=== PATIENT | female | born 2000 | race Caucasian/White ===

== ENCOUNTER 2025-01-20 10:54 | Outpatient (AMB) | payer OTHER, SELFPAY ==
--- NOTE | 2025-01-20 10:59 | A.OFFPC_ITS ---
Vital Signs 01/20/25 11:08 Height 5 ft 8 in Weight 265 lb BMI 40.3 BP 97/66 Blood Pressure Location Rt brachial Position Sitting Respiration 12 Pulse 77 Pulse Source Pulse Oximeter Temp 96.8 F Temp Source Oral Pulse Oximetry (%) 98 Oxygen Delivery Method Room Air Intake Visit Reasons: EST CARE Intake Note: new patient to establish care Photo Equipment Technician Required: No Allergies No Known Allergies Allergy (Verified 01/20/25 11:15) Medication List - Last Reconciled 01/20/25 by UHMZA ValdesP- aripiprazole (Abilify) 15 mg PO DAILY benztropine 0.5 mg PO DAILY gabapentin 300 mg PO BEDTIME prazosin 1 mg PO BEDTIME sertraline (Zoloft) 50 mg PO DAILY trazodone 50 mg PO BEDTIME PRN Tobacco use date assessed: 01/20/25 Dental Screening Dental Screen Date: 01/20/25 Did you have a dental visit in the last 12 months?: Yes Did you have a dental problem in the last 6 months where you did not have access to dental care?: No Was dental information given to patient?: Patient has dentist HPI HPI Comments History of Present Illness Details 24 y/o F with obesity, bipolar, MDD, ANNAMARIA , Hep c cured, GERD, chronic abd pain, Vape nicotine, Heroin abuse in remission Surgery wisdom teeth removal family hx: paternal uncle pancreatic ca (), no DM or other cancers, MGM + CAD Social: 1 dtr alive and well, age 4. Lives w/ dtr. 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 - The patient experiences nicotine use d isorder, related to vaping, and reports high frequency use with difficulty quitting. Vaping nicotine wants to quit - Binge eating contributes to weight man agement challenges, complicated by current psychiatric medication regimen. - Chronic gastrointestinal disturbances are noted, though not yet evaluated by a specialist. -reports hx of high triglycerides, conc erning for potential cardiovascular risk exacerbated by nicotine use. 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 - Reports using nicotine vaping heavily - No ongoing illicit substance use; main tains sobriety post- - Mother to one daughter, aged nearly fo ur - Desires counseling services for mental health but encounters insurance-related difficulties Health Maintenance - Tetanus immunization up to date (last received in 2020) - Pending influenza vaccination during c urrent visit - Recent STD screening with normal resul ts from WAREHOUSE DIRECTOR - Partaking in psychiatric care for [facility], bipolar disorder medication recently adjusted Review of [facility] - wears contacts, UTD on eye exam - Gastrointestinal: Reports chronic abdo randy pain, recurrent diarrhea, and constipation. Hep C cured w/ viral meds - Neurologic: Denies visual changes but mentions dependence on contact lenses Physical Exam General: Well developed, well nourished, in no acute distress. Appears stated age. Head: Normocephalic, atraumatic. Eyes: Pupils are equal, round and reactive to light and accommodation. Conjunctivae are clear. Vision grossly normal. Patient wears contact lenses. Ears: TMs clear AU, EACS WNL Nose: Patent, without discharge. Neck: Supple, no adenopathy or thyromegaly. No pain or discomfort noted upon examination. Breast: Edu on SBE Lungs: Clear to auscultation bilaterally. No rales, rhonchi or wheeze noted. Good air flow in all garrett. Heart: Regular rate and rhythm. No murmurs, click, rubs or gallops are noted. Abd: soft, hepatomegaly, nontender : Deferred. Reviewed recommendations for routine [employer] Pulses: Peripheral pulses are equal and palpable bilaterally. Extremities: No clubbing, cyanosis nor edema is noted. No swelling in lower legs. Neurologic: Gait and station normal. Cranial Nerves 2-12 intact. Motor strength grossly symmetrical and intact. No sensory loss. Balance normal. Skin: No rashes, ulcers, or lesions noted. Turgor is good. Skin color is good. Hair and nails are without abnormalities. Psych: Normal eye contact, affect and mood appropriate, and normal interactions. Patient is alert and appropriate to context. Positive screens for anxiety and depression, currently managed by psychiatry. Discussion Notes During the visit, I reviewed the patient's primary concerns, including vaping, binge eating, and gastrointestinal symptoms. I recommended seeing a gastr oenterologist to evaluate her chronic gastrointestinal disturbances. In discussing nicotine cessation, I emphasized the need to incorporate psychiatric input due to her history of substance use. I also provided a referral for counseling through [facility] for additional support. We discussed ongoing monitoring of her psychiatric medications and how those might affect her associated conditions, stressing the importance of maintaining regular check-ins with her psychiatrist. The patient agreed to undertake screening labs today to assess general health parameters like liver and kidney function, and a referral for gastrointestinal evaluation was ordered. For vaccination updates, the patient consented to receiving a flu shot today. We will follow up on her lab results via the patient portal. Assessment and Plan 1. Nicotine Use Disorder: The patient is struggling with pervasive vaping habits. Coordination with psychiatry will continue to manage cessation efforts, acknowledging her past substance abuse issues. 2. Binge Eating Disorder: This condition appears to interfere with weight management, possibly linked to psychiatric medications. A dual approach of psychotherapy and careful pharmacological management is being pursued. 3. Gastrointestinal Symptoms: A comprehe nsive evaluation by a solid glass rod dowel machine operator is required given the patient's chronic abdominal pain, diarrhea, and constipation. 4. Hypertriglyceridemia: The observed el evation in triglycerides suggests risk factors for cardiovascular disease, further exacerbated by nicotine use. My plan involves dietary management and addressing vaping. 5. Mental Health Disorders: Existing psy chiatric conditions are under active management with recent medication adjustments; additional counseling support has been arranged. Patient Instructions - Follow up with solid glass rod dowel machine operator to a ssess chronic stomach pain, diarrhea, and constipation - Continue psychiatric care with Dr. Herbie Joseph - Utilize the referral to [facility] for therapy services - Maintain current medication regimen an d inform of any changes - Receive the flu vaccine today - Engage with the patient portal for lab results and communication with the office Consent Consent for procedures, screenings, and management plans including gastrointestinal referral and psychotherapy services has been discussed and documented. The benefits of the interventions and continuity of the patient's psychiatric and primary care coverage have been reviewed. The patient demonstrated understanding and agreed to the outlined plans, including immediate flu vaccination. Patient was informed and verbally consented to the use of an ambient scribe for clinic note documentation during this visit. An additional 20 minutes was spent addressing the problem(s) noted at todays visit. This includes time spent before the visit reviewing the chart, time spent during the visit, and time spent after the visit on documentation reviewing labo ratory results, diagnostic imaging, medications, performing a medically necessary evaluation, counseling on diagnoses, care coordination, ordering appropriate tests, ordering appropriate medications, review of tests performed by other providers, reporting test results with the patient, communication with other healthcare providers. RTO 1 year CPE, sooner PRN PFSH Medical History (Updated 01/20/25 @ 11:41 by Teresa Phillips, [facility]) History of heroin abuse Acne Diarrhea Stomachache GERD (gastroesophageal reflux disease) Drug abuse Migraines Surgical History (Updated 01/20/25 @ 11:16 by Treva Amado) [place] teeth extracted Family History (Updated 01/20/25 @ 11:13 by Treva Amado) Mother HTN (hypertension) Cardiovascular disease Alcoholism Father HTN (hypertension) Cardiovascular disease Alcoholism Maternal Grandmother High cholesterol Cardiovascular disease Alcoholism Social History (Updated 01/20/25 @ 11:12 by Treva Amado) Household Members: Children Both parents involved: No Caregiver staying overnight: No Housing: Apartment Are you a primary patient care representative to a significant other at home: Yes Do you presently have visiting nurse or other home services: No 75 years or older and lives alone: No Alcohol intake: never Patient Tobacco Use Status: Never used Tobacco e-Cigarette/Vaping Use: Currently Using Second Hand Smoke Exposure: No service: No Current occupational status: employed 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 1. Little interest or pleasure in doing things: not at all 2. Feeling down, depressed, or hopeless: not at all 3. Trouble falling or staying asleep, or sleeping too much: nearly every day 4. Feeling tired or having little energy: nearly every day 5. Poor appetite or overeating: nearly every day 6. Feeling bad about yourself - or that you are a failure or have let yourself or your family down: not at all 7. Trouble concentrating on things, such as reading the newspaper or watching television: not at all 8. Moving or speaking so slowly that other people could have noticed. Or the opposite - being so fidgety or restless that you have been moving around a lot more than usual: not at all 9. Thoughts that you would be better off or of hurting yourself in some way: not at all Total score: 9 Depression Screening Interpretation: Positive Depression Screening Follow-up: Existing condition and In treatment Depression Screening Done: Yes 51515 - PHQ-9 Billing: Yes Source: Developed by Drs. Conrad Steel, Shell Dong, Gaetano José and colleagues, with an educational jeison from [employer]. Thrive Questionnaire Date Thrive assessed: 01/20/25 I am a: Patient What is your living situation today?: I have a steady place to live Within the past 12 months, did the food you bought not last and you didn't have the money to get more?: Never true Within the past 12 months, did you worry whether your food would run out before you got money to buy more?: Never true Do you have trouble paying for medicines?: No Do you have trouble getting transportation to medical appointments?: Yes Do you have trouble paying your heating and electricity bill?: No Do you have trouble taking care of your child, family member or friend?: No Do you have trouble with day-to-day activities such as bathing, preparing meals, shopping, managing finances, etc.?: No Are you currently unemployed and looking for a job?: No Are you interested in more education?: Yes Please select the resources that you would like help with: None Currently or been in a relationship where the following occur: No concerns reported THRIVE Score: 1 AUDIT C Alcohol Use Questionnaire (AUDIT-C) 1. How often do you have a drink containing alcohol?: Never 3. How often do you have six or more drinks on one occasion?: Never Total Score: 0 Score Reviewed/Action Taken: Yes ANNAMARIA-7 AMB Questionnaire ANNAMARIA-7 Date ANNAMARIA - 7 assessed: 01/20/25 Feeling nervous, anxious, or on edge: 1 = Several days Not being able to stop or control worryin = Several days Worrying too much about different things: 1 = Several days Trouble relaxin = Several days Being so restless that it is hard to sit still: 1 = Several days Becoming easily annoyed or irritable: 1 = Several days Feeling afraid as if something awful might happen: 1 = Several days Total ANNAMARIA-7 score (0-4 normal; 5-9 mild; 10-14 moderate; 15-21 severe): 7 Source: Developed by Drs. Conrad Steel, Shell Dong, Gaetano José and colleagues, with an educational jeison from [employer]. ANNAMARIA-7 Assessment Billing ANNAMARIA-7 Assessment Tool: ANNAMARIA-7 Assessment 00337 Physical exam (Primary Care) Vital Signs: Last Vital Signs Temp 96.8 F 01/20/25 11:08 Pulse 77 01/20/25 11:08 Resp 12 01/20/25 11:08 BP 97/66 01/20/25 11:08 Pulse Ox 98 01/20/25 11:08 Oxygen Delivery Method Room Air 01/20/25 11:08 BMI result Body Mass Index 40.3 BMI Assessment/Plan discussion: High BMI High, discussed plan: lifestyle Tobacco/Smoking Status: Tobacco use Status Tobacco use date assessed 01/20/25 01/20/25 11:10 Patient Tobacco Use Status Never used Tobacco 01/20/25 11:12 e-Cigarette/Vaping Use Currently Using 01/20/25 11:12 Are you ready to quit: Yes Tobacco cessation counseling provided: Yes Items discussed: Nicotine replacement, QuitWorks and Other Relapse Prevention: discussed the importance of a supportive environment, discussed extending NRT, discussed negative mood or depression after quitting, weight gain after smoking is common and discussed dietary, exercise and/or lifestyle changes Number of minutes spent counselin CPT code: 81848 - 4-10 Minutes PHQ-9: PHQ-9 Score PHQ-9: Total score 9 01/20/25 11:19 Depression Screening Interpretation: Positive Depression Screening Follow-up: Existing condition and In treatment Thrive Assessment: Date of Thrive Assessment Date Thrive assessed 01/20/25 01/20/25 11:10 Currently or been in a relationship where the following occur: No concerns reported Office Procedures Flu Questionnaire Does the patient have a severe egg allergy?: No Does the patient have severe life threatening allergies?: No Does the patient have a fever or illness today?: No Has the patient ever had Guillain-[place] Syndrome?: No Has the patient ever had any past reaction to a flu shot?: No Immunizations Fluarix Triv (PF) 45 mcg (15 mcg x 3)/0.5 mL IM syringe Performing Provider: GEORGIANA Valdes Performing Location: [facility] Administered by: Mickie Cruz RN on 01/20/25 11:52 Dose Route Admin Location Dispensed Lot Number Expiration Date NDC Aviation Safety Technician 0.5 mL IM Right Deltoid 0.5 mL [id number] 05/26/25 [id number] [employer] VIS Given Date VIS Provided VIS Publication Date 01/20/25 Single Vaccine 21 Eligibility Eligibility Date Funding Source Not [facility] Eligible 01/20/25 Private Coding Level of Care Code Est Pt Level 3 (66849) New Pt Prev Care 18-39yr(49374 Diagnoses Encounter for general adult medical examination with abnormal findings Z00.01 Obesity, morbid, BMI 40.0-49.9 E66.01 BMI 40.0-44.9, adult Z68.41 Vapes nicotine containing substance Z72.0 Gastroesophageal reflux disease without esophagitis K21.9 Esophagitis presence: without esophagitis Alternating constipation and diarrhea R19.8 Chronic abdominal pain R10.9; G89.29 Moderate episode of recurrent major depressive disorder F33.1 Major depression episode severity: moderate ANNAMARIA (generalized anxiety disorder) F41.1 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 F11.11 Laboratory exam ordered as part of routine general medical examination Z00.00 Influenza vaccination administered at current visit Z23 Up to date with tetanus vaccination Z92.29 Hepatitis C virus infection cured after antiviral drug therapy Z86.19 Encounter to establish care Z76.89 Additional Codes ANNAMARIA-7 Assessment Billing - ANNAMARIA-7 Assessment Tool: ANNAMARIA-7 Assessment 52239 ([id number]) PHQ-9 - 64292 - PHQ-9 Billing: Yes ([id number]) Vital Signs *Quality* - CPT code: 34017 - 4-10 Minutes ([id number]) Assessment & Plan Assessment & Plan (1) Encounter for general adult medical examination with abnormal findings: Code(s): Z00.01 - Encounter for general adult medical examination with abnormal findings (2) Obesity, morbid, BMI 40.0-49.9: Code(s): E66.01 - Morbid (severe) obesity due to excess calories Category: Medical (3) BMI 40.0-44.9, adult: Code(s): Z68.41 - Body mass index [BMI] 40.0-44.9, adult Category: Medical (4) Vapes nicotine containing substance: Code(s): Z72.0 - Tobacco use Category: Social Hx Plan: Smoking Cessation How to Quit There are a lot of ways to quit smoking and many resources to help you. Family members, friends, and co-workers may be supportive or encouraging, but to be successful the desire and commitment to quit must be your own. Most people who have been able to successfully quit smoking made at least one unsuccessful attempt in the past. Try not to view past attempts to quit as failures, but rather as learning experiences. Stopping smoking or using smokeless tobacco is difficult, but anyone can do it. Know the symptoms to expect when you stop. Common symptoms include: ? An intense craving for nicotine ? Anxiety, tension, restlessness, frustration, or impatience ? Difficulty concentrating ? Drowsiness or trouble sleeping, as well as bad dreams and nightmares ? Drowsiness and trouble sleeping ? Headaches ? Increased appetite and weight gain ? Irritability or depression How severe your symptoms are depends on how long you smoked and how many cigarettes you smoked each day. Feel ready to quit? ? First and foremost, set a quit date and quit completely on that day. Before your quit date, you may begin reducing your cigarette use. But remember, there is no safe level of cigarette smoking. ? List the reasons why you want to quit. Include both short- and long-term benefits. ? Identify the times you are most likely to smoke. For example, do you tend to smoke when feeling stressed or down? When out at night with friends? While drinking coffee or alcohol? When bored? While driving? Right after a meal or sex? During a work break? While watching TV or playing cards? When you are with other smokers? ? Let all of your friends, family, and co-workers know of your plan to stop smoking and your quit date. Just being aware that they know what you're going through can be helpful, especially when you are grumpy. ? Get rid of all your cigarettes just before the quit date, and clean out anything that smells like smoke, such as clothes and furniture. Make a plan about what you will do instead of smoking at those times when you are most likely to smoke. ? Be as specific as possible. For example, drink tea instead of coffee -- tea may not trigger the desire for a cigarette. Or, take a walk when you feel stressed. ? Remove ashtrays and cigarettes from the car. Place pretzels or hard candies there instead. Pretend-smoke with a straw. ? Find activities that focus your hands and mind but are not taxing or fattening. Computer games, solitaire, knitting, sewing, and crossword puzzles may help. ? If you normally smoke after eating, find other ways to end a meal. Play a tape or CD, eat a piece of fruit, get up and make a phone call, or take a walk (a good distraction that also wan calories). Make other changes in your lifestyle. ? Change your daily schedule and habits. Eat at different times or eat several small meals instead of three large ones. Sit in a different chair or even a different room. ? Satisfy your oral habits by eating celery or other low-calorie snack, chewing sugarless gum, or sucking on a cinnamon stick. ? Go to public places and restaurants where smoking is prohibited or restricted. ? Eat regular meals and don't eat too much candy or sweet things. ? Get more exercise. Take walks or ride a bike. Exercise helps relieve the urge to smoke. Set short-term quitting goals and reward yourself when you meet them. ? Every day, put the money you normally spend on cigarettes in a jar. Then buy something pleasurable after a period of time. ? Try not to think about all the days ahead you will need to avoid smoking. Take it one day at a time. ? Even one puff or one cigarette will make your desire for more cigarettes even stronger. However, it is normal to make mistakes. So even if you have one cigarette, you don't need to take the next one. Other tips to help you quit smoking and stick to it: ? Enroll in a smoking cessation program (hospitals, health departments, community centers, and work sites often offer programs). Learn about self-hypnosis or other techniques. ? Ask your health care provider about prescription medications that are safe and appropriate for you. ? Find out about nicotine patches, gum, and sprays. The [place] [employer]'s web site -- www.cancer.org -- is an excellent resource for smokers who are trying to quit, and the [employer] [place] [employer] can help some smokers kick the habit. Above all, don't get discouraged if you aren't able to quit smoking the first time. Nicotine addiction is a hard habit to break. Try something different next time. Develop new strategies, and try again. Many people take several attempts to finally kick the habit. (5) GERD (gastroesophageal reflux disease): Code(s): K21.9 - Gastro-esophageal reflux disease without esophagitis Category: Medical Qualifiers: Esophagitis presence: without esophagitis Qualified Code(s): K21.9 - Gastro-esophageal reflux disease without esophagitis (6) Alternating constipation and diarrhea: Code(s): R19.8 - Other specified symptoms and signs involving the digestive system and abdomen Category: Medical (7) Chronic abdominal pain: Code(s): R10.9 - Unspecified abdominal pain; G89.29 - Other chronic pain Category: Medical (8) MDD (major depressive disorder), recurrent episode: Code(s): F33.9 - Major depressive disorder, recurrent, unspecified Category: Medical Qualifiers: Major depression episode severity: moderate Qualified Code(s): F33.1 - Major depressive disorder, recurrent, moderate (9) ANNAMARIA (generalized anxiety disorder): Code(s): F41.1 - Generalized anxiety disorder Category: Medical (10) 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: Comment: was on vivitrol in the past Code(s): F11.11 - Opioid abuse, in remission Category: Medical (11) Laboratory exam ordered as part of routine general medical examination: Code(s): Z00.00 - Encounter for general adult medical examination without abnormal findings Category: Medical (12) Influenza vaccination administered at current visit: Code(s): Z23 - Encounter for immunization Category: Medical (13) Up to date with tetanus vaccination: Comment: 2020 Code(s): Z92.29 - Personal history of other drug therapy Category: Medical (14) Hepatitis C virus infection cured after antiviral drug therapy: Code(s): Z86.19 - Personal history of other infectious and parasitic diseases Category: Medical (15) Encounter to establish care: Code(s): Z76.89 - Persons encountering health services in other specified circumstances Plan . Orders: Orders Comprehensive Met. Panel Today E66.01 - Morbid (severe) obesity due to excess calories, Z00.00 - Encounter for general adult medical examination without abnormal findings Lipid Panel Today E66.01 - Morbid (severe) obesity due to excess calories, Z00.00 - Encounter for general adult medical examination without abnormal findi ngs Microalbumin, Random (w Creat) Today E66.01 - Morbid (severe) obesity due to excess calories, Z00.00 - Encounter for general adult medical examination without abnormal findings Vitamin B12 and Folate Today E66.01 - Morbid (severe) obesity due to excess calories, Z00.00 - Encounter for general adult medical examination without abnormal findings Influenza [id number] Immunization Today Z23 - Encounter for immunization Hemoglobin A1c Today E66.01 - Morbid (severe) obesity due to excess calories, Z00.00 - Encounter for general adult medical examination without abnormal findings TSH reflex Free T4 Today E66.01 - Morbid (severe) obesity due to excess calories, Z00.00 - Encounter for general adult medical examination without abnormal findings Vitamin D 25-OH Total Today E66.01 - Morbid (severe) obesity due to excess calories, Z00.00 - Encounter for general adult medical examination without abnormal findings Referrals Gastroenterology Referral G89.29 - Other chronic pain, K21.9 - Gastro- esophageal reflux disease without esophagitis, R10.9 - Unspecified abdominal pain, R19.8 - Other specified symptoms and signs involving the digestive system and abdomen Counseling Referral F11.11 - Opioid abuse, in remission, F33.9 - Major depressive disorder, recurrent, unspecified, F41.1 - Generalized anxiety disorder Medications: New Fluarix Triv [id number] (PF) (flu vacc [id number] 6mos up(PF)) 0.5 mL IM ONCE 0.5 mL 0RF NS Z23 - Encounter for immunization Patient Instructions: Health screenings for women You should visit your health care provider from time to time, even if you are healthy. The purpose of these visits is to: Screen for medical issues Assess your risk for future medical problems Encourage a healthy lifestyle Update vaccinations and other preventive care services Help you get to know your provider in case of an illness Information Even if you feel fine, you should still see your provider for regular checkups. These visits can help you avoid problems in the future. For example, the only way to find out if you have high blood pressure is to have it checked regularly. High blood sugar and high cholesterol levels also may not have any symptoms in the early stages. A simple blood test can check for these conditions. There are specific times when you should see your provider or receive specific health screenings. The [place] Preventive Services Task Force publishes a list of recommended screenings. Below are screening guidelines for women ages 18 to 39. BLOOD PRESSURE SCREENING Your blood pressure should be checked at least once every 3 to 5 years if: Your blood pressure is in the normal range (top number less than 120 mm Hg and bottom number less than 80 mm Hg) You don't have risk factors for high blood pressure Ask your provider if you need your blood pressure checked more often if: The top number is 120 to 129 mm Hg or the bottom number is 70 to 79 mm Hg You have diabetes, heart disease, kidney problems, are overweight, or have certain other health conditions You have a first-degree relative with high blood pressure You are Black You had high blood pressure during a If the top number is 130 mm Hg or greater or the bottom number is 80 mm Hg or greater, this is considered stage 1 hypertension. Schedule an appointment with your provider to learn how you can reduce your blood pressure. Watch for blood pressure screenings in your area. Ask your provider if you can stop in to have your blood pressure checked. BREAST CANCER SCREENING Experts do not agree about the benefits of breast self-exams in finding breast cancer or saving lives. Talk to your provider about what is best for you. A screening mammogram is not recommended for most women under age 40. Your provider may discuss and recommend mammograms, MRI scans, or ultrasounds if you have an increased risk for breast cancer, such as: A mother or sister who had breast cancer at a young age (most often starting screening earlier than the age the close relative was diagnosed) You carry a high-risk genetic marker CERVICAL CANCER SCREENING Cervical cancer screening should start at age 21 years unless your provider advises otherwise. After the first test: Women ages 21 through 29 should have a Pap test every 3 years. Exoprts do not agree on whether HPV testing is recommended for this age group. Women ages 30 through 65 should be screened with either a Pap test every 3 years or the HPV test every 5 years or both tests every 5 years (called cotesting ). Women who have been treated for precancer (cervical dysplasia) should continue to have Pap tests for 20 years after treatment or until age 65, whichever is longer. If you have had your uterus and cervix removed (total hysterectomy), and you have not been diagnosed with cervical cancer or precancer (high grade cervical neoplasia), you do not need cervical cancer screening. CHOLESTEROL SCREENING Cholesterol screening should begin at: Age 45 for women with no known risk factors for coronary heart disease Age 20 for women with known risk factors for coronary heart disease Repeat cholesterol screening should take place: Every 5 years for women with normal cholesterol levels More often if changes occur in lifestyle (including weight gain and diet) More often if you have diabetes, heart disease, kidney problems, or certain other conditions DIABETES SCREENING You should be screened for diabetes starting at age 35 and then repeated every 3 years if you have no risk factors for diabetes. Screening may need to start earlier and be repeated more often if you have other risk factors for diabetes, such as: You have a first degree relative with diabetes. You are overweight or have obesity. You have high blood pressure, prediabetes, or a history of heart disease. Screening for diabetes should be done if you are planning to become and you are overweight and have other risk factors such as high blood pressure. DENTAL EXAM Go to the dentist once or twice every year for an exam and cleaning. Your dentist will evaluate if you need more frequent visits. EYE EXAM Have an eye exam every 5 to 10 years before age 40. If you have vision problems, have an eye exam every 2 years or more often if recommended by your provider. You should have an eye exam that includes an examination of your retina (back of your eye) at least every year if you have diabetes. IMMUNIZATIONS Commonly needed vaccines include: Flu shot: get one every year. COVID-19 vaccine: ask your provider what is best for you. Tetanus-diphtheria and acellular pertussis (Tdap) vaccine: have one at or after age 19 as one of your tetanus-diphtheria vaccines if you did not receive it as an adolescent. Tetanus-diphtheria: have a booster (or Tdap) every 10 years. Varicella vaccine: receive 2 doses if you never had chickenpox or the varicella vaccine. Hepatitis B vaccine: receive 2, 3, or 4 doses, depending on your exact circumstances. Measles, mumps, and rubella (MMR) vaccine: receive 1 to 2 doses if you are not already immune to MMR. Your provider can tell you if you are immune. Ask your provider about the human papillomavirus (HPV) vaccine if: You have not received the HPV vaccine in the past You have not completed the full vaccine series (you should catch up on this shot) Ask your provider if you should receive other immunizations if you have certain health problems that increase your risk for some diseases such as pneumonia. INFECTIOUS DISEASE SCREENING Women who are sexually active should be screened for chlamydia and gonorrhea up until age 25. Women 25 years and older should be screened for chlamydia and gonorrhea if at high risk. Screening for hepatitis C: All adults ages 18 to 79 should get a one-time test for hepatitis C. people should be screened at every . Screening for human immunodeficiency virus (HIV): All people ages 15 to 65 should get a one-time test for HIV. Depending on your lifestyle and medical history, you may also need to be screened for infections such as syphilis and HIV, as well as other infections. PHYSICAL EXAM All adults should visit their provider from time to time, even if they are healthy. The purpose of these visits is to: Screen for disease Assess your risk of future medical problems Encourage a healthy lifestyle Update your vaccinations and other preventive care services Maintain a relationship with a provider in case of an illness Your height, weight, and BMI should be checked at every exam. During your exam, your provider may ask you about: Depression and anxiety Diet and exercise Alcohol and tobacco use Safety issues, such as using seat belts, smoke detectors, and intimate partner violence Your medicines and risk for interactions SKIN SELF-EXAM Your provider may check your skin for signs of skin cancer, especially if you're at high risk, such as if you: Have had skin cancer before Have close relatives with skin cancer Have a weakened immune system OTHER SCREENING Talk with your provider about colon cancer screening if you have a strong family history of colon cancer or polyps, or if you have had inflammatory bowel disease or polyps yourself. Routine bone density screening of women under 40 is not recommended. Walk-In Care (Urgent Care): We Make it Easy Walk-in for urgent medical issues such as: ? Seasonal Allergies ? Insect Bites ? Cough ? Diarrhea ? Acute Asthma Attacks ? Back, Knee or Joint Pain ? Ear Infection ? Fever without a Rash ? Headaches ? Nausea ? [place] [facility], Rash or Skin Irritation ? Sore Throat ? Sports Physicals ? Vomiting Most insurances are accepted. Patients do not need to be part of the [facility] to seek care at the walk-in clinic. Locations [address] [place] [address] ? [phone] [facility] Walk-In Care in [place] provides services to ages 18 and over. Open Monday-Monday: 8 a.m. to 5 p.m. and Monday: 9 a.m. to 3 p.m.* *Hours may vary due to staffing availability. To confirm Walk-In Care hours in [place], please call [phone]. [address] [place] [address] ? [phone] [facility] Walk-In Care in [place] provides services to ages 12 and over. Open Monday-Monday: 8 a.m. to 5 p.m. Hours may vary due to staffing availability. To confirm Walk-In Care hours in [place], please call [phone]. LABORATORY SERVICES: [facility] Lab ? Primary Location [address] [place] [address] Monday through Monday 6:00 AM ? 5:00 PM Monday 7:00 AM ? 11:00 AM* [phone] The [facility] Lab is centrally located near the front entrance of the [facility] for easy outpatient access. Convenient parking is provided for outpatients. *Hours may vary due to staffing availability. To confirm Laboratory hours for any location, please call [phone]. Offsite Location For your convenience, we offer offsite laboratory draw stations at the following locations: [address] [place] [address] ? [address], [address] Monday through Monday 7:30 AM ? 1:00 PM* [phone] *Hours may vary due to staffing availability. To confirm Laboratory hours for any location, please call [phone]. [place] ? [address] Monday through Monday 6:00 AM ? 3:30 PM* Monday 6:30 AM ? 3 PM* [phone] *Hours may vary due to staffing availability. To confirm Laboratory hours for any location, please call [phone] [place] [address] Monday through Monday 7:30 AM ? 4:00 PM* [phone] *Hours may vary due to staffing availability. To confirm Laboratory hours for any location, please call [phone] [place] [address] Monday through 9:00 AM ? 4:00 PM* *Hours may vary due to staffing availability. To confirm Laboratory hours for any location, please call [phone]. Appointments are not necessary. Walk-ins are welcome. Like all the departments throughout the [facility], our Lab undergoes frequent reviews to ensure the quality and accuracy of test results, and our staff takes special pride in its status as a nationally accredited facility. Patient Portal: ONE PATIENT. ONE RECORD. BETTER CARE. [facility] has a fully integrated, cutting- edge mobile electronic health information system that has revolutionized the way we care for our patients and manage our organization. This system improves communication and coordination enabling us to provide safe, higher-quality care, and an overall positive experience for staff and patients. Our first priority, as always, is to deliver the highest quality care possible. The system is running in the background supporting that priority. This portal is for all [facility] services and practices. If you are experiencing any technical difficulties with enrolling or logging into the Patient Portal please complete the [facility] Patient Portal Technical Support Form. [facility] now offers a new secure on-line interactive tool for patients to review their health information ? ?Patient Portal. This interactive web portal will enable patients and their families to take an active role in their care by providing easy, secure access to their health information via the internet. The Patient Portal provides patients with instant access to their health information, including laboratory results, medications, allergies, demographic information, visit history, and more. In addition to managing their own care, parents and health care proxies with authorized consent will appreciate the ability to access the records of those individuals for whom they provide care. Please note: if you wish to gain access (Proxy) to another patient?s portal, you will be required to come to the Medical Records Department in person at [facility]. Both the patient giving proxy access and the proxy will need to provide photo identification and complete the appropriate authorization. The Patient Portal also allows track their appointments online. The [facility] Patient Portal also saves patients time by allowing them to submit updates to their demographic and contact information prior to their visits. Portal email notifications will also alert patients to any new activity on their portal, such as test results and new appointments. In order to initially enroll in the [facility] Patient Portal, you will need to enter some required information including the following: * your [facility] Medical Record number * your personal home email address * name * date of Please note: In order to enroll in the [facility] Patient Portal, we need to have your email address on file in your electronic medical record. ?The email address needs to be specific for one person (yourself) in order for your Portal enrollment to be successful. ?You can update your email address in person with our Registration staff when you are registering for a hospital visit. ?Otherwise, you will need to come to the Health Information Management (Medical Records) Department at [facility]. ?We are open from Monday ? Monday from 7:30 a.m. ? 4:30 p.m. ?You will be required to present a photo id. Once you have successfully enrolled in the Patient Portal, you will receive a one-time user id and password for the Portal, sent to your email address. ?This will allow you to log into the Patient Portal within 99 hrs and reset your own logon id and password, and define personal security questions. ?Once your permanent login and password have been set, you can log into the [facility] Patient Portal at any time via the blue button above or from the Portal Logon button on any page of the [facility] website. [facility] encourage all of our patients to enroll in Patient Portal as it presents a valuable opportunity for patients and their families to actively participate in their care and stay healthy Welcome to [facility]. ?We look forward to working with you.
[2025-01-20 11:08] VITALS: BP 97/66; PULSE 77; RESP 12; TEMP 36; O2SAT 98; BMI 40.3
--- OUTSIDE RECORDS SUMMARY | 2025-01-20 12:27 | XMS_ITS | Encounter Summary ---
Author Organization [facility] Address [address] [place] [phone] Phone Care Team Providers Care Vocational Instructor Name Role Phone Pcp, Does Not Have A Primary Care Provider Unava ilable Reason for Visit * Reason Comments Cough C/o started 2 days c ongested cough getting worse lightheaded when coughing wheezing chills , Encounter Details Date Type Department Care Team ([facility] Contact Info) Description 12/25/2024 5:45 PM EST Office Visit [facility] [place] [address] [place] [address] Kendall Rousseau PA [address] [place] [phone] Acute cough (Primary Dx) Social History Tobacco Use Types Packs/Day Years Used Date Smoking Tobacco: Never Smokeless Tobacco: Never Alcohol Use Standard Drinks/Week Comments Never 0 (1 standard drink = 0.6 oz pur e alcohol) Comments No Sex and Gender Information Value Date Recorded Sex Assigned at Not on file Legal Sex Female 5:36 PM EDT Gender Identity Not on file Sexual Orientation Not on file documented as of this encounter Last Filed Vital Signs Vital Sign Reading Time Taken Comments Blood Pressure 118/79 12/25/2024 6:34 PM EST Pulse 69 12/25/2024 6:34 PM EST Temperature 36.3 ??C (97.4 ??F) 12/25/2024 6:34 PM ES T Respiratory Rate 20 12/25/2024 6:34 PM EST Oxygen Saturation 95% 12/25/2024 6:34 PM EST Inhaled Oxygen Concentration - - Weight 113.4 kg (250 lb) 12/25/2024 6:34 PM EST Height 172.7 cm (5' 8 ) 12/25/2024 6:34 PM EST Body Mass Index 38.01 12/25/2024 6:34 PM EST documented in this encounter Patient Instructions * Patient Instructions* Kendall Rousseau PA - 12/25/2024 5:45 PM EST Images from the original note were not included. Thank you for choosing [facility] today! Diagnosis: Acute cough Benzonatate, Flonase and albuterol were sent to your pharmacy use as directed Returned to the clinic or follow up with your primary doctor in 1 week if no improvement. -Your vital signs were reviewed. -We have discussed your assessment and plan and all questions have been answered. -Discharge information provided. Please review all provided printouts. -Urgent Care is not a substitute for ongoing care with a primary care provider. Please follow up with your primary care provider for continuing symptoms. If you do not have a primary doctor please contact that connection center at -If you experience worsening or severe symptoms go to the nearest emergency department immediately for evaluation. After Visit Summary (AVS) provided to patient: Included information on causes, treatment and clinical course of cough All patient/parent questions answered We'll see the patient back in urgent care on an as-needed basis, reevaluate, and proceed appropriately. Please call with questions, concerns, or if you are not improving.Patient Education Cough, Runny Nose, and the Common Cold Discharge Instructions About this topic The common cold is an infection in the nose and throat. A tiny germ, called a virus, causes this infection. It often affects your nose, throat, ears, and sinuses. A cold can easily spread from personto person. Coughing, sneezing, or touching something with the germ on it spreads the cold. Most colds go away on their own without treatment. Antibiotics will not help a cold. Your doctor may order drugs to help with the signs of a cold. Even though you may feel very sick, the common cold is not a health emergency. What care is needed at home? Ask your doctor what you need to do when you go home. Make sure you ask questions if you do not understand what the doctor says. To help you feel better: Use a cool mist humidifier to avoid breathing dry air. Use hard candy or cough drops to soothe sore throat and cough. Gargle with salt water. Mix 1/2 teaspoon (2.5 grams) salt with a cup (240 mL) of warm water a few times a day. [place] saltwater mist in each nostril. Any normal saline spray works. Sip warm liquids to keep your throat moist. Take warm, steamy showers to help soothe the cough. Do not smoke or be in smoke-filled places. Avoid things that may cause breathing problems like vaping, fumes, pollution, dust, and other common allergens. You may want to use vsla-cxk-vursxgo medicines for allergies or acid reflux if your cough is due toone of these problems. You can also use an dksz-xnd-iamycqs cough medicine. Drink plenty of fluids whenever you are thirsty. What follow-up care is needed? Your doctor may ask you to make visits to the office to check on your progress. Be sure to keep these visits. What drugs may be needed? Your doctor may order drugs to: Help a stuffy nose Lower a fever Help with pain Treat an allergy Help with cough Always talk to your doctor before you take any drugs. This includes wkxu-imt-yesjlgj (OTC) drugs and herbal supplements. This is very important if you have high blood pressure. Will physical activity be limited? Get lots of rest. Sleep when you are feeling tired. Avoid doing tiring activities. What changes to diet are needed? Chicken soup may be helpful. Warm fluids help thin mucus and help the body get rid of it easier. What problems could happen? Colds may cause signs of asthma for people who have asthma. Sinus or ear infection Lung infections Bronchitis What can be done to prevent this health problem? Wash your hands often with soap and water for at least 20 seconds, especially after coughing or sneezing. Alcohol-based hand sanitizers also work to kill the virus. If you are sick, cover your mouth and nose with tissue when you cough or sneeze. You can also coughinto your elbow. Throw away tissues in the trash and wash your hands after touching used tissues. Clean items and surfaces you most often touch like door handles, remotes, phones, or toys. Wipe them with a disinfectant. This can help reduce the spread of infection. Do not get too close (kissing, hugging) to people who are sick. Do not share towels or hankies with anyone who is sick. Stay away from crowded places. Keep your hands away from your eyes and nose because the virus can enter easily to those body areas. Get a flu shot each year. When do I need to call the doctor? You have chest pain when you cough or trouble breathing. You start to cough up blood or yellow or green mucus. You have a fever of 100.4??F (38??C) or higher or chills. You cough so hard you throw up. You are still coughing in 10 days. Helpful tips It is normal that mucus from your runny nose may become thicker and change color. Do not take an antibiotic. Instead, drink more water-based fluids, especially hot tea and soups. Most colds go away within a week. If you are still sick after 14 days, see your doctor. Teach Back: Helping You Understand The Teach Back Method helps you understand the information we are giving you. After you talk with the staff, tell them in your own words what you learned. This helps to make sure the staff has described each thing clearly. It also helps to explain things that may have been confusing. Before going home, make sure you can do these: I can tell you about my condition. I can tell you what may help ease my breathing. I can tell you what I can do to help avoid passing the infection to others. I can tell you what I will do if I have a fever, chills, or trouble breathing. Where can I learn more? [employer] https://familydoctor.org/condition/ryhtv-fir-djy-flu/ [employer] http://www.lung.org/lymm-czokuf-ogp-diseases/rzin-zkvwkua-iblcvo/influenza/facts -gndet-pnc-lawdia-cold.html Centers for Disease Control and Prevention https://www.cdc.gov/features/rhinoviruses/ [employer] http://kidshealth.org/en/parents/cold.html?ref=search&WT.ac=djf-r-fjyk-en-search -clk Last Reviewed Date 2021-05-05 Consumer Information Use and Disclaimer This generalized information is a limited summary of diagnosis, treatment, and/or medication information. It is not meant to be comprehensive and should be used as a tool to help the user understand and/or assess potential diagnostic and treatment options. It does NOT include all information about conditions, treatments, medications, side effects, or risks that may apply to a specific patient. Itis not intended to be medical advice or a substitute for the medical advice, diagnosis, or treatment of a health care provider based on the health care provider's examination and assessment of a patient???s specific and unique circumstances. Patients must speak with a health care provider for complete information about their health, medical questions, and treatment options, including any risks orbenefits regarding use of medications. This information does not endorse any treatments or medications as safe, effective, or approved for treating a specific patient. [employer] and its affiliates disclaim any warranty or liability relating to this information or the use thereof. The use of this information is governed by the Terms of Use, available at https://www.Poken.Quidsi/en/know/rzxzbcch-munxdmtdnyypz-vbltj Copyright Copyright ?? 2022 [employer] and its affiliates and/or licensors. All rights reserved. documented in this encounter Progress Notes * Kendall Rousseau PA - 12/25/2024 5:45 PM EST Subjective Chief Complaint/HPI: Danica Haro is a 24 y.o. female patient presents with cough congestion, chest tightness, rhinorrhea, wheezing and chills for approximately 2 days. Patient has been taking dsfi-tle-evpeqnn medication with improvement. She denies fever, chest pain or shortness for breath. Of note patient was seen here on 12/02 by me and diagnosed with COVID-19. She reports those symptoms completely resolved. She denies any sick contacts. The following portions of the patient's history were reviewed and updated as appropriate: allergies, current medications, past family history, past medical history, past social history, past surgicalhistory and problem list. See Epic history tabs. Review of Systems Pertinent items are noted in HPI. Past Medical History: Patient Active Problem List Diagnosis COVID-19 Fever, unspecified fever cause Acute cough Past Surgical History: Past Surgical History: Procedure Laterality Date NO PAST SURGERIES Medications: Current Outpatient Medications Medication Sig ARIPiprazole (ABILIFY) 10 mg tablet Take 1 tablet (10 mg total) by mouth at bedtime. benztropine (COGENTIN) 0.5 mg tablet Take 1 tablet (0.5 mg total) by mouth every 12 (twelve) hours. ferrous sulfate (FEOSOL) 325 mg (65 mg iron) tablet Take 1 tablet (325 mg total) by mouth Every other day. gabapentin (NEURONTIN) 300 mg capsule Take 1 capsule (300 mg total) by mouth at bedtime. prazosin (MINIPRESS) 1 mg capsule sertraline (ZOLOFT) 50 mg tablet Take 1 tablet (50 mg total) by mouth daily. tretinoin (RETIN-A) 0.025 % cream APPLY PEA-SIZED AMOUNT TO FACE AT BEDTIME , START EVERY OTHER NIGHT AND INCREASE TOLERATED albuterol sulfate 90 mcg/actuation HFA aerosol inhaler Inhale 2 puffs into the lungs every 6 (six) hours as needed for wheezing. benzonatate (TESSALON) 200 mg capsule Take 1 capsule (200 mg total) by mouth 3 (three) times daily as needed for cough for up to 5 days. No current facility-administered medications for this visit. Allergies: Allergies Allergen Reactions Environmental Allergies Congestion Social History: Social History Socioeconomic History Marital status: Unknown Spouse name: Not on file Number of children: Not on file Years of education: Not on file Highest education level: Not on file Occupational History Not on file Tobacco Use Smoking status: Never Smokeless tobacco: Never Vaping Use Vaping status: Every Day Substance and Sexual Activity Alcohol use: Never Drug use: Never Sexual activity: Not on file Other Topics Concern Not on file Social History Narrative Not on file Social Drivers of Health Financial Resource Strain: Not on File (02/09/2022) Received from [facility] Financial Resource Strain Financial Resource Strain: 0 Food Insecurity: Not on File (08/22/2024) Received from [facility] Food Insecurity Food: 0 Transportation Needs: Not on File (02/09/2022) Received from [facility] Transportation Needs Transportation: 0 Physical Activity: Not on File (02/09/2022) [facility] Physical Activity Physical Activity: 0 Stress: Not on File (02/09/2022) Received from [facility] Stress Stress: 0 Social Connections: Not on File (08/09/2024) Received from [facility] Social Connections Connectedness: 0 Intimate Partner Violence: Not on file Housing Stability: Not on File (02/09/2022) Received from [facility] Housing Stability Housin Objective BP 118/79 Pulse 69 Temp 97.4 ??F (36.3 ??C) Resp 20 Ht 5' 8 (1.727 m) Wt 113.4 kg LMP 12/24/2024 SpO2 95% BMI 38.01 kg/m?? General appearance: no acute distress, appears to be well nourished, normal hygiene, patient responds normally to environment, patient appears non toxic. Head: normocephalic, without obvious abnormality, atraumatic Skin: Skin color, texture is normal. No rashes or lesions Eyes: PERRL, EOMS intact, onjunctivae/corneas clear Nose: Nares normal. Septum midline. Mucosa normal. Throat: Normal, no erythema or exudates appreciated, uvula midline. Moist oral mucosa. Necksupple, symmetrical, trachea midline, symmetric, FROM Chest/Pulm: Normal appearing chest, normal respiratory effort, CTAB Heart: RRR, no murmur, click, rub or gallop Abdomen: BS normal all 4 quadrants. Abdomen soft and NTTP, no CVA TTP MSK: extremities normal, warm and well-perfused; no cyanosis, clubbing, or edema Neuro: Alert, oriented, normal speech, normal gait, Psych: Normal behavior, normal mood, normal affect Radiology: No results found. Results for orders placed or performed in visit on 12/25/24 POCT SARS COV-2 (COVID-19) PCR/Influenza A+B (In-Clinic) Result Value Ref Range POC SARS-CoV-2 (COVID-19) PCR Not Detected Not Detected POC Influenza A Not Detected Not Detected POC Influenza B Not Detected Not Detected POC Kit Lot Number [id number] POC Expiration Date 04/26/2026 Assessment & Plan 1. Acute cough (Primary) - POCT SARS COV-2 (COVID-19) PCR/Influenza A+B (In-Clinic) - benzonatate (TESSALON) 200 mg capsule; Take 1 capsule (200 mg total) by mouth 3 (three) times daily as needed for cough for up to 5 days. Dispense: 15 capsule; Refill: 0 - albuterol sulfate 90 mcg/actuation HFA aerosol inhaler; Inhale 2 puffs into the lungs every 6 (six) hours as needed for wheezing. Dispense: 18 g; Refill: 0 - fluticasone propionate (FLONASE) 50 mcg/actuation nasal spray; Use 2 sprays in each nostril daily. Dispense: 16 g; Refill: 0 MDM: Patient presented with flu-like symptoms. Rapid COVID and flu was negative. Prescribed benzonatate, Flonase and albuterol for patient's symptoms. Patient has no history of asthma but has needed albuterol inhaler in the past with respiratory infections. -Based on my history, physical exam and diagnostic evaluation, the patient exhibits signs and symptoms consistent with viral illness and noninfectious conditions suspected. Doubt Pneumonia, Meningitis, or sepsis. -Discussed reasons as to why prescription antibiotics are not indicated at this time. -Oatd-fen-hnugcqs medications were discussed with the patient and the patient was provided dosing instructions. -The patient will be discharged with instructions should they develop difficulty breathing, new or persistent fevers, not tolerating food or fluids, respiratory distress, or new symptoms to go to [facility] emergency department immediately for prompt evaluation to which the patient was able to verbalize understanding. I encouraged close follow-up with their primary care physician for a repeat exa m. Discharge Instructions: Thank you for choosing [facility] today! Diagnosis: Acute cough Benzonatate, Flonase and albuterol were sent to your pharmacy use as directed Returned to the clinic or follow up with your primary doctor in 1 week if no improvement. -Your vital signs were reviewed. -We have discussed your assessment and plan and all questions have been answered. -Discharge information provided. Please review all provided printouts. -Urgent Care is not a substitute for ongoing care with a primary care provider. Please follow up with your primary care provider for continuing symptoms. If you do not have a primary doctor please contact that [facility] at -If you experience worsening or severe symptoms go to the nearest emergency department immediately for evaluation. After Visit Summary (AVS) provided to patient: Included information on causes, treatment and clinical course of cough All patient/parent questions answered We'll see the patient back in urgent care on an as-needed basis, reevaluate, and proceed appropriately. Please call with questions, concerns, or if you are not improving. documented in this encounter Plan of Treatment Not on file documented as of this encounter Procedures Procedure Name Priority Date/Time Associated Diagnosis Comments POCT SARS COV-2 (COVID-19) PCR/INFLUENZA A+B ([facility]) Routine 12/25/2024 6:57 PM EST Acute cough documented in this encounter Results * POCT SARS COV-2 (COVID-19) PCR/Influenza A+B (In-Clinic) (12/25/2024 6:57 PM EST) POC SARS-CoV-2 (COVID-19) PCR Not Detected Not Detected POC Influenza A Not Detected Not Detected POC Influenza B Not Detected Not Detected POC Kit Lot Number [id number] POC Expiration Date 04/26/2026 Nasal Swab 12/25/2024 6:57 PM EST Kendall KASPER POINT OF CARE ORDERS W/FUTURE F inal Result documented in this encounter Visit Diagnoses Diagnosis Acute cough- Primary documented in this encounter Care Teams Vocational Instructor Relationship Specialty Start Date End Date Pcp, Does Not Have A PCP - General 12/02/24 documented as of this encounter
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
--- OUTSIDE RECORDS SUMMARY | 2025-01-20 12:28 | XMS_ITS | Data Portability ---
Author Organization [place] - [facility], [facility] Address [address] [facility] [id number] [place] [address] Care Team Providers Care Infection Control Preventionist Name Role Phone [email or web address] Primary Care Provider Assessment No assessment recorded. Plan of Treatment Reminders Order Date Submit Date Provider Last Modified By Organization Details Last Modified Time Details Appointments None recorded. Lab SARS CoV 2 RNA (COVID-19), QL, film coater-PCR, respiratory specimen 2020 021 [facility], [address] [place] [address], [id number] 07:21:05 toxicology screen, urine 2020 021 [email or web address] In-Office Order, Internal Use Only DO Not Attach Compendium DO Not Attach Compendium, Do Not Delete/merge, [id number] 09:38:35 SARS CoV 2 RNA (COVID-19), QL, film coater-PCR, respiratory specimen 2020 021 [facility], [address] [place] [address], [id number] 08:21:39 toxicology screen, urine 2020 021 [email or web address] In-Office Order, Internal Use Only DO Not Attach Compendium DO Not Attach Compendium, Do Not Delete/merge, [id number] 12:40:38 Referral None recorded. Procedures None recorded. Surgeries None recorded. Imaging None recorded. Medication Orders Loestrin Fe 12/16 (28-Day) 1 mg-20 mcg (21)/75 mg (7) tablet 2020 021 [id number], [address], [place], [address], 15:11:06 Patient TargetsNo targets recorded. Patient Instructions Encounter Date Encounter Id Patient Instructions Last Modified By Organization Details Last Modified Time 04/14/2021 [id number] [facility] screening completed and reviewed with patient. Negative findings. [email or web address] Not available 04/14/2021 15:36:20 Reason for Referral None Reported. Results Created Date Observation Date Name Description Value Unit Range Abnormal Flag Note LastModifiedBy Organization Detail LastModifiedTime 02/20/20 21 02/23/2021 toxic ology scree n, urine Marijuana (THC) negati ve Not Available In-Office Order Internal Use Only DO Not Attach Compendium DO Not Attach Compendium, Do Not Delete/merge, [id number] 02/19/2021 13:14:18 02/20/20 21 02/23/2021 toxic ology scree n, urine Cocaine (BARNEY 300) negati ve Not Available In-Office Order Internal Use Only DO Not Attach Compendium DO Not Attach Compendium, Do Not Delete/merge, [id number] 02/19/2021 13:14:18 02/20/20 21 02/23/2021 toxic ology scree n, urine Opiates (MOP) negati ve Not Available In-Office Order Internal Use Only DO Not Attach Compendium DO Not Attach Compendium, Do Not Delete/merge, [id number] 02/19/2021 13:14:18 02/20/20 21 02/23/2021 toxic ology scree n, urine Amphetamine (AMP) negati ve Not Available In-Office Order Internal Use Only DO Not Attach Compendium DO Not Attach Compendium, Do Not Delete/merge, [id number] 02/19/2021 13:14:18 02/20/20 21 02/23/2021 toxic ology scree n, urine Methamphetam ine (MET) negati ve Not Available In-Office Order Internal Use Only DO Not Attach Compendium DO Not Attach Compendium, Do Not Delete/merge, [id number] 02/19/2021 13:14:18 02/20/20 21 02/23/2021 toxic ology scree n, urine Barbiturates (BAR) negati ve Not Available In-Office Order Internal Use Only DO Not Attach Compendium DO Not Attach Compendium, Do Not Delete/merge, [id number] 02/19/2021 13:14:18 02/20/20 21 02/23/2021 toxic ology scree n, urine Benzodiazepi dang (BZO) negati ve Not Available In-Office Order Internal Use Only DO Not Attach Compendium DO Not Attach Compendium, Do Not Delete/merge, [id number] 02/19/2021 13:14:18 02/20/20 21 02/23/2021 toxic ology scree n, urine Methylenedio xymethamphet amine (MDMA ? Ecstasy) negati ve Not Available In-Office Order Internal Use Only DO Not Attach Compendium DO Not Attach Compendium, Do Not Delete/merge, [id number] 02/19/2021 13:14:18 02/20/20 21 02/23/2021 toxic ology scree n, urine Methadone (MTD) negati ve Not Available In-Office Order Internal Use Only DO Not Attach Compendium DO Not Attach Compendium, Do Not Delete/merge, 02/19/2021 13:14:18 02/20/20 21 02/23/2021 toxic ology scree n, urine Oxycodone (OXY) negati ve Not Available In-Office Order Internal Use Only DO Not Attach Compendium DO Not Attach Compendium, Do Not Delete/merge, [id number] 02/19/2021 13:14:18 02/20/20 21 02/23/2021 toxic ology scree n, urine Phencyclidin e (PCP) negati ve Not Available In-Office Order Internal Use Only DO Not Attach Compendium DO Not Attach Compendium, Do Not Delete/merge, [id number] 02/19/2021 13:14:18 02/20/20 21 02/23/2021 toxic ology scree n, urine Tricyclic Antidepressa nts (TCA) positi ve Not Available In-Office Order Internal Use Only DO Not Attach Compendium DO Not Attach Compendium, Do Not Delete/merge, [id number] 02/19/2021 13:14:18 01/27/20 21 01/28/2021 cp 69442 7 benzodiazepi dang NEGATI VE NG/mL <100 normal Not Available [facility] [address], [place], [address], 01/28/2021 04:08:53 01/27/20 21 01/28/2021 cp 78808 7 cocaine metabolite NEGATI VE NG/mL <150 normal Not Available [facility] [address], [place], [address], 01/28/2021 04:08:53 01/27/20 21 01/28/2021 cp 20716 7 opiates NEGATI VE NG/mL <100 normal Not Available [facility] [address], [place], [address], 01/28/2021 04:08:53 01/27/20 21 01/28/2021 cp 73058 7 oxycodone NEGATI VE NG/mL <100 normal Not Available [facility] [address], [place], [address], 01/28/2021 04:08:53 01/27/20 21 01/28/2021 cp [id number] 7 comment See Note 1 Not Available [facility] [address], [place], [address], 01/28/2021 04:08:53 01/27/20 21 01/28/2021 cp 67268 7 amphetamines NEGATI VE NG/mL <500 normal Not Available [facility] [address], [place], [address], 01/28/2021 04:08:53 01/27/20 21 01/28/2021 cp 97318 7 comment See Note 2 Not Available [facility] [address] [place], [place], [address], 01/28/2021 04:08:53 01/27/20 21 01/28/2021 cp 18471 7 barbiturates NEGATI VE NG/mL <300 normal Not Available [facility] [place] [facility] [address] [place], [place], [address], 01/28/2021 04:08:53 01/27/20 21 01/28/2021 cp 04761 7 comment See Note 2 Not Available [facility] [place] [facility] [address] [place], [place], [address], 01/28/2021 04:08:53 01/27/20 21 01/28/2021 cp 93102 7 marijuana metabolite 20 NEGATI VE NG/mL <20 normal Not Available [facility] [place] [facility] [address] [place], [place], [address], 01/28/2021 04:08:53 01/27/20 21 01/28/2021 cp [id number] 7 comment See Note 2 Note 1 This drug testi ng is for medic al treat ment only. The resul ts are presu mptiv e; based only on klever jordan ds, and they have not been confi rmed by a defin itive methnoah d. Phuong sis was perfo rmed as non-f orens ic testi ng and these resul ts shoul d be used only by healt hcare provi ders to rende r diagn osis or treat ment, or to monit or progr ess of medic al condi tions . For gaye tance with inter preti ng these drug resul ts, pleas e conta ct a [facility] : [phone] ( [phone] ), M-F, 8am-6 pm EST. Note 2 This drug testi ng is for medic al treat ment only. Phuong sis was perfo rmed as non-f orens ic testi ng and these resul ts shoul d be used only by healt hcare provi ders to rende r diagn osis or treat ment, or to monit or progr ess of medic al condi tions . For gaye nath with inter preti ng these drug resul ts, pleas e conta ct a [facility] : [phone] ( [phone] ), M-F, 8am-6 pm EST. Not Available [facility] [place] [facility] [address], [place], [address], 01/28/2021 04:08:53 01/27/20 21 01/26/2021 toxic ology scree n, urine Marijuana (THC) negati ve Not Available In-Office Order Internal Use Only DO Not Attach Compendium DO Not Attach Compendium, Do Not Delete/merge, 01/22/2021 16:00:40 01/27/20 21 01/26/2021 toxic ology scree n, urine Cocaine (BARNEY 300) negati ve Not Available In-Office Order Internal Use Only DO Not Attach Compendium DO Not Attach Compendium, Do Not Delete/merge, 01/22/2021 16:00:40 01/27/20 21 01/26/2021 toxic ology scree n, urine Opiates (MOP) negati ve Not Available In-Office Order Internal Use Only DO Not Attach Compendium DO Not Attach Compendium, Do Not Delete/merge, 01/22/2021 16:00:40 01/27/20 21 01/26/2021 toxic ology scree n, urine Amphetamine (AMP) negati ve Not Available In-Office Order Internal Use Only DO Not Attach Compendium DO Not Attach Compendium, Do Not Delete/merge, 01/22/2021 16:00:40 01/27/20 21 01/26/2021 toxic ology scree n, urine Methamphetam ine (MET) negati ve Not Available In-Office Order Internal Use Only DO Not Attach Compendium DO Not Attach Compendium, Do Not Delete/merge, [id number] 01/22/2021 16:00:40 01/27/20 21 01/26/2021 toxic ology scree n, urine Barbiturates (BAR) negati ve Not Available In-Office Order Internal Use Only DO Not Attach Compendium DO Not Attach Compendium, Do Not Delete/merge, 01/22/2021 16:00:40 01/27/20 21 01/26/2021 toxic ology scree n, urine Benzodiazepi dang (BZO) negati ve Not Available In-Office Order Internal Use Only DO Not Attach Compendium DO Not Attach Compendium, Do Not Delete/merge, 01/22/2021 16:00:40 01/27/20 21 01/26/2021 toxic ology scree n, urine Methylenedio xymethamphet amine (MDMA ? Ecstasy) negati ve Not Available In-Office Order Internal Use Only DO Not Attach Compendium DO Not Attach Compendium, Do Not Delete/merge, 01/22/2021 16:00:40 01/27/20 21 01/26/2021 toxic ology scree n, urine Methadone (MTD) negati ve Not Available In-Office Order Internal Use Only DO Not Attach Compendium DO Not Attach Compendium, Do Not Delete/merge, 01/22/2021 16:00:40 01/27/20 21 01/26/2021 toxic ology scree n, urine Oxycodone (OXY) negati ve Not Available In-Office Order Internal Use Only DO Not Attach Compendium DO Not Attach Compendium, Do Not Delete/merge, 01/22/2021 16:00:40 01/27/20 21 01/26/2021 toxic ology scree n, urine Phencyclidin e (PCP) negati ve Not Available In-Office Order Internal Use Only DO Not Attach Compendium DO Not Attach Compendium, Do Not Delete/merge, 01/22/2021 16:00:40 01/27/20 21 01/26/2021 toxic ology scree n, urine Tricyclic Antidepressa nts (TCA) positi ve Not Available In-Office Order Internal Use Only DO Not Attach Compendium DO Not Attach Compendium, Do Not Delete/merge, [id number] 01/22/2021 16:00:40 02/10/20 21 02/09/2021 toxic ology scree n, urine Marijuana (THC) negati ve Not Available In-Office Order Internal Use Only DO Not Attach Compendium DO Not Attach Compendium, Do Not Delete/merge, [id number] 02/08/2021 11:56:16 02/10/20 21 02/09/2021 toxic ology scree n, urine Cocaine (BARNEY 300) negati ve Not Available In-Office Order Internal Use Only DO Not Attach Compendium DO Not Attach Compendium, Do Not Delete/merge, 02/08/2021 11:56:16 02/10/20 21 02/09/2021 toxic ology scree n, urine Opiates (MOP) negati ve Not Available In-Office Order Internal Use Only DO Not Attach Compendium DO Not Attach Compendium, Do Not Delete/merge, 02/08/2021 11:56:16 02/10/20 21 02/09/2021 toxic ology scree n, urine Amphetamine (AMP) negati ve Not Available In-Office Order Internal Use Only DO Not Attach Compendium DO Not Attach Compendium, Do Not Delete/merge, [id number] 02/08/2021 11:56:16 02/10/20 21 02/09/2021 toxic ology scree n, urine Methamphetam ine (MET) negati ve Not Available In-Office Order Internal Use Only DO Not Attach Compendium DO Not Attach Compendium, Do Not Delete/merge, [id number] 02/08/2021 11:56:16 02/10/20 21 02/09/2021 toxic ology scree n, urine Barbiturates (BAR) negati ve Not Available In-Office Order Internal Use Only DO Not Attach Compendium DO Not Attach Compendium, Do Not Delete/merge, [id number] 02/08/2021 11:56:16 02/10/20 21 02/09/2021 toxic ology scree n, urine Benzodiazepi dang (BZO) negati ve Not Available In-Office Order Internal Use Only DO Not Attach Compendium DO Not Attach Compendium, Do Not Delete/merge, [id number] 02/08/2021 11:56:16 02/10/20 21 02/09/2021 toxic ology scree n, urine Methylenedio xymethamphet amine (MDMA ? Ecstasy) negati ve Not Available In-Office Order Internal Use Only DO Not Attach Compendium DO Not Attach Compendium, Do Not Delete/merge, [id number] 02/08/2021 11:56:16 02/10/20 21 02/09/2021 toxic ology scree n, urine Methadone (MTD) negati ve Not Available In-Office Order Internal Use Only DO Not Attach Compendium DO Not Attach Compendium, Do Not Delete/merge, 02/08/2021 11:56:16 02/10/20 21 02/09/2021 toxic ology scree n, urine Oxycodone (OXY) negati ve Not Available In-Office Order Internal Use Only DO Not Attach Compendium DO Not Attach Compendium, Do Not Delete/merge, 02/08/2021 11:56:16 02/10/20 21 02/09/2021 toxic ology scree n, urine Phencyclidin e (PCP) negati ve Not Available In-Office Order Internal Use Only DO Not Attach Compendium DO Not Attach Compendium, Do Not Delete/merge, 02/08/2021 11:56:16 02/10/20 21 02/09/2021 toxic ology scree n, urine Tricyclic Antidepressa nts (TCA) positi ve Not Available In-Office Order Internal Use Only DO Not Attach Compendium DO Not Attach Compendium, Do Not Delete/merge, [id number] 02/08/2021 11:56:16 02/17/20 21 02/16/2021 SARS CoV 2 RNA (COVI D-19) , QL, film coater-P CR, respi rator y speci men sars cov 2 RNA Not detect ed not detect ed A Not Detec veronica (nega tive) test resul t for this test means that SARS- CoV-2 RNA was not prese nt in the speci men above the limit of detec tion. A negat loulou resul t does not rule out the possi bilit y of COVID -19 and shoul d not be used as the sole basis for treat ment or patie nt manag ement decis ions. If COVID -19 is still suspe cted, based on expos ure histo ry toget her with other clini rigo findi ngs, re-te sting shoul d be consi dered in consu ltati on with publi c healt h autho ritie s. Labor atory test resul ts shoul d alway s be consi dered in the [place] of clini rigo obser vatio ns and epide miolo gical data in makin g a final diagn osis and patie nt manag ement decis ions. This test has been autho rized by the FDA under an Emerg ency Use Autho rizat ion (EUA) for use by autho rized labor atori es. Metho dolog y: Real- Time RT PCR Addit ional infor edil moody about COVID -19 can be found on the [facility] rs for Disea se Contr ol and Preve ntion websi te: www.C DC.go v/cor onavi graciela/2 019-n cov/i ndex. html Not Available [facility] [address] [place], [address] 02/17/2021 07:47:18 02/17/20 21 02/16/2021 toxic ology scree n, urine Marijuana (THC) negati ve Not Available In-Office Order Internal Use Only DO Not Attach Compendium DO Not Attach Compendium, Do Not Delete/merge, [id number] 02/16/2021 11:42:38 02/17/20 21 02/16/2021 toxic ology scree n, urine Cocaine (BARNEY 300) negati ve Not Available In-Office Order Internal Use Only DO Not Attach Compendium DO Not Attach Compendium, Do Not Delete/merge, [id number] 02/16/2021 11:42:38 02/17/20 21 02/16/2021 toxic ology scree n, urine Opiates (MOP) negati ve Not Available In-Office Order Internal Use Only DO Not Attach Compendium DO Not Attach Compendium, Do Not Delete/merge, [id number] 02/16/2021 11:42:38 02/17/20 21 02/16/2021 toxic ology scree n, urine Amphetamine (AMP) negati ve Not Available In-Office Order Internal Use Only DO Not Attach Compendium DO Not Attach Compendium, Do Not Delete/merge, 02/16/2021 11:42:38 02/17/20 21 02/16/2021 toxic ology scree n, urine Methamphetam ine (MET) negati ve Not Available In-Office Order Internal Use Only DO Not Attach Compendium DO Not Attach Compendium, Do Not Delete/merge, 02/16/2021 11:42:38 02/17/20 21 02/16/2021 toxic ology scree n, urine Barbiturates (BAR) negati ve Not Available In-Office Order Internal Use Only DO Not Attach Compendium DO Not Attach Compendium, Do Not Delete/merge, 02/16/2021 11:42:38 02/17/20 21 02/16/2021 toxic ology scree n, urine Benzodiazepi dang (BZO) negati ve Not Available In-Office Order Internal Use Only DO Not Attach Compendium DO Not Attach Compendium, Do Not Delete/merge, 02/16/2021 11:42:38 02/17/20 21 02/16/2021 toxic ology scree n, urine Methylenedio xymethamphet amine (MDMA ? Ecstasy) negati ve Not Available In-Office Order Internal Use Only DO Not Attach Compendium DO Not Attach Compendium, Do Not Delete/merge, 02/16/2021 11:42:38 02/17/20 21 02/16/2021 toxic ology scree n, urine Methadone (MTD) negati ve Not Available In-Office Order Internal Use Only DO Not Attach Compendium DO Not Attach Compendium, Do Not Delete/merge, 02/16/2021 11:42:38 02/17/20 21 02/16/2021 toxic ology scree n, urine Oxycodone (OXY) negati ve Not Available In-Office Order Internal Use Only DO Not Attach Compendium DO Not Attach Compendium, Do Not Delete/merge, [id number] 02/16/2021 11:42:38 02/17/20 21 02/16/2021 toxic ology scree n, urine Phencyclidin e (PCP) negati ve Not Available In-Office Order Internal Use Only DO Not Attach Compendium DO Not Attach Compendium, Do Not Delete/merge, [id number] 02/16/2021 11:42:38 02/17/20 21 02/16/2021 toxic ology scree n, urine Tricyclic Antidepressa nts (TCA) positi ve Not Available In-Office Order Internal Use Only DO Not Attach Compendium DO Not Attach Compendium, Do Not Delete/merge, [id number] 02/16/2021 11:42:38 02/24/2002/23/2021 SARS CoV 2 RNA (COVI D-19) , QL, film coater-P CR, respi rator y speci men sars cov 2 RNA Not detect ed not detect ed A Not Detec veronica (nega tive) test resul t for this test means that SARS- CoV-2 RNA was not prese nt in the speci men above the limit of detec tion. A negat loulou resul t does not rule out the possi bilit y of COVID -19 and shoul d not be used as the sole basis for treat ment or patie nt manag ement decis ions. If COVID -19 is still suspe cted, based on expos ure histo ry toget her with other clini rigo findi ngs, re-te sting shoul d be consi dered in consu ltati on with publi c healt h autho ritie s. Labor atory test resul ts shoul d alway s be consi dered in the [place] of clini rigo obser vatio ns and epide miolo gical data in marcelle g a final diagn osis and patie nt manag ement decis ions. This test has been autho rized by the FDA under an Emerg ency Use Autho rizat ion (EUA) for use by autho rized labor atori es. Metho dolog y: Real- Time RT PCR Addit ional infor matio n about COVID -19 can be found on the [facility] rs for Disea se Contr ol and Preve ntion websi te: www.[employer].go v/cor onavi graciela/2 019-n cov/i ndex. html Not Available [facility] [address] [place] [address], [id number] 02/24/2021 08:21:39 03/02/2003/02/2021 SARS CoV 2 RNA (COVI D-19) , QL, film coater-P CR, respi rator y speci men sars cov 2 RNA Not detect ed not detect ed A Not Detec veronica (nega tive) test resul t for this test means that SARS- CoV-2 RNA was not prese nt in the speci men above the limit of detec tion. A negat loulou resul t does not rule out the possi bilit y of COVID -19 and shoul d not be used as the sole basis for treat ment or patie nt manag ement decis ions. If COVID -19 is still suspe cted, based on expos ure histo ry toget her with other clini rigo findi ngs, re-te sting shoul d be consi dered in consu ltati on with publi c healt h autho ritie s. Labor atory test resul ts shoul d alway s be consi dered in the [place] of clini rigo obser vatio ns and epide miolo gical data in makin g a final diagn osis and patie nt manag ement decis ions. This test has been autho rized by the FDA under an Emerg ency Use Autho rizat ion (EUA) for use by autho rized labor atori es. Metho dolog y: Real- Time RT PCR Addit ional infor matio n about COVID -19 can be found on the [facility] rs for Disea se Contr ol and Preve ntion websi te: www.[employer].go v/cor onavi graciela/2 019-n cov/i ndex. html Not Available [facility] [address] [place] [address], [id number] 03/03/2021 07:21:05 04/06/03/02/2021 toxic ology scree n, urine Marijuana (THC) negati ve Not Available In-Office Order Internal Use Only DO Not Attach Compendium DO Not Attach Compendium, Do Not Delete/merge, [id number] 03/02/2021 09:21:05 03/02/2003/02/2021 toxic ology scree n, urine Cocaine (BARNEY 300) negati ve Not Available In-Office Order Internal Use Only DO Not Attach Compendium DO Not Attach Compendium, Do Not Delete/merge, [id number] 03/02/2021 09:21:05 03/02/2003/02/2021 toxic ology scree n, urine Opiates (MOP) negati ve Not Available In-Office Order Internal Use Only DO Not Attach Compendium DO Not Attach Compendium, Do Not Delete/merge, [id number] 03/02/2021 09:21:05 03/02/2003/02/2021 toxic ology scree n, urine Amphetamine (AMP) negati ve Not Available In-Office Order Internal Use Only DO Not Attach Compendium DO Not Attach Compendium, Do Not Delete/merge, [id number] 03/02/2021 09:21:05 03/02/2003/02/2021 toxic ology scree n, urine Methamphetam ine (MET) negati ve Not Available In-Office Order Internal Use Only DO Not Attach Compendium DO Not Attach Compendium, Do Not Delete/merge, [id number] 03/02/2021 09:21:05 03/02/2003/02/2021 toxic ology scree n, urine Barbiturates (BAR) negati ve Not Available In-Office Order Internal Use Only DO Not Attach Compendium DO Not Attach Compendium, Do Not Delete/merge, 03/02/2021 09:21:05 03/02/2003/02/2021 toxic ology scree n, urine Benzodiazepi dang (BZO) negati ve Not Available In-Office Order Internal Use Only DO Not Attach Compendium DO Not Attach Compendium, Do Not Delete/merge, 03/02/2021 09:21:05 03/02/2003/02/2021 toxic ology scree n, urine Methylenedio xymethamphet amine (MDMA ? Ecstasy) negati ve Not Available In-Office Order Internal Use Only DO Not Attach Compendium DO Not Attach Compendium, Do Not Delete/merge, [id number] 03/02/2021 09:21:05 03/02/20 21 03/02/2021 toxic ology scree n, urine Methadone (MTD) negati ve Not Available In-Office Order Internal Use Only DO Not Attach Compendium DO Not Attach Compendium, Do Not Delete/merge, [id number] 03/02/2021 09:21:05 03/02/20 21 03/02/2021 toxic ology scree n, urine Oxycodone (OXY) negati ve Not Available In-Office Order Internal Use Only DO Not Attach Compendium DO Not Attach Compendium, Do Not Delete/merge, [id number] 03/02/2021 09:21:05 03/02/20 21 03/02/2021 toxic ology scree n, urine Phencyclidin e (PCP) negati ve Not Available In-Office Order Internal Use Only DO Not Attach Compendium DO Not Attach Compendium, Do Not Delete/merge, [id number] 03/02/2021 09:21:05 03/02/20 21 03/02/2021 toxic ology scree n, urine Tricyclic Antidepressa nts (TCA) positi ve Not Available In-Office Order Internal Use Only DO Not Attach Compendium DO Not Attach Compendium, Do Not Delete/merge, [id number] 03/02/2021 09:21:05 02/17/20 21 02/16/2021 US, obste tric, [facility] [address], [place], [address], 02/16/2021 15:37:18 Result Notes None recorded. Problems Name Problem SNOMED Code Status Onset Date Resolution Date Notes Provider Name and Address Organization Details Recorded Time Depressi ve disorder 19764419 Active 2017 also anxiety- -sees psychiat rist/on Lexapro. Level 2 anatomy USN ordered. TBF 02/23/21: TCA positive (on antidepr essants) . kt Nerissa bullard, [facility] 1 12:42:50 Anxiety 10966440 Active 2017 Jina bullard, [facility] 8 14:35:46 Drug addict 494435152 Active 2017 Jina bullard, [facility] 8 14:35:58 Pregnanc y 70988995 Completed 201903/08/2021 Nerissa bullard, [facility] 1 12:43:02 Long-ter m current use of antipsyc hotic medicati on [id number] Completed Currentl y using Qeutiapi ne and Prazosin . Level 2 USN schedule d. TBF LEVEL II USN wnl. Nerissa bullard, [facility] 12:42:50 Heroin dependen ce 134770943 Completed Hx of heroin use - not currentl y using. QTOX at [facility]. TBF 02/23/21: Opiod negative . [facility] Nerissa bullard, [facility] 12:42:50 Depressi ve disorder 09377032 Completed 2017 also anxiety- -sees psychiat rist/on Lexapro. Level 2 anatomy USN ordered. TBF 02/23/21: TCA positive (on antidepr essants) . ktb Nerissa bullard, [facility] 12:42:50 Group B Streptoc occus carrier [id number] 03 Completed GBS in urine. needs tx in labor. TBF Nerissa bullard, [facility] 12:42:50 Hepatiti s C carrier [id number] Completed Hep C + with IPG labs. Check viral load. GI referral . TBF Negative Hep A & CMP, 01/17. C[facility] 12:[facility]:50 Benzodia zepine dependen ce [id number] Completed Initial QTOX with benzo +. Review at next OB visit. Confirm meds. WIll need serial QTOX. TBF 02/23/21: Benzo negative . ktb Nerissa Rodesi null, [place] - [facility] 12:42:50 Cannabis abuse [id number] Completed Qtox at 12 wks + for MJ, else negative --to review w/ pt at next visit. CSD 10/01/20: MJ+: REVIEWED AT LENGTH and she admits to smoking recreati onally - I encour ed her to QUIT. Will retest q/visit. ktb 10/01/20: MJ+. ktb 02/23/21: MJ negative . ktb Nerissa Jessica null, [place] - [facility] 12:42:50 Problem Notes None recorded. Procedures Surgical History Date Name Laterality Status Provider Name and Address Organization Details Recorded Time 04/14/2021 [id number]-ELDT (0503F) completed SAM TEE DO [address] [facility], [address] Floor, [place], [address], [facility] 04/14/2021 15:36:26 02/09/2021 Z1X-JVQ completed Maria Teresa Valdez [facility] 02/09/2021 09:24:17 12/07/2020 H0Y-ZTI completed Maria Teresa Valdez [facility] 12/07/2020 08:55:37 11/02/2020 Z3O-KCZ completed Maria Teresa Valdez [facility] 11/02/2020 09:57:04 10/01/2020 M2U-ADJ completed Nerissa Lopez [facility] 09/30/2020 13:59:03 08/06/2020 P4P-OB (0500F) completed SAM TEE DO [address] [facility], [address] Floor, [place], [address], [facility] 08/06/2020 12:16:29 11/16/2018 G2U-WBLJS completed ALMA DELIA Geneva MCPHERSON APRN [address] [facility], [address] [place] [address], [place], [address], [place] - [facility] 11/16/2018 10:52:07 11/16/2018 Z8A-RZT completed ALMA DELIA Geneva MCPHERSON APRN [address] [facility], [address] [place] [address], [place], [address], [place] - [facility] 11/16/2018 10:52:05 Imaging Results Imaging Date Name Status LastModified by Organiz ation Details LastModified Time 02/16/2021 US, obstetric, follow-up completed [facility] [address] [place], [address], 02/16/2021 15:37:18 Procedure Notes None recorded. Medical Equipment None Reported. Allergies No known drug allergies Medications Name Sig Start Date Stop Date Status Note LastModified by Organization Details LastModified Time amoxicillin 500 mg capsule Take 1 capsule every 12 hours by oral route for 7 days. 10/01 completed Not Available Not Available Not Available oxcarbazepi ne 150 mg tablet 08/06 completed Not Available Not Available Not Available clonidine HCl 0.1 mg tablet 08/06 completed Not Available Not Available Not Available clindamycin HCl 300 mg capsule 11/16 completed Not Available Not Available Not Available trazodone 50 mg tablet 08/06 completed Not Available Not Available Not Available azithromyci n 250 mg tablet 12/20 completed Not Available Not Available Not Available prazosin 1 mg capsule TAKE 1 CAPSULE BY MOUTH AT BEDTIME active Not Available Not Available No t Available naltrexone 50 mg tablet 08/06 completed Not Available Not Available Not Available ondansetron HCl 4 mg tablet 08/06 completed Not Available Not Available Not Available ceftriaxone 250 mg solution for injection Take 250 mg by injection route. 08/06 completed Not Available Not Available Not Available quetiapine 200 mg tablet 08/06 completed Not Available Not Available Not Available hydroxyzine pamoate 50 mg capsule 08/06 completed Not Available Not Available Not Available metronidazo le 500 mg tablet Take 1 tablet twice a day by oral route for 14 days. 08/06 completed Not Available Not Available Not Available quetiapine 100 mg tablet TAKE 1 TABLET BY MOUTH EVERYDAY AT BEDTIME 04/14 completed Not Available Not Available Not Available triamcinolo ne acetonide 0.1 % topical cream 12/20 completed Not Available Not Available Not Available lamotrigine 25 mg tablet 08/06 completed Not Available Not Available Not Available baclofen 20 mg tablet 08/06 completed Not Available Not Available Not Available hydrocortis one 1 % topical cream APPLY TO AFFECTED AREA 3 TIMES A DAY 04/14 completed Not Available Not Available Not Available cephalexin 500 mg capsule 08/06 completed Not Available Not Available Not Available mirtazapine 30 mg tablet 08/06 completed Not Available Not Available Not Available fluoxetine 20 mg tablet 12/20 completed Not Available Not Available Not Available triamcinolo ne acetonide 0.1 % topical ointment 08/06 completed Not Available Not Available Not Available buspirone 10 mg tablet active Not Available Not Available Not Available mupirocin 2 % topical ointment 08/06 completed Not Available Not Available Not Available ipratropium bromide 42 mcg (0.06 %) nasal spray 08/06 completed Not Available Not Available Not Available nifedipine ER 60 mg tablet,exte nded release Take 1 tablet every day by oral route at bedtime. active Not Available Not Available No t Available hydroxyzine HCl 10 mg tablet 12/20 completed Not Available Not Available Not Available doxycycline hyclate 100 mg tablet Take 1 tablet twice a day by oral route for 14 days. 08/06 completed Not Available Not Available Not Available prazosin 2 mg capsule 08/06 completed Not Available Not Available Not Available diazepam 5 mg tablet 12/20 completed Not Available Not Available Not Available amoxicillin 875 mg-potassiu m clavulanate 125 mg tablet 11/16 completed Not Available Not Available Not Available NuvaRing 0.12 mg-0.015 mg/24 hr vaginal Insert 1 vaginal ring every month by vaginal route. 08/06 completed Not Available Not Available Not Available azithromyci n 500 mg tablet 11/16 completed Not Available Not Available Not Available escitalopra m 10 mg tablet 08/06 completed Not Available Not Available Not Available escitalopra m 20 mg tablet TAKE 1 TABLET BY MOUTH EVERY DAY active Not Available Not Available No t Available FE 12/16 (28) 1 mg-20 mcg (21)/75 mg (7) tablet Take 1 tablet every day by oral route. active Not Available Not Available No t Available TriNessa (28) 0.18 mg(7)/0.215 mg(7)/0.25 mg(7)-35 mcg tablet 12/20 completed Not Available Not Available Not Available escitalopra m 5 mg tablet TAKE 1 TABLET BY MOUTH EVERY DAY active Not Available Not Available No t Available nitrofurant oin monohydrate /macrocryst als 100 mg capsule 11/16 completed Not Available Not Available Not Available iron 03/11 completed Not Available Not Available Not Available active Not Available Not Avai lable Not Available Lexapro 25 mg 12/07 completed Not Available Not Available Not Available quetiapine 50 mg tablet TAKE 1 TABLET BY MOUTH EVERYDAY AT BEDTIME 04/14 completed Not Available Not Available Not Available Allergy Relief (cetirizine ) 10 mg tablet TAKE 1 TABLET BY MOUTH EVERY DAY 04/14 completed Not Available Not Available Not Available Vitron-C 65 mg iron-125 mg tablet,na yed release TAKE 1 TABLET BY MOUTH EVERY OTHER DAY 2020 active Not Available Not Available Not Avai lable Zubsolv 5.7 mg-1.4 mg sublingual tablet 08/06 completed Not Available Not Available Not Available Zubsolv 2.9 mg-0.71 mg sublingual tablet 08/06 completed Not Available Not Available Not Available Narcan 4 mg/actuatio n nasal spray 08/06 completed Not Available Not Available Not Available Aczone 7.5 % topical gel with pump 08/06 completed Not Available Not Available Not Available Lillow (28) 0.15 mg-0.03 mg tablet TAKE 1 TABLET BY MOUTH EVERY DAY active Not Available Not Available No t Available Vitals Date Recorded Body height Body weight Systolic blood pressure Diastolic blood pressure Provider Name and Address Organization Details Last Updated DateTime 02/23/2021 171.45 cm 213543.01 62 g 118 mm[Hg] 74 mm[Hg] Paola Lundberg [facility] 02/23/2021 11:29:35 Date Recorded Body weight Body mass index (BMI) Percentile per age and sex Body mass index (BMI) Body height Systolic blood pressure Diastolic blood pressure Systolic blood pressure Diastolic blood pressure Provider Name and Address Organization Details Last Updated DateTime 1 286655. 52264 g 98 % 41.4 kg/m2 171.45 cm 140 mm[Hg] 90 mm[Hg] 134 mm[Hg] 90 mm[Hg] Maria Teresa Valdez [facility] 09:54:59 Date Recorded Body height Body mass index (BMI) Percentile per age and sex Body mass index (BMI) Body weight Systolic blood pressure Diastolic blood pressure Provider Name and Address Organization Details Last Updated DateTime 1 171.45 cm 97 % 36.9 kg/m2 056402. 58 g 128 mm[Hg] 90 mm[Hg] Nika Irvin [facility] 1 15:17:11 Date Recorded Body height Body mass index (BMI) Body mass index (BMI) Percentile per age and sex Body weight Systolic blood pressure Diastolic blood pressure Provider Name and Address Organization Details Last Updated DateTime 1 171.45 cm 36.1 kg/m2 97 % 213235. 61 g 128 mm[Hg] 66 mm[Hg] Nika Irvin [facility] 1 10:14:56 Date Recorded Body height Body mass index (BMI) Body mass index (BMI) Percentile per age and sex Body weight Systolic blood pressure Diastolic blood pressure Provider Name and Address Organization Details Last Updated DateTime 1 171.45 cm 36.9 kg/m2 97 % 867053. 58 g 122 mm[Hg] 68 mm[Hg] Nerissa Lopez [facility] 14:47:09 Social History Question Answer Notes LastModified by Organizat ion Details LastModified Time Tobacco Smoking Status Smoker, Current Status Unknown vapes daily but trying to cut back 08/06/2020 Bianca bullard [facility] 10/01/2020 14:50:43 What Is Your Level Of Alcohol Consumption? None Information not available 10/01/2020 Do You Reside In Or Have You Traveled To An Area Where Ebola Virus Transmission Is Active? No Information not available 10/01/2020 Do You Or Have You Ever Used E-cigarettes Or Vape? Current User Of Electronic Cigarettes Information not available 10/01/2020 Have There Been Any Changes To Your Family Or Social Situation? No Information not available 10/01/2020 Do You Have Any Children? No Information not available 12/25/2018 Does Your Partner Physically Hurt You Or Threaten To Hurt You? No Information not available 08/06/2020 Has Your Partner Forced You To Have Sex Or Perform Sex Acts When You Did Not Want To? No Information not available 08/06/2020 Does Your Partner Insult, Scream At Or Talk Down To You? No Information not available 08/06/2020 Does Your Partner Control You Or Any Part Of Your Life? No Information not available 08/06/2020 Are You Afraid Of Your Partner? No Information not available 08/06/2020 Tobacco Type Electronic Cigarettes/Vap e Information not available 08/06/2020 Drug Use? No Clean From Heroin, Lives In Sober House Information not available 12/20/2017 Drug Abuse To Heroin Information not available 12/25/2018 Do You Feel Safe At Home? Yes Information not available 12/20/2017 What Was The Date Of Your Most Recent Tobacco Screening? 10/01/2020 Vapes Daily But Trying To Cut Back 08/06/2020 [email or web address] Information not available 10/01/2020 Do You Use Protection During Sex? Always Information not available 10/01/2020 Have You Recently Traveled Abroad? No Information not available 08/06/2020 Do You Have Symptoms Associated With Zika Virus (fever, Rash, Joint Pain, Or Conjunctivitis)? No Information not available 10/01/2020 Have You Recently (within The Last 12 Weeks, Or During A Current ) Traveled To Or Lived In A Zika-affected Area? No [email or web address] Information not available 07/31/2020 Sex: Unknown Functional Status Question Answer Note LastModified by Organizat ion Details LastModified Time What is your exercise level? Occasional cbinette Information not available 11/02/2020 Mental Status Question Answer Note LastModified by Organization D etails LastModified Time Do you have difficulty concentrating, remembering or making decisions? No Information no t available 10/01/2020 Family History Relationship Description Onset Age of this Age Resolved Age Notes LastModified by Organization Details LastModified Time Maternal Grandmother Malignant neoplasm of uterus [email or web address] Not available 2017 14:07:37 Maternal Grandmother Cerebrovascu lar accident [email or web address] Not available 14:07:54 Paternal Grandmother Cerebrovascu lar accident [email or web address] Not available 14:07:54 Paternal Grandfather Heart disease [email or web address] Not available 2017 14:08:05 Medical History Condition Response Other N *No Diseases or Conditions N Breast Cancer N Blood clots N Colon cancer N Benign breast disease N Depression Y Lung Disease N Defects or Inherited Disease N Anesthesia Complications N Headaches/Migraines N Have you ever been on isolation N Anxiety Disorder Y HSV N Arthritis N Infertility N Interstitial Cystitis N Abnormal pap N Acid Reflux (GERD) N Cancer N Stroke N Endometriosis N Fibromyalgia N Spina Bifida N HIV N Heart Problems N Sexual Dysfunction N Autoimmune disorder N Kidney or Bladder Problems N Thyroid Problems N GI Problems N Eating Disorder N Anemia N Multiple Sclerosis N Psychiatric Illness N Ovarian Cancer N Diabetes N Blood Transfusions N Bladder disease N History of MRSA N Abnormal Uterine Bleeding N Hyperlipidemia N BrCa positive N Diverticulitis N Abuse/Domestic Violence N Asthma N Hepatitis N Hypertension N Osteoporosis N Thrombophilias N Gynecological History Statement/Question Response Benign Breast Disease N Flow Moderate Date of Last Mammogram Date of LMP 04/13/2021 Breast Biopsy N IPV Screen Done 03/02/2021 [facility] Biopsy N Post Menopausal Bleeding STIs/STDs N PID N Cervical Cancer N History of Endometrial Biopsy? N If Post Menopausal, Age at Menopause Ovarian Cancer N Date of Last Colonoscopy Breast Cancer N Date of last DEXA Bladder Problems N Abnormal Uterine Bleeding N Abnormal Pap Infertility N Breast Ultrasound N Leep N Sexual Orientation heterosexual Duration of Flow (days) 3 Endometriosis N Age at Menarche 11 Age at First Child Fibroids N Uterine Cancer N Frequency of Cycle (Q days) 28 Sexually Active? Y Sexual Problems? N Date of Last Pap Smear Hormone Replacement Therapy Obstetrics History GPAL:G 1 P 1 0 0 1 Type Value Full Term 1 Living 1 Total 1 Immunizations Vaccine Type Date Status Note Provider Lucius joaquin and Address Organization Details Recorded Time Influenza, split virus, quadrivalent, preservative 0 completed Maria Teresa Valdez null, [place] - [facility] 11/02/2020 09:56:09 Tdap 1 completed Maria Teresa bullard, [place] - [facility] 01/04/2021 09:56:42 Past Encounters Encounter ID Performer Location Encounter Start Date Encounter Closed Date Diagnosis/Indication Diagnosis SNOMED-CT Code Diagnosis ICD10 Code Diagnosis Note [id number] ALMA DELIA MCPHERSON APRN [facility] [address] [place] [address] 12/20/2017 14:00:45 12/21/2017 11:52:35 Venereal disease screening 481459261 Z11.3 Pt diagnosed w/chlamydi a three weeks ago/needs KAIT Gynecologi c examination 18565593 Z01.419 Well woman exam Rev SBE Pap when 21 On OC's for contracept ion--has med interactio n--cannot use any hormonal contracept ion w/oxcarbaz epine--adv ised can only do IUD for effective contracept ion. Pt has appt w/psychiat rist to see if meds can be changed--d isc Topamax--a s long as on less than or equal to 200mg/d--w ould be effective w/Nuvaring ; pt advised she needs to use alternativ e contracept ion while on oxcarbazep ine Will check KAIT for chlamydia- -order given (pt unable to void at visit) Disc diet/exerc ise F/up 1 year/prn Contraception care 10372 9438 Z30.40 Pt on Tri-Sammie- -wants to change contracept ion Disc all options: Patch/Ring /Depo/LARC Wants to try Nuvaring Advised pt that oxcarbazep ine interacts with all forms of hormonal contracept ion--ok to go on Nuvaring for cycle control but needs to use backup to prevent for now Pt to advise Consent signed [id number] LARISSA CHICAS DO [facility] [address] [place] [address] 05/10/2018 14:28:26 05/11/2018 16:07:57 Contraception care [id number] Z30.40 Patient due for removal of Nuvaring this week, tried to find this 3 days ago but unable to find Nuvaring in order to remove it. Has not had menses since last month when she removed her last Nuvaring, no bleeding since that time. Negative test today. With exam, normal speculum and bimanual exam, no Nuvaring present. Patient advised that this may have fallen out, although as she has not had a bleed since her last period it is more likely that she may have forgotten to put in a new ring this past month. Patient has hx of oligomenor rosalinda when not using Nuvaring. Last intercours e two weeks ago, advised if no period in the next week to call for [facility]. [id number] ALMA DELIA MCPHERSON APRN [facility] [address] [place] [address] 11/16/2018 10:07:16 11/16/2018 11:52:48 Vaginitis 65755358 N76.0 Venereal d isease screening 641931329 Z11.3 Pain in pelvis 39137994 R10.2 Pt w/pelvic pain x 6+ months Currently using Nuvaring for contracept ion--is occ sexually active with a friend & uses condoms too Hx substance abuse--sta claudia she is not using though she appears somewhat manic today Scant secretions in vagina--Af firm done No CMT--GC/Ch bueno done + fullness RLQ Will check US Total visit length 30 minutes of which at least 25 minutes was spent in face to face counseling and coordinati on of care. All questions were answered to the patient's satisfacti on. [id number] LARISSA CHICAS DO [facility] [place] [address] 12/28/2018 10:34:30 12/28/2018 15:03:33 Contraception care 981384482 Z30.40 Patient wishes to continue Nuvaring, risks/bene fits/alter natives reviewed. Consent signed. Will prescribe refills x one year. 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 Pap deferred due to patient age. GC/CL and Affirm sent today. reviewed self breast exam. CA Risk Assessment reviewed at length - normal risk. Return for annual in one year. Pain in pelvis 98906134 R10.2 Patient evaluated at office visit in Oct 2018 for c/o 6 months pelvic pain. GC/CL negative at that time. Pelvic USN 11/29/18 showed normal uterus and ovaries. Patient today states that pelvic pain persists, vague with details but states that she has both vaginal and deep pain with intercours e, pain with menses and sometimes intermitte nt random cramping as well. Difficult to elicit full story, patient appears distracted and with pressured speech during our encounter. Denies drug use currently. With exam today, + CMT and uterine tenderness noted with exam, no discharge noted. Will recheck Affirm, GC/CL. Given exam findings and c/o continued pelvic pain will treat for presumed PID with injection of Ceftriaxon e then doxycyclin e and flagyl BID x 2 weeks. Also reviewed possibilit y of endometrio sis as possible cause of dyspareuni a and dysmenorrh ea if this should persist following antibiotic treatment. Discussed option of using Nuvaring or OCPs continuous ly as well as DMPA, patient declines all at this time, planning to continue monthly Nuvaring use at this time. Patient advised to closely monitor symptosm, if she notices worsening symptoms including N/V, fever, chills etc advised to call. Blood in urine 50117055 R31.9 Patient notes intermitte nt dysuria and frequency. Will send UA, culture as well as GC/CL for evaluation . Vaginitis 36653067 N76.0 Female pel [place] inflammatory disease 097532282 N73.9 See pelvic pain below Venereal d isease screening 501931285 Z11.3 [id number] SAM TEE DO [facility] [address] [place] [address] 08/06/2020 10:02:18 08/10/2020 12:29:19 Routine care 995156302 Z34.90 Patient in the office for her initial OB visit. Doing well so far. Reviewed early issues and discussed precaution s including cramping, bleeding, discharge, morning sickness. Denies headache, fever, chills, cp, sob, bleeding, severe N/V. Occasional cramping. Reviewed [facility] practice policies and procedures . 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 Reviewed all available first trimester genetic screening and 2nd trimester screening. Reviewed initial viability USN. NT USN scheduled. Age 20 - no pap today. Reviewed meds - will have NT and level 2 anatomy USN due to medication exposure. Not currently using heroin. Support provided. QTOX at lab as none in office. All questions answered. Will RTO in 4 weeks for OB visit, follow up all labs and testing. TBF Gestation period, 8 weeks 04302505 Z3A.08 Depression screening 171 545271 Z13.31 Negative depression screening at [facility]. [id number] DANNA CASTELLANOS MD [facility] [address] [place] [address] 09/03/2020 11:12:40 09/04/2020 12:02:54 Gestation period, 12 weeks 70717886 Z3A.12 Routine an tenatal care 413858169 Z34.01 Pt is still waiting for dr to call regarding + hep c results. Pt has some n/vergara, no swelling or vomiting. 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 Reviewed all results to date. Pt is awaiting call for GI eval, we will again try to contact GI office today. Pt aware of scheduled NT USN, intends to complete 1st tri screening today. RTO 4 wks History of drug abuse 37 5204437 F19.11 [id number] AMERICA CANSECO, DO [facility] [address] [place] [address] 10/01/2020 14:50:31 10/05/2020 13:33:43 Routine care 905876826 Z34.92 Urinary symptoms 9633303 08 R39.9 Gestation period, 16 weeks 31716145 Z3A.16 [id number] LARISSA CHICAS DO [facility] [address] [place] [address] 11/02/2020 09:44:04 11/04/2020 16:11:40 Routine care 380963598 Z34.92 Doing well, no complaints . s/p flu vaccine. Reviewed negative MSAFP. No UTI noted with urine culture. Normal level II USN other than echogenic focus, patient s/p normal Panorama results. QTOX today in office negative for MJ (+ TCA). Patient had visit with GI ~ one month ago, was advised to go for labs but has not yet done this, planning to go today. [id number] DANNA CASTELLANOS MD [facility] [address] [facility] [place] [address] 12/07/2020 08:44:26 12/08/2020 08:47:50 Normal 87321735 Z34.03 Z34.83 Z34.93 Headaches: Occ Nausea: No Vomiting: No movement: Yes Contractio ns: No Pt aware needs to go for 28 week bld work due 12/23/2020 at [employer] [facility] Pt given info regarding cord bld and Tdap. Qtoxo done in office today--+ for TCA; will check confirmato ry testing. Pt notes + GFM & rare cramping. Pt states she completed labs for GI 3 d ago, awaiting results; pt states she is to F/U after to address Hep C. Reviewed results to date & upcoming 3rd tri labs. RTO 4 wks Depression screening 171 772048 Z13.32 Completed, results negative Routine an tenatal care 478242924 Z34.02 Gestation period, 25 weeks 29557044 Z3A.25 [id number] DANNA CASTELLANOS MD [facility] [address] [facility] [place] [address] 01/04/2021 09:09:22 01/04/2021 14:02:55 Routine care 095272922 Z34.02 Headaches: No Nausea: No Vomiting: No movement: Yes Contractio ns: No Qtoxo in office today. Tdap given today Pt denies c/o, notes + FM & no ctxns. Reviewed results to date. Pt awaiting review o f recent lab eval w/ GI. Office qtox negative save for TCA. RTO 3 Gestation period, 29 weeks 57323867 Z3A.29 [id number] [facility] [address] [place] [address] 01/26/2021 10:30:56 01/27/2021 08:38:56 Routine care 629555219 Z34.90 Routine OB visit. Size = date. FHR reassuring . Denies headache, fever, chills, cp, sob. No regular cramping or contractio ns. Sun, bug, Zika, travel precaution s all reviewed. COVID, PTL, and FM precaution s all discussed. EFW USN at 36 wga scheduled. QTOX today. GBS +, no culture needed at 36 wga. RTO in 2 weeks. TBF Gestation period, 32 weeks [id number] Z3A.32 [id number] SAM TEE , DO [facility] [address] [place] [address] 02/09/2021 09:16:45 02/10/2021 12:04:59 Routine care [id number] Z34.90 Routine OB visit. Size = date. FHR reassuring . Denies headache, fever, chills, cp, sob. No regular cramping or contractio ns. Sun, bug, Zika, travel precaution s all reviewed. COVID, PTL, and FM precaution s all discussed. EFW USN upcoming. GBS +, no culture at 36 wga needed. RTO in 1 week. TBF Gestation period, 34 weeks [id number] Z3A.34 [id number] MICHELLE SOLO MD G5 [address] [place] [address] 02/16/2021 14:21:10 02/18/2021 13:34:55 Viral screening 241121563 Z11.59 Routine an tenatal care 971957751 Z34.93 Depression screening 171 541158 Z13.32 ? B ehavioral health screening completed and reviewed with patient. Negative findings. Gestation period, 35 weeks [id number] Z3A.35 [id number] AMERICA CANSECO, DO G5 [address] [place] [address] 02/23/2021 11:08:41 02/24/2021 11:28:04 Routine care [id number] Z34.92 Viral screening [id number] 4 Z11.52 Gestation period, 36 weeks 30706337 Z3A.36 [id number] DANNA CASTELLANOS MD G5 [address] [place] [address] 03/02/2021 09:09:31 03/04/2021 09:29:56 Viral screening 306802862 Z11.59 Routine an tenatal care 693736750 Z34.02 Headaches: Yes Migraine now took tylenol not effective took excedrin migraine Nausea: now due to migraine Vomiting: No movement: Yes Contractio ns: Yes/Braxto n diaz Covid testing in office. Pt reports occas ctxns, seem to resolve spontaneou sly w/ rest. Pt reports + GFM. Pt c/o migraine today, minimally relieved w/ Tylenol & w/ Excedrin migraine she took. Pt denies scotomata, RUQ pain. Difficult to determine if pt may have mild range elevsated BP's due to migraine today vs evolving pre-E. Pt advised to proceed to L&D triage for further w/u for pre-E. Pt completed F/U labs in 01/17 w/ GI, no change in plan of care--pt to have F/U for further eval pp. Gestation period, 37 weeks 77635207 Z3A.37 [id number] AMERICA CANSECO DO G5 [address] [place] [address] 03/11/2021 15:12:09 03/12/2021 10:49:38 Hypertension complicating , childbirth and the puerperium [id number] O16.9 Pt readmitted to [facility] on 03/09 with elevated BPs, no rpt MgSO4 given. Dc home 03/10 with Nifedipine 60 mg XR? . Feels well. Denies VERGARA, Visual changes, RUQ Pian, N/V. Patient was prescribed Prazosin 1 mg by her Pysch secondary to night terrors but she states that it lowers her BP so she has not taken it. Patient denies any dizziness, headaches, and or visual disturbanc es. I reviewed that in this case, since her BP is still slightly elevated today that she can restart it and we will monitor her BP on both meds. She takes her BP at home and she will D/C it if her BPs drops to 90/60 or if she has any symptoms. Will have her RTO in 1 week to recheck BP while on both meds. [id number] SAM TEE DO G5 [address] [place] [address] 03/18/2021 10:11:48 03/19/2021 13:06:57 Abnormal blood pressure 76208950 Z01.31 Pt in office for BP check. complicate d by pre-E and pp course complicate d by PP pre-E. BP normal today. Also using Prazosin from PCP for night terrors. Has been using NIfedipine 60 mg XR. Will cut in half and start 30 mg XR from now until final PPV. Asymptomat ic today. Ongoign BP precaution s reviewed. Baby home and doing well. Pt comfortabl e with this plan. All questions answered. [id number] SAM TEE DO G5 [address] [facility] [place] [address] 04/14/2021 14:43:48 04/15/2021 15:53:40 care 180896623 Z39.2 Patient in the office for routine 6 week post visit. Doing well. No normal menses yet at this time. Pain has been well controlled . Denies headache, fever, chills, cp, sob. Adjusting well at home. Has good support. Reviewed EPDS and discussed score. So SI or HI reported. Baby doing well. All contracept loulou options reviewed. WIll stop BP meds. Monitor pressures at home. SHould follow up with PCP for any ongoing BP related issues. Monitor for headache, visual changes, CP, SOB. Depression screening 171 [id number] Z13.32 negative depression screening Contraception care 6317047 8516 Z30.40 Reviewed risks of OCPs. Alternativ e options reviewed. Not interested in IUD or Depo. WIll try low dose OCP. Close precaution s. Plan for follow up annual / BP check. All questions answered. Consent signed. Health Concerns Section Related Observation LastModified by Organization Bryan ha LastModified Time None Recorded Concern Status LastModified by Organization Details LastModified Time None Recorded Advance Directives Directive None Recorded Payers Encounter Date Sequence Insurance Name Policy Number Policy Ceja Covered Member ID Ceja Member ID Guarantor Name 02/23/2021 2 [place] Danica Haro [id number] Danica Perretyemi 02/23/2021 1 [place] [id number] Amada Perretta [id number] Danica Perretta 03/02/2021 2 [place] Danica Haro [id number] Danica Perretta 03/02/2021 1 [place] [id number] Amada Perretta [id number] Danica Perretta 03/11/2021 2 [place] Danica Haro [id number] Danica Perretta 03/11/2021 1 [place] [id number] Amada Perretta [id number] Danica Perretta 03/18/2021 2 [place] Danica Haro [id number] Danica Perretta 03/18/2021 1 [place] [id number] Amada Perretta [id number] Danica Perretta 04/14/2021 2 [place] Danica Haro [id number] Danica Perretta 04/14/2021 1 [place] [id number] Amada Perretta [id number] Danica Haro Notes Date Note Type Note Provider Name and Address Organization Details Recorded Time 03/11/2021 text/html Pt readmitted to [facility] on 03/09 with elevated BPs, no rpt MgSO4 given. Dc home 03/10 with Nifedipine 60 mg XR. Feels well. Denies VERGARA, Visual changes, RUQ Piian, N/V. AMERICA CANSECO, DO [address] [facility], [address], [place], [address], [place] [facility] 03/11/2021 15:45:15 03/18/2021 text/html NO headache or visual changes. NO RUQ pain. SAM TEE DO [address] [facility], [address] [place] [address], [place], [address], [facility] 03/18/2021 10:25:52 04/14/2021 text/html [facility] VisitReported bypatient.Associate d Symptoms:no abnormal bleeding; no pelvic pain; laceration well healed; no constipation; no fecal incontinence; no dysuria; no urinary incontinence; no fever; no problems; no mastitis SAM TEE DO [address] [facility], [address] [place] [address], [place], [address], [facility] 04/15/2021 13:39:34 OBGyn Episode Ob Episode Information Episode Created Date Number of Fetuses Patient Bloodtype Patient rh Status Prepregnancy Weight lbs Domestic Partner Domestic Partner Phone Father Name Ginner Helper Status 07/31/20 20 1 A Positive [address] [facility] Ped CLOSED Fetus Data First Name Last Name Admitted to NICU Weight (g) Sex Living Outcome Pediatric Complications Fetus ID Race Codes Race Delivery Type [facility] [phone] F true Full Term [id number] Vaginal Delivery Problems Problem Notes no past hx chicken pox, + ca ffeine (soda x1 a day), no cats in home (cats in parents home)02/23/21: COVID negative. ktb Problem Name Start Date End Date Resolution Snomed Code Not e Cannabis abuse [id number] Qtox at 12 wks + for MJ, else negative--to review w/ pt at next visit. CSD10/01/20: MJ+: REVIEWED AT LENGTH and she admits to smoking recreationally - I encouraged her to QUIT. Will retest q/visit. ktb112/01/19: MJ+. kt02/23/21: MJ negative. ktb Group B Streptococcus carrier [id number] GBS in urine. needs tx in labor. TBF Long-term current use of antipsychotic medication [id number] Currently using Qeutiapine and Prazosin. Level 2 USN scheduled. TBFLEVEL II USN wnl. Heroin dependence [id number] Hx of heroin use - not currently using. QTOX at [facility]. TB02/23/21: Opiod negative. ktb Depressive disorder 12/20/2017 [id number] also anxiety--sees psychiatrist/on Lexapro. Level 2 anatomy USN ordered. TB02/23/21: TCA positive (on antidepressants) . ktb Hepatitis C carrier [id number] Hep C + with IP[facility] labs. Check viral load. GI referral. TBF Negative Hep A & CMP, 01/17. CSD Benzodiazepine dependence [id number] Initial QTOX with benzo +. Review at next OB visit. Confirm meds. WIll need serial QTOX. TB02/23/21: Benzo negative. ktb Trevor Calculation Initial Trevor Date Initial Exam Date Initial Exam Provider Initial Ultrasound Date Last Menstrual Period Date Ultra Sound Weeks Gestation 03/17/2021 07/31/2020 06/10/2020 0 Eighteen To Twenty Week Trevor Update Ultra Sound Date Fundal Height At Umbil Quickening Date Ultra Sound Latest Weeks Gestation Final Trevor Confirmed By Final Trevor Confirmed Date Final Trevor Date Ultra Sound Latest Days Gestation 0 03/17/20 21 0 Pre-gutierrez Flowsheet Flowsheet Date 08/06/2020 Cooley Score Blood Edema Fundus Height Fundus Units Glucose Ketones Leukocytes Nitrite Labor Signs Protein Cervic Dilation Cervic Effacement Cervic Station none Other (see comments ) 0cm Type Weight in lbs Pre/Post Dialysis Refused With clothes 172.386916855674 BP Diastolic BP Location Tested BP Systolic BP Type 70 110 sitting Fetus Heart Rate Present Fetus Movement A No Comments Nausea: Yes, everydayVomitin g: NoHeadaches: Yes occasionalOccasional crampingBleeding after intercoursePatient in the office for her initial OB visit. Doing well so far. Reviewed early issues and discussed precautions including cramping, bleeding, discharge, morning sickness. Denies headache, fever, chills, cp, sob, bleeding, severe N/V. Occasional cramping. Reviewed [facility] practice policies and procedures. Reviewed male providers, importance of compliance with care, delivery and surgery at [facility], promotions firm accounts manager resident involvement, sun, bug, zika, and travel precautions. Reviewed all available first trimester genetic screening and 2nd trimester screening. Reviewed initial viability USN. NT USN scheduled. Age 20 - no pap today. Reviewed meds - will have NT and level 2 anatomy USN due to medication exposure. Not currently using heroin. Support provided. QTOX at lab as none in office. All questions answered. Will RTO in 4 weeks for OB visit, follow up all labs and testing. TBF Flowsheet Date 09/03/2020 Cooley Score Blood Edema Fundus Height Fundus Units Glucose Ketones Leukocytes Nitrite Labor Signs Protein Cervic Dilation Cervic Effacement Cervic Station Type Weight in lbs Pre/Post Dialysis Refused Weight 179.493298179654 BP Diastolic BP Location Tested BP Systolic BP Type 70 112 Fetus Heart Rate Present A 147 Fetus Movement Comments Pt is still waiting for dr t o call regarding + hep c results. Pt has some n/vergara, no swelling or vomiting. CC CMAPt denies c/o except slight backaches. Reviewed all results to date. Pt is awaiting call for GI eval, we will again try to contact GI office today. Pt aware of scheduled NT USN, intends to complete 1st tri screening today.RTO 4 wks Flowsheet Date 10/01/2020 Cooley Score Blood Edema Fundus Height Fundus Units Glucose Ketones Leukocytes Nitrite Labor Signs Protein Cervic Dilation Cervic Effacement Cervic Station neg none 16 wks none negative trace Negative trace Type Weight in lbs Pre/Post Dialysis Refused Weight 179.866591038181 BP Diastolic BP Location Tested BP Systolic BP Type 54 112 Fetus Heart Rate Present A 144 Present Fetus Movement A Yes Comments Headaches: Yes every other d ay, tolerable with TylenolNausea: NoVomiting: NoContractions (Cramping or Bleeding): NoFetal Movement: FluttersAFP slip given in office today patient aware to go to [facility] and can go now.Qtox done in office today: +MJ and TCA. REVIEWED AT LENGTH and she admits to smoking recreationally - I encouraged her to QUIT. Will retest q/visit.Will check UAC&S as well as she had some protien in the urine dip but could not void again in the office.Has ANATOMY/LEVEL II USN booked. Flowsheet Date 11/02/2020 Cooley Score Blood Edema Fundus Height Fundus Units Glucose Ketones Leukocytes Nitrite Labor Signs Protein Cervic Dilation Cervic Effacement Cervic Station neg none none negative none Negative none neg Type Weight in lbs Pre/Post Dialysis Refused Weight 190.622548965694 BP Diastolic BP Location Tested BP Systolic BP Type 56 112 Fetus Heart Rate Present A 150 Present Fetus Movement A Yes Comments Headaches; Occ tylenol effec tiveNausea: NoVomiting: Nofetal movement: YesContractions: NoAnatomy scan done 10/23at SFHQtox in officeFlu vaccine done at pedi ([facility]) office 08/2020Doing well, no complaints. s/p flu vaccine. Reviewed negative MSAFP. No UTI noted with urine culture. Normal level II USN other than echogenic focus, patient s/p normal Panorama results. QTOX today in office negative for MJ (+ TCA). Patient had visit with GI ~ one month ago, was advised to go for labs but has not yet done this, planning to go today. Flowsheet Date 12/07/2020 Cooley Score Blood Edema Fundus Height Fundus Units Glucose Ketones Leukocytes Nitrite Labor Signs Protein Cervic Dilation Cervic Effacement Cervic Station neg none 26 cm none negative none Negative neg Type Weight in lbs Pre/Post Dialysis Refused Weight 214.506737833979 BP Diastolic BP Location Tested BP Systolic BP Type 60 116 Fetus Heart Rate Present A 147 Fetus Movement A Yes Comments Headaches: OccNausea: NoVomi ting: NoFetal movement: YesContractions: NoPt aware needs to go for 28 week bld work due 12/23/2020 at [facility] [employer] [facility] [employer] [facility] Pt given info regarding cord bld and Tdap.Qtoxo done in office today--+ for TCA; will check confirmatory testing.Pt notes + GFM & rare cramping. Pt states she completed labs for GI 3 d ago, awaiting results; pt states she is to F/U after to address Hep C.Reviewed results to date & upcoming 3rd tri labs.RTO 4 wks Flowsheet Date 01/04/2021 Cooley Score Blood Edema Fundus Height Fundus Units Glucose Ketones Leukocytes Nitrite Labor Signs Protein Cervic Dilation Cervic Effacement Cervic Station neg none 30 cm none negative none Negative neg Type Weight in lbs Pre/Post Dialysis Refused Weight 225.214367524585 BP Diastolic BP Location Tested BP Systolic BP Type 60 114 Fetus Heart Rate Present A 138 Fetus Movement A Yes Comments Headaches: NoNausea: NoVomit ing: NoFetal movement: YesContractions: NoQtoxo in office today.Tdap given todayPt denies c/o, notes + FM & no ctxns.Reviewed results to date. Pt awaiting review o f recent lab eval w/ GI. Office qtox negative save for TCA.RTO 3 Flowsheet Date 01/26/2021 Cooley Score Blood Edema Fundus Height Fundus Units Glucose Ketones Leukocytes Nitrite Labor Signs Protein Cervic Dilation Cervic Effacement Cervic Station neg trace 33 none negative none Negative Other (see comments ) neg Type Weight in lbs Pre/Post Dialysis Refused Weight 239.405796281912 BP Diastolic BP Location Tested BP Systolic BP Type 66 124 Fetus Heart Rate Present A 150 Present Fetus Movement A Yes Comments Headaches: Occasional (mild) ,Nausea: No,Vomiting: No,Contractions (Cramping or Bleeding): No, Movement: Yes.Routine OB visit. Size = date. FHR reassuring. Denies headache, fever, chills, cp, sob. No regular cramping or contractions. Sun, bug, Zika, travel precautions all reviewed. COVID, PTL, and FM precautions all discussed. EFW USN at 36 wga scheduled. QTOX today. GBS +, no culture needed at 36 wga. RTO in 2 weeks. TBF Flowsheet Date 02/09/2021 Cooley Score Blood Edema Fundus Height Fundus Units Glucose Ketones Leukocytes Nitrite Labor Signs Protein Cervic Dilation Cervic Effacement Cervic Station neg none none negative none Negative Other (see comments ) neg Type Weight in lbs Pre/Post Dialysis Refused Weight 248.866266728681 BP Diastolic BP Location Tested BP Systolic BP Type 74 122 Fetus Heart Rate Present A 145 Present Fetus Movement A Yes Comments Headaches: OccNausea: NoVomi ting: NoFetal movement: YesContractions: NoQtox done in office todayRoutine OB visit. Size = date. FHR reassuring. Denies headache, fever, chills, cp, sob. No regular cramping or contractions. Sun, bug, Zika, travel precautions all reviewed. COVID, PTL, and FM precautions all discussed. EFW USN upcoming. GBS +, no culture at 36 wga needed. RTO in 1 week. TBF Flowsheet Date 02/16/2021 Cooley Score Blood Edema Fundus Height Fundus Units Glucose Ketones Leukocytes Nitrite Labor Signs Protein Cervic Dilation Cervic Effacement Cervic Station neg none 36 cm none negative none Negative Other (see comments ) neg Type Weight in lbs Pre/Post Dialysis Refused Weight 258.701023285065 BP Diastolic BP Location Tested BP Systolic BP Type 68 110 Fetus Heart Rate Present A 138 Present Fetus Movement A Yes Comments Headaches: OccNausea: OccVom iting: noFetal movement: YesContractions: NoPt had covid testing, Qtoxo done in office today.GBS + in pastno ctxs, cramping, bleeding or ROMCovid-19 screen NegativeGood FMSOL and FACs reviewedsun, bug, Zika, Covid-19, sex and travel precautions reviewedNo recent Viral illness, rash or arthralgiasHospital, Office and visitor policy reviewedRecent Covid-19 information/ precautions reviewedLabs and U/S reviewed: Check Qtox and covid status// GBS POS in urine/ EFW : 5 lbs 12 oz 49%ile Flowsheet Date 02/23/2021 Cooley Score Blood Edema Fundus Height Fundus Units Glucose Ketones Leukocytes Nitrite Labor Signs Protein Cervic Dilation Cervic Effacement Cervic Station neg none 37 cm none negative none Negative neg 0cm 50 % -3 Type Weight in lbs Pre/Post Dialysis Refused Weight 260.153122123927 BP Diastolic BP Location Tested BP Systolic BP Type 74 118 Fetus Heart Rate Present A 144 Present Fetus Movement A Yes Comments ob 36.6 NEG N/V ,occasional headaches with Tylenol relief, some edema. Covid swab collected. +GBS in urine - WILL NEED TREATMENT IN LABOR. qtox in office today + TCA on QTOX but all others are WNL. On antidepressants. Labor precautions reviewed at length. Flowsheet Date 03/02/2021 Cooley Score Blood Edema Fundus Height Fundus Units Glucose Ketones Leukocytes Nitrite Labor Signs Protein Cervic Dilation Cervic Effacement Cervic Station neg none 38 cm none negative none Negative neg 1cm 70 % -2 Type Weight in lbs Pre/Post Dialysis Refused Weight 268.704522398090 BP Diastolic BP Location Tested BP Systolic BP Type 90 140 sitting 90 134 sitting Fetus Heart Rate Present A 125 Fetus Movement A Yes Comments Headaches: Yes Migraine now took tylenol not effective took excedrin migraine Nausea: now due to migraineVomiting: NoFetal movement: YesContractions: Yes/Hickman hicksCovid testing in office.Pt reports occas ctxns, seem to resolve spontaneously w/ rest. Pt reports + GFM. Pt c/o migraine today, minimally relieved w/ Tylenol & w/ Excedrin migraine she took.Pt denies scotomata, RUQ pain. Difficult to determine if pt may have mild range elevsated BP's due to migraine today vs evolving pre-E. Pt advised to proceed to L&D triage for further w/u for pre-E.Pt completed F/U labs in 01/17 w/ GI, no change in plan of care--pt to have F/U for further eval pp. Menstrual History Last Menstrual Date Menses Monthly On Bcp Conception Prior Menses Frequency Hcg Plus Date Menarche Onset Age 0706/10/2020 10 Genetic Screening And Infection History Question Response Note Patient's Age Will Be 35 Yea rs Or Older At Estimated Date of Delivery false Thalassemia (Guyanese, Welsh, Mediterranean, Or Background): MCV < 80 false pt's father? Neural Tube Defect (Meningom yelocele, Spina Bifida, Or Anencephaly) false Congenital Heart Defect false Down Syndrome false Edward-Sachs (eg, Jainism, Cajun , Belarusian-[place]orry) false Dejan Disease false Sickle Cell Disease Or Trait () false Hemophilia Or Other Blood Disorders true pt is anemic Muscular Dystrophy true paternal gran dmother, paternal aunt Cystic Fibrosis false Michelle's Chorea false Mental Retardation/Autism true matern al and paternal cousins If Yes, Was Person Tested For Fragile X? false Other Inherited Genetic Or C hromosomal Disorder false Maternal Metabolic Disorder (eg, Type 1 Diabetes, PKU) false Patient Or Baby's Father Had A Child With Defects Not Listed Above false Recurrent Loss, Or A Stillbirth false Medications (including Suppl ements, Vitamins, Herbs, OTC Drugs), Illicit/Recreational Drugs, Alcohol true iron, 175mg seraqu il, 25mg lexapro, 1 mg prazosin If Yes, Agent(s) And Strength/Dosage true recovered, pt lives in sober house Any Other Genetic History false Live With Someone With TB Or Exposed To TB false Patient Or Partner Has Histo ry Of Genital Herpes false Rash Or Viral Illness Since Last Menstrual Period false History Of STD, Gonorrhea, C hlamydia, HPV, Syphilis true past hx of chlamydia Other Infection History false Familial Dysautonomia (Ashkenazi Jainism) false Spinal Muscular Atrophy false Parkinson Disease true maternal great aunt History of HIV false History of Hepatitis false Prior GBS-infected child false Plans and Education First Trimester Discussed Date Discussion Item Discussion Note Discuss ed By 08/06/2020 Anticipated course of care [email or web address] 08/06/2020 Alcohol [email or web address] 08/06/2020 Intimate partner violence tf [id number] 08/06/2020 Environmental/work hazards t [id number] 08/06/2020 Screening for aneuploidy tfi 08/06/2020 Nutrition counseling ; special diet; dietary precautions (mercury, listeriosis) 08/06/2020 Childbirth classes/hospital facilities 08/06/2020 HIV and other routine tests 08/06/2020 Risk factors identif ied by history 08/06/2020 Weight gain counseling 08/06/2020 Exercise 08/06/2020 Teratogens 08/06/2020 Use of any medicatio ns (including supplements, vitamins, herbs, or OTC drugs) [email or web address] 08/06/2020 08/06/2020 Sexual activity [email or web address] 4 08/06/2020 Tobacco/smoking cess ation counseling (ask, advise, assess, assist, and arrange) [email or web address] 08/06/2020 Illicit/recreational drugs t [email or web address] 08/06/2020 Dental care alpeafmlteu19 08/06/2020 Travel [id number] 08/06/2020 Seat belt use [id number] 08/06/2020 Indications for ultrasonography [id number] 08/06/2020 Avoidance of saunas or hot tubs [email or web address] 08/06/2020 Toxoplasmosis precau tions (cats/raw meat) Second Trimester Discussed Date Discussion Item Discussion Note Discuss ed By 10/01/2020 Selecting a care provider [email or web address] 10/01/2020 Abnormal lab values kborkows ki1 10/01/2020 Signs and symptoms of labor kborkowski1 10/01/2020 Intimate partner violence kb orkowski1 10/01/2020 Provided information about childbirth education classes jayneowski Third Trimester Discussed Date Discussion Item Discussion Note Discuss ed By 02/23/2021 Intimate partner violence sindhu mar 01/26/2021 Anesthesia plans tfitzgerald 14 02/09/2021 education (n ewborn screening, jaundice, SIDS/safe sleeping position, car seat) [email or web address] 02/09/2021 Postterm counseling tfij luis ald14 01/26/2021 movement monitoring tf orlvwclmt59 02/23/2021 barbara01/26/2021 Labor signs nilycfqojcb10 01/26/2021 Family medical leave or disability forms [id number] 02/23/2021 Signs and symptoms of preeclampsia barbara01/26/2021 Discussed and offered TDAP t [id number] Delivery Information Delivery Date Delivery Type Labor Anesthesia Weeks Gestation Incision Type Labor Labor Length Hrs Delivered By Post Complications Tubal Sterilization Discharge Date Comments [facility] 38 Larissa Chicas DO 03/05/2021 Discharge Information Feeding Method Contraceptive Method Maternal HG B and HCT Levels Bottle
--- OUTSIDE RECORDS SUMMARY | 2025-01-20 12:28 | XMS_ITS ---
Author Name [facility] Organization Unknown History of Medication Use Medication Directions Dispensed Refills Start Date End Date Stat us benzonatate (TESSALON) 200 mg capsule Take 1 capsule (200 mg total) by mouth 3 (three) times daily as needed for cough for up to 5 days. 12/25/2024 active albuterol sulfate 90 mcg/actuation HFA aerosol inhaler Inhale 2 puffs into the lungs every 6 (six) hours as needed for wheezing. 12/25/2024 active fluticasone propionate (FLONASE) 50 mcg/actuation nasal spray Use 2 sprays in each nostril daily. 12/25/2024 active ARIPiprazole (ABILIFY) 10 mg tablet Take 1 tablet (10 mg total) by mouth at bedtime. 06/27/2024 active amoxicillin-clavulan ate (AUGMENTIN) 875-125 mg per tablet Take 1 tablet by mouth every 12 (twelve) hours for 7 days. 09/16/2024 09/24/2024 active sertraline (ZOLOFT) 50 mg tablet Take 1 tablet (50 mg total) by mouth daily. 08/28/2024 active Problems Problem Status Onset Date Problem Type Date of Resoluti on Source COVID-19 active 2024-12-02 [facility]Act [facility] C Fever, unspecified fever cause active 2024-12-02 [facility] Acute cough active 2024-12-25 ProblemAct [facility] Immunizations Vaccine Date Source Lot Number Status Hib, unspecified formulation 09/04/2001 [facility] completed Pneumococcal conjugate PCV 7 05/18/2001 [facility] completed DTaP, unspecified formulation 2000 [facility] completed Tdap 05/13/2011 [facility] [id number] completed Polio (IPV) 2000 [facility] completed Polio (IPV) 04/30/2004 [facility] completed Hep B, unspecified formulation 2000 [facility] completed MMR 04/30/2004 [facility] completed Influenza, split virus, triv alent, Preservative Free 11/16/2011 [facility] [id number] completed DTaP, unspecified formulation 10/29/2001 [facility] completed Hep B, adolescent or pediatric 03/29/2018 [facility] [id number] completed DTaP, unspecified formulation 2000 [facility] completed Hep B, unspecified formulation 11/09/2017 [facility] completed Hib, unspecified formulation 2000 [facility] completed Meningococcal MCV4P - Menactra 05/13/2011 [facility] [id number] AA completed Meningococcal B, OMV (Bexsero) 07/11/2017 [facility] 40463 1A completed Pneumococcal conjugate PCV 7 02/19/2001 [facility] completed Influenza, injectable, quadr ivalent, preservative free 09/18/2015 [facility] [id number] completed Hep B, adolescent or pediatric 12/11/2017 [facility] G9H24 completed Influenza, injectable, quadr ivalent, preservative free 11/09/2017 [facility] [id number] completed Meningococcal B, OMV (Bexsero) 08/24/2017 [facility] 77535 1A completed Influenza, injectable, quadr ivalent, preservative free 12/03/2014 [facility] [id number] completed Meningococcal MCV4P - Menactra 06/23/2016 [facility] U5187 AA completed HPV, quadrivalent 11/16/2011 [facility] [id number] complet ed HPV, quadrivalent 05/13/2011 [facility] [id number] complet ed HPV, quadrivalent 07/15/2011 [facility] [id number] complet ed Hep B, unspecified formulation 02/19/2001 [facility] completed Influenza, injectable, quadr ivalent, preservative free 09/18/2020 [facility] [id number] completed MMR 09/04/2001 [facility] completed Hib, unspecified formulation 2000 [facility] completed Hep B, adolescent or pediatric 11/09/2017 [facility] G9H24 completed Hep B, unspecified formulation 2000 [facility] completed Hib, unspecified formulation 2000 [facility] completed Polio (IPV) 10/29/2001 [facility] completed Varicella 05/18/2001 [facility] completed DTaP, unspecified formulation 04/30/2004 [facility] completed Varicella 06/03/2008 [facility] completed Polio (IPV) 2000 [facility] completed DTaP, unspecified formulation 2000 [facility] completed Pneumococcal conjugate PCV 7 09/04/2001 [facility] completed
== END 2025-01-20 11:48 | disposition home or self-care (01) ==
PROVIDERS: PCP Nurse Practitioner Family; Visit Provider Nurse Practitioner Family
DX: Z00.00 Encounter for general adult medical examination without abnormal findings (principal); E66.01 Morbid (severe) obesity due to excess calories; Z68.41 Body mass index [BMI] 40.0-44.9, adult; F11.11 Opioid abuse, in remission; F33.1 Major depressive disorder, recurrent, moderate; F17.290 Nicotine dependence, other tobacco product, uncomplicated; K21.9 Gastro-esophageal reflux disease without esophagitis; R19.8 Other specified symptoms and signs involving the digestive system and abdomen; R10.9 Unspecified abdominal pain; G89.29 Other chronic pain; F41.1 Generalized anxiety disorder; Z23 Encounter for immunization

== ENCOUNTER → 2025-01-20 10:54 | Outpatient (BNVA) | payer OTHER, SELFPAY | PROVIDERS: PCP Nurse Practitioner Family; Visit Provider Nurse Practitioner Family | DX: Z00.01 Encounter for general adult medical examination with abnormal findings (principal); Z23 Encounter for immunization; E66.01 Morbid (severe) obesity due to excess calories; Z68.41 Body mass index [BMI] 40.0-44.9, adult; K21.9 Gastro-esophageal reflux disease without esophagitis; R19.8 Other specified symptoms and signs involving the digestive system and abdomen; R10.9 Unspecified abdominal pain; G89.29 Other chronic pain; F33.1 Major depressive disorder, recurrent, moderate; F41.1 Generalized anxiety disorder; F11.11 Opioid abuse, in remission; Z92.29 Personal history of other drug therapy; Z76.89 Persons encountering health services in other specified circumstances; Z86.19 Personal history of other infectious and parasitic diseases; Z72.0 Tobacco use; Z71.3 Dietary counseling and surveillance; Z71.6 Tobacco abuse counseling | CPT/HCPCS: 90471; 90656; 96127; 99212; 99385 ==

== ENCOUNTER 2025-01-21 12:47 | Outpatient (REF) | payer OTHER, SELFPAY ==
[2025-01-21 14:48] LABS: Estimated Average Glucose 94 mg/dL; Hemoglobin A1C 104.7779 umol/L; Hemoglobin A1c % 4.9 % (<6.0); Total Hemoglobin (HGBA1C) 3436.8977 umol/L
[2025-01-21 14:49] LABS: Creatinine Urine 109.75 mg/dL; Microalbum/Creatinine Ratio Ur 8.2 ug/mg cr (<30)
[2025-01-21 14:58] LABS: Alanine Aminotransferase 23 U/L (0-31); Albumin Level 4.4 g/dL (3.5-5.0); Alkaline Phosphatase 44 U/L (39-117); Anion Gap 12 (12-20); Aspartate Amino Transferase 18 U/L (5-31); Bilirubin Total 0.4 mg/dL (0.0-1.0); Blood Urea Nitrogen 19 mg/dL (9-16); Calcium 9.7 mg/dL (8.4-10.2); Carbon Dioxide 25 mmol/L (22-29); Chloride 106 mmol/L (96-108); Cholesterol 194 mg/dL (<200); Estimated Glomerular Filt Rate > 60; Glucose Random 84 mg/dL (60-115); HDL Cholesterol 31 mg/dL (>40); LDL Cholesterol Calculated 87 mg/dL (<100); Sodium 139 mmol/L (135-145); Total Protein 8.5 g/dL (6.5-8.0); Triglycerides 383 mg/dL (<150)
[2025-01-21 15:02] LABS: TSH reflex Free T4 0.88 uIU/mL (0.32-4.0); Vitamin D 25-OH Total 52.4 ng/mL (>30)
[2025-01-21 15:12] LABS: Folate 11.5 ng/mL (> or = 4.0); Vitamin B12 1244 pg/mL (200-900)
--- OUTSIDE RECORDS SUMMARY | 2025-01-21 15:33 | XMS_ITS | Data Portability ---
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 another program at [facility]. 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 I put in a call to Danica's DCF worker to let them know about this. Blister 033748229 R23.8 Has blisters on her feet b/l - no evidence of acute infection currently but discussed wound care extensivel y. Will use topical antibiotic , keep clean and wear supportive footwear.I do not see track piper and blisters are consistent with her story but I stressed importance of recheck if sx worsening [id number] MD JAYDE Madsen [address] [address] 06/29/2018 08:55:06 06/29/2018 09:57:35 Dysuria 48088728 R30.0 Urinary tr act infectious disease 12870805 N39.0 Udip suspicious so will start her on antibiotic s. If cx neg will DC (confirmed pt's cell number in chart). If sx worsening despite meds will RTO Substance abuse 43876090 F19.10 Looks well today- boyfriend of overdose last month. She does have narcan. Encouraged to get back in with therapist [id number] MD JAYDE Madsen [address] [place] [address] 07/06/2018 14:31:00 07/06/2018 16:33:39 Adult health examination 017256616 Z00.01 18 year old female with substance abuse issues - hospitaliz ations this past year but completed program and currently clean.Had HIV/Hep B testing at most recent hospital admission this springJust had negative urine screen last week at acute visit - followed by restaurant recruiter as well Normal bod y mass index 12050325 Z68.22 Weight had jumped up 15 lbs after last hospitaliz ation but now back to her baseline weight. Substance abuse 07094290 F19.10 Boyfriend of overdose last month. She does have narcan. Has services through [facility] but looking to transition to closer provider. Anxiety 51192814 F41.9 On Lexapro - followed by psychiatri st [id number] Venancio Chaudhari MD [address] [address] 09/10/2019 12:24:03 09/10/2019 13:58:04 Adult health examination 700575067 Z00.00 18 year old female with substance abuse issues - reports being clean x 6 mos since going to rehab. Plans to go to college in spring which I encourage. Is still very at risk given her risk of relapsing into substance use. 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 On OCP, didn't tolerate nuvaring but would be a great candidate for IUD/nexpla non. Encouraged to discuss with restaurant recruiter Normal bod y mass index 71483011 Z68.1 Says weight is actually up from where it was last month. Increased body mass index 92105651 E66.3 Substance abuse 92285021 F19.10 Went to rehab 02/12 and reports being clean since then. Discussed importance of her finding a new therapist even though things are going well now.Report s only juuling - discussed risks associated Anxiety 54858806 F41.9 Off all meds and reports doing well [id number] BRYNN JERICA [address] [address] 11/22/2019 16:55:29 11/22/2019 19:31:01 Impacted cerumen in right ear [id number] 872449 H61.21 [id number] Venancio Chaudhari MD [address] [address] 12/10/2019 14:55:36 12/10/2019 16:40:41 Impacted cerumen 27572029 H61.21 R EAC cleared with flushing and curettage. Discussed Q tip use. f/U PRN [id number] Venancio Chaudhari MD [address] [address] 09/18/2020 11:24:27 09/18/2020 13:29:37 Adult health examination 958479726 Z00.00 20 year old female with longstandi ng h/o substance abuse issues, recently completed a 6 month stay at [facility] and is now 3 months .W ill be transition ing to adult medicine after this visit.Cons idering returning to college next year - lots of encouragem ent given. Diet education 33227448 Z71.3 Exercises education, guidance, and counseling 505986693 Z71.82 Increased body mass index 31842851 E66.3 Influenza vaccine needed 0471762283 106 Z23 VC obtained for flu. Substance abuse 08722681 F19.10 Completed 6 mos in sober [facility] [...] Member ID Ceja Member ID Guarantor Name 07/06/2018 1 [facility] [facility] - EP1 - CHOICE [id number] Jennifer P Perretta [id number] Jennifer P Perretta 09/10/2019 1 [place] [id number] Amada Perretta [id number] Jennifer P Perretta 11/22/2019 1 [place] [id number] Amada Perretta [id number] Jennifer P Perretta 12/10/2019 1 [place] [id number] Amada Perretta [id number] Jennifer P Perretta 12/10/2019 2 [place] AMBERLY Haro [id number] Jennifer Yusuf Perretta 09/18/2020 1 [facility]: BCBS ([place]) [id number] Amada Haro [id number] Jennifer Yusuf Perretta 09/18/2020 2 [place] Sahil Haro [id number] Jennifer Haro Notes Date Note Type Note Provider Name and Address Organization Details Recorded Time 11/22/2019 text/html RS Sick Visit Narrative HistoryReported bypatient.Notes:Right ear feels blocked and SHEA x3-4 days. Tried ear drops and used a warm compress. BRYNN bullard [facility] 11/22/2019 17:54:14 12/10/2019 text/html RS [...] head pressure. Afebrile. Venancio Chaudhari MD [address] [place] [address], [phone], [facility] 12/10/2019 17:47:07 OBGyn Episode No OBEpisode recorded.
--- OUTSIDE RECORDS SUMMARY | 2025-01-21 15:33 | XMS_ITS | Encounter Summary ---
Author Organization [facility] Address [address] [place] [phone] Phone Care Team Providers Care Catering Director Name Role Phone Pcp, Does Not Have A Primary Care Provider Unava ilable Reason for Visit * Reason Comments Cough C/o started 2 days c ongested cough getting worse lightheaded when coughing wheezing chills , Encounter Details Date Type Department Care Team ([facility] Contact Info) Description 12/25/2024 5:45 PM EST Office Visit [facility] [place] [address] [place] [address] Kendall Rousseau PA [address] [place] [phone] Acute cough (Primary Dx) Social History Tobacco [...] were not included. Thank you for choosing [facility] today! Diagnosis: Acute cough Benzonatate, [...] doctor please contact that connection center at [phone] -If you experience worsening or severe symptoms [...] warm water a few times a day. [place] saltwater mist in each nostril. Any normal saline spray works. Sip warm liquids to keep your throat moist. Take warm, steamy showers to help soothe the cough. Do not smoke or be in smoke-filled places. Avoid things that may cause breathing problems like vaping, fumes, pollution, dust, and other common allergens. You may want to use edux-wbe-ehadrzi medicines for allergies or acid reflux if your cough is due toone of these problems. You can also use an mssh-kat-mozkotl cough medicine. Drink plenty of fluids whenever [...] before you take any drugs. This includes cbmh-ytp-bcepwfi (OTC) drugs and herbal supplements. This is [...] trouble breathing. Where can I learn more? [place] [employer] https://familydoctor.org/condition/rxqhj-lbj-caf-flu/ [place] [employer] Association http://www.lung.org/kiuk-ggbmgf-szt-diseases/vugx-xoaoltq-emxtgb/influenza/facts -wlnfw-kls-rffysh-cold.html Centers for Disease Control and Prevention https://www.cdc.gov/features/rhinoviruses/ Kids Health http://kidshealth.org/en/parents/cold.html?ref=search&WT.ac=zbj-n-wcyq-en-search -clk Last Reviewed Date 2021-05-05 Consumer Information [...] or approved for treating a specific patient. [employer] and its affiliates disclaim any warranty or liability relating to this information or the use thereof. The use of this information is governed by the Terms of Use, available at https://www.Echograph.BoxTone/en/know/naacguey-usqrkfthodyru-pzcaa Copyright Copyright ?? 2022 [employer] and its affiliates and/or licensors. All rights reserved. documented in this encounter Progress Notes * Kendall Rousseau PA - 12/25/2024 5:45 PM EST Subjective Chief Complaint/HPI: Danica Haro is a 24 y.o. female patient presents with cough congestion, chest tightness, rhinorrhea, wheezing and chills for approximately 2 days. Patient has been taking nxky-uwj-urbbtjk medication with improvement. She denies fever, chest [...] Activity: Not on File (02/09/2022) Received from [employer] Physical Activity Physical Activity: 0 Stress: Not [...] Detected Not Detected POC Kit Lot Number [id number] POC Expiration Date 04/26/2026 Assessment & Plan [...] antibiotics are not indicated at this time. -Rial-fvq-uklmqzf medications were discussed with the patient and the patient was provided dosing instructions. -The patient will be discharged with instructions should they develop difficulty breathing, new or persistent fevers, not tolerating food or fluids, respiratory distress, or new symptoms to go to [facility] emergency department immediately for prompt evaluation to which the patient was able to verbalize understanding. I encouraged close follow-up with their primary care physician for a repeat exa m. Discharge Instructions: Thank you for choosing [facility] today! Diagnosis: Acute cough Benzonatate, [...] have a primary doctor please contact that [facility] at -If you experience worsening [...] Comments POCT SARS COV-2 (COVID-19) PCR/INFLUENZA A+B ([facility]) Routine 12/25/2024 6:57 PM EST Acute cough documented in this encounter Results * POCT SARS COV-2 (COVID-19) PCR/Influenza A+B (In-Clinic) (12/25/2024 6:57 PM EST) POC SARS-CoV-2 (COVID-19) PCR Not Detected Not Detected POC Influenza A Not Detected Not Detected POC Influenza B Not Detected Not Detected POC Kit Lot Number [id number] POC Expiration Date 04/26/2026 Nasal Swab 12/25/2024 6:57 PM EST Kendall KASPER POINT OF CARE ORDERS W/FUTURE F inal Result documented in this encounter Visit Diagnoses Diagnosis Acute cough- Primary documented in this encounter Care Teams Catering Director Relationship Specialty Start Date End Date Pcp, Does Not Have A PCP - General 12/02/24 documented as of this encounter
--- OUTSIDE RECORDS SUMMARY | 2025-01-21 15:33 | XMS_ITS | Data Portability ---
Author Organization [place] - [facility], [facility] Address [address] [place] [address] Care Team Providers Care Food Safety Specialist Name Role Phone [email or web address] Primary Care Provider Assessment No assessment recorded. Plan of Treatment Reminders Order Date Submit Date Provider Last Modified By Organization Details Last Modified Time Details Appointments None recorded. 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 Procedures None recorded. Surgeries None recorded. Imaging None recorded. Medication Orders Loestrin Fe 12/16 (28-Day) 1 mg-20 mcg (21)/75 mg (7) tablet 2020 021 [facility] #[id number], [address], [place], [address], 15:11:06 Patient TargetsNo targets recorded. Patient Instructions Encounter Date Encounter Id Patient Instructions Last Modified By Organization Details Last Modified Time 04/14/2021 [id number] [facility]al [facility]alt [facility] screening completed and reviewed with patient. Negative findings. [email or web address] Not available 04/14/2021 15:36:20 Reason for Referral None Reported. Results Created Date Observation Date Name Description Value Unit Range Abnormal Flag Note LastModifiedBy Organization Detail LastModifiedTime 02/20/20 21 02/23/2021 toxic ology scree n, urine Marijuana (THC) negati ve Not Available In-Office Order Internal Use Only DO Not Attach Compendium DO Not Attach Compendium, Do Not Delete/merge, [id number] 02/19/2021 13:14:18 02/20/20 21 02/23/2021 toxic ology scree n, urine Cocaine (BARNEY 300) negati ve Not Available In-Office Order Internal Use Only DO Not Attach Compendium DO Not Attach Compendium, Do Not Delete/merge, [id number] 02/19/2021 13:14:18 02/20/20 21 02/23/2021 toxic ology scree n, urine Opiates (MOP) negati ve Not Available In-Office Order Internal Use Only DO Not Attach Compendium DO Not Attach Compendium, Do Not Delete/merge, [id number] 02/19/2021 13:14:18 02/20/20 21 02/23/2021 toxic ology scree n, urine Amphetamine (AMP) negati ve Not Available In-Office Order Internal Use Only DO Not Attach Compendium DO Not Attach Compendium, Do Not Delete/merge, [id number] 02/19/2021 13:14:18 02/20/20 21 02/23/2021 toxic ology scree n, urine Methamphetam ine (MET) negati ve Not Available In-Office Order Internal Use Only DO Not Attach Compendium DO Not Attach Compendium, Do Not Delete/merge, [id number] 02/19/2021 13:14:18 02/20/20 21 02/23/2021 toxic ology scree n, urine Barbiturates (BAR) negati ve Not Available In-Office Order Internal Use Only DO Not Attach Compendium DO Not Attach Compendium, Do Not Delete/merge, [id number] 02/19/2021 13:14:18 02/20/20 21 02/23/2021 toxic ology scree n, urine Benzodiazepi dang (BZO) negati ve Not Available In-Office Order Internal Use Only DO Not Attach Compendium DO Not Attach Compendium, Do Not Delete/merge, [id number] 02/19/2021 13:14:18 02/20/20 21 02/23/2021 toxic ology scree n, urine Methylenedio xymethamphet amine (MDMA ? Ecstasy) negati ve Not Available In-Office Order Internal Use Only DO Not Attach Compendium DO Not Attach Compendium, Do Not Delete/merge, [id number] 02/19/2021 13:14:18 02/20/20 21 02/23/2021 toxic ology [...] DO Not Attach Compendium, Do Not Delete/merge, [id number] 02/19/2021 13:14:18 02/20/20 21 02/23/2021 toxic ology scree n, urine Phencyclidin e (PCP) negati ve Not Available In-Office Order Internal Use Only DO Not Attach Compendium DO Not Attach Compendium, Do Not Delete/merge, [id number] 02/19/2021 13:14:18 02/20/20 21 02/23/2021 toxic ology scree n, urine Tricyclic Antidepressa nts (TCA) positi ve Not Available In-Office Order Internal Use Only DO Not Attach Compendium DO Not Attach Compendium, Do Not Delete/merge, [id number] 02/19/2021 13:14:18 01/27/20 21 01/28/2021 [place] [address] 7 benzodiazepi dang NEGATI VE NG/mL <100 normal Not Available [facility] [address], [place], [address], 01/28/2021 04:08:53 01/27/20 21 01/28/2021 cp 79976 7 cocaine metabolite NEGATI VE NG/mL <150 normal Not Available [facility] [address], [place], [address], 01/28/2021 04:08:53 01/27/20 21 01/28/2021 cp 56976 7 opiates NEGATI VE NG/mL <100 normal Not Available [facility] [address], [place], [address], 01/28/2021 04:08:53 01/27/20 21 01/28/2021 cp 33483 7 oxycodone NEGATI VE NG/mL <100 normal Not Available [facility] [address], [place], [address], 01/28/2021 04:08:53 01/27/20 21 01/28/2021 cp 50311 7 comment See Note 1 Not Available [facility] [address], [place], [address], 01/28/2021 04:08:53 01/27/20 21 01/28/2021 cp 28599 7 amphetamines NEGATI VE NG/mL <500 normal Not Available [facility] [address], [place], [address], 01/28/2021 04:08:53 01/27/20 21 01/28/2021 cp 50377 7 comment See Note 2 Not Available [facility] [address] [place]in Agu[place], [place], [address], 01/28/2021 04:08:53 01/27/20 21 01/28/2021 cp 45645 7 barbiturates NEGATI VE NG/mL <300 normal Not Available [facility] [place] [facility] [address] [place], [place], [address], 01/28/2021 04:08:53 01/27/20 21 01/28/2021 cp 39665 7 comment See Note 2 Not Available [facility] [place] [facility] [address] [place], [place], [address], 01/28/2021 04:08:53 01/27/20 21 01/28/2021 cp 04408 7 marijuana metabolite 20 NEGATI VE NG/mL <20 normal Not Available [facility] [place] [facility] [address] [place], [place], [address], 01/28/2021 04:08:53 01/27/20 21 01/28/2021 cp 77850 7 comment See Note 2 Note 1 [...] alist : [phone] ( [phone] ), M-F, 8am-6 pm EST. Note 2 [...] alist : [phone] ( [phone] ), M-F, 8am-6 pm EST. Not Available [facility] [place] [facility] [address], [place], [address], 01/28/2021 04:08:53 01/27/20 21 01/26/2021 toxic ology [...] DO Not Attach Compendium, Do Not Delete/merge, [id number] 01/22/2021 16:00:40 01/27/20 21 01/26/2021 toxic ology [...] DO Not Attach Compendium, Do Not Delete/merge, [id number] 01/22/2021 16:00:40 02/10/20 21 02/09/2021 toxic ology scree n, urine Marijuana (THC) negati ve Not Available In-Office Order Internal Use Only DO Not Attach Compendium DO Not Attach Compendium, Do Not Delete/merge, [id number] 02/08/2021 11:56:16 02/10/20 21 02/09/2021 toxic ology [...] DO Not Attach Compendium, Do Not Delete/merge, [id number] 02/08/2021 11:56:16 02/10/20 21 02/09/2021 toxic ology scree n, urine Methamphetam ine (MET) negati ve Not Available In-Office Order Internal Use Only DO Not Attach Compendium DO Not Attach Compendium, Do Not Delete/merge, [id number] 02/08/2021 11:56:16 02/10/20 21 02/09/2021 toxic ology scree n, urine Barbiturates (BAR) negati ve Not Available In-Office Order Internal Use Only DO Not Attach Compendium DO Not Attach Compendium, Do Not Delete/merge, [id number] 02/08/2021 11:56:16 02/10/20 21 02/09/2021 toxic ology scree n, urine Benzodiazepi dang (BZO) negati ve Not Available In-Office Order Internal Use Only DO Not Attach Compendium DO Not Attach Compendium, Do Not Delete/merge, [id number] 02/08/2021 11:56:16 02/10/20 21 02/09/2021 toxic ology scree n, urine Methylenedio xymethamphet amine (MDMA ? 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 html Not Available [facility] [address] [place], [address] 02/17/2021 07:47:18 02/17/20 21 02/16/2021 toxic ology scree n, urine Marijuana (THC) negati ve Not Available In-Office Order Internal Use Only DO Not Attach Compendium DO Not Attach Compendium, Do Not Delete/merge, [id number] 02/16/2021 11:42:38 02/17/20 21 02/16/2021 toxic ology scree n, urine Cocaine (BARNEY 300) negati ve Not Available In-Office Order Internal Use Only DO Not Attach Compendium DO Not Attach Compendium, Do Not Delete/merge, [id number] 02/16/2021 11:42:38 02/17/20 21 02/16/2021 toxic ology scree n, urine Opiates (MOP) negati ve Not Available In-Office Order Internal Use Only DO Not Attach Compendium DO Not Attach Compendium, Do Not Delete/merge, [id number] 02/16/2021 11:42:38 02/17/20 21 02/16/2021 toxic ology [...] DO Not Attach Compendium, Do Not Delete/merge, [id number] 02/16/2021 11:42:38 02/17/20 21 02/16/2021 toxic ology scree n, urine Phencyclidin e (PCP) negati ve Not Available In-Office Order Internal Use Only DO Not Attach Compendium DO Not Attach Compendium, Do Not Delete/merge, [id number] 02/16/2021 11:42:38 02/17/20 21 02/16/2021 toxic ology scree n, urine Tricyclic Antidepressa nts (TCA) positi ve Not Available In-Office Order Internal Use Only DO Not Attach Compendium DO Not Attach Compendium, Do Not Delete/merge, [id number] 02/16/2021 11:42:38 02/24/2002/23/2021 SARS CoV 2 RNA (COVI D-19) , QL, 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 html Not Available [facility] [address] [place] [address], [id number] 03/03/2021 07:21:05 04/06/03/02/2021 toxic ology scree n, urine Marijuana (THC) negati ve Not Available In-Office Order Internal Use Only DO Not Attach Compendium DO Not Attach Compendium, Do Not Delete/merge, [id number] 03/02/2021 09:21:05 03/02/2003/02/2021 toxic ology scree n, urine Cocaine (BARNEY 300) negati ve Not Available In-Office Order Internal Use Only DO Not Attach Compendium DO Not Attach Compendium, Do Not Delete/merge, [id number] 03/02/2021 09:21:05 03/02/2003/02/2021 toxic ology scree n, urine Opiates (MOP) negati ve Not Available In-Office Order Internal Use Only DO Not Attach Compendium DO Not Attach Compendium, Do Not Delete/merge, [id number] 03/02/2021 09:21:05 03/02/2003/02/2021 toxic ology scree n, urine Amphetamine (AMP) negati ve Not Available In-Office Order Internal Use Only DO Not Attach Compendium DO Not Attach Compendium, Do Not Delete/merge, [id number] 03/02/2021 09:21:05 03/02/2003/02/2021 toxic ology scree n, urine Methamphetam ine (MET) negati ve Not Available In-Office Order Internal Use Only DO Not Attach Compendium DO Not Attach Compendium, Do Not Delete/merge, [id number] 03/02/2021 09:21:05 03/02/2003/02/2021 toxic ology scree n, [...] DO Not Attach Compendium, Do Not Delete/merge, [id number] 03/02/2021 09:21:05 03/02/20 21 03/02/2021 toxic ology scree n, urine Methadone (MTD) negati ve Not Available In-Office Order Internal Use Only DO Not Attach Compendium DO Not Attach Compendium, Do Not Delete/merge, [id number] 03/02/2021 09:21:05 03/02/20 21 03/02/2021 toxic ology scree n, urine Oxycodone (OXY) negati ve Not Available In-Office Order Internal Use Only DO Not Attach Compendium DO Not Attach Compendium, Do Not Delete/merge, [id number] 03/02/2021 09:21:05 03/02/20 21 03/02/2021 toxic ology scree n, urine Phencyclidin e (PCP) negati ve Not Available In-Office Order Internal Use Only DO Not Attach Compendium DO Not Attach Compendium, Do Not Delete/merge, [id number] 03/02/2021 09:21:05 03/02/20 21 03/02/2021 toxic ology scree n, urine Tricyclic Antidepressa nts (TCA) positi ve Not Available In-Office Order Internal Use Only DO Not Attach Compendium DO Not Attach Compendium, Do Not Delete/merge, [id number] 03/02/2021 09:21:05 02/17/20 21 02/16/2021 US, obste tric, [facility]ollo w-[facility] [address], [place], [address], 02/16/2021 15:37:18 Result Notes None recorded. Problems Name Problem SNOMED Code Status Onset Date Resolution Date Notes Provider Name and Address Organization Details Recorded Time Depressi ve disorder 62381034 Active 2017 also anxiety- -sees psychiat rist/on Lexapro. Level 2 anatomy USN ordered. TBF 02/23/21: TCA positive (on antidepr essants) . kt Nerissa [place]ard, [facility] 1 12:42:50 Anxiety 85379741 Active 2017 Jina bullard, [facility] 8 14:35:46 Drug addict 011000806 Active 2017 Jina bullard, [facility] 8 14:35:58 Pregnanc y 96386239 Completed 201903/08/2021 Nerissa bullard, [facility] 1 12:43:02 Long-ter m current use of antipsyc hotic medicati on [id number] 389796 Completed Currentl y using Qeutiapi ne and Prazosin . Level 2 USN schedule d. TBF LEVEL II USN wnl. Nerissa bullard, [facility] 12:42:50 Heroin dependen ce 476458557 Completed Hx of heroin use - not currentl y using. QTOX at [facility]. TBF 02/23/21: Opiod negative . [facility] Nerissa bullard, [facility] 12:42:50 Depressi ve disorder 45942645 Completed 2017 also anxiety- -sees psychiat rist/on Lexapro. Level 2 anatomy USN ordered. TBF 02/23/21: TCA positive (on antidepr essants) . ktb Nerissa bullard, [facility] 12:42:50 Group B Streptoc occus carrier [id number] 03 Completed GBS in urine. needs tx in labor. TBF Nerissa bullard, [facility] 12:42:50 Hepatiti s C carrier [id number] Completed Hep C + with IPG labs. Check viral load. GI referral . TBF Negative Hep A & CMP, 01/17. CSD [facility] 12:42:50 Benzodia zepine dependen ce 908536991 Completed Initial QTOX with benzo +. Review at next OB visit. Confirm meds. WIll need serial QTOX. TBF 02/23/21: Benzo negative . ktb Nerissa Rodesi null, [place] - [facility] 12:42:50 Cannabis abuse 85023965 Completed Qtox at 12 wks + for MJ, else negative --to review w/ pt at next visit. CSD 10/01/20: MJ+: REVIEWED AT LENGTH and she admits to smoking recreati onally - I encour ed her to QUIT. Will retest q/visit. ktb 10/01/20: MJ+. ktb 02/23/21: MJ negative . ktb Nerissa Jessica null, [place] - [facility] 12:42:50 Problem Notes None recorded. Procedures Surgical History Date Name Laterality Status Provider Name and Address Organization Details Recorded Time 04/14/2021 T1D-ENIM (0503F) completed SAM TEE DO [address] [facility], [place], [address], [facility] 04/14/2021 15:36:26 02/09/2021 Y2A-QXI completed Maria Teresa Valdez [facility] 02/09/2021 09:24:17 12/07/2020 G8U-LCI completed Maria Teresa Valdez [facility] 12/07/2020 08:55:37 11/02/2020 V8W-VNQ completed Maria Teresa Valdez [facility] 11/02/2020 09:57:04 10/01/2020 M2M-RJQ completed Nerissa Lopez [facility] 09/30/2020 13:59:03 08/06/2020 P4P-OB (0500F) completed SAM TEE DO [address] [facility], [place], [address], [facility] 08/06/2020 12:16:29 11/16/2018 R7H-LCALB completed ALMA DELIA Geneva MCPHERSON APRN [address] [facility], [address] [place] [address], [place], [address], [place] - [facility] 11/16/2018 10:52:07 11/16/2018 F2Y-NCV completed ALMA DELIA [place] MCPHERSON APRN [address] [facility], [address] [place] [address], [place], [address], [place] - [facility] 11/16/2018 10:52:05 Imaging Results Imaging Date Name Status LastModified by Organiz ation Details LastModified Time 02/16/2021 US, obstetric, follow-up completed [facility] [address] [place], [address], 02/16/2021 15:37:18 Procedure Notes None recorded. Medical [...] Details Last Updated DateTime 02/23/2021 171.45 cm 282813.01 62 g 118 mm[Hg] 74 mm[Hg] Paola Lundberg [facility] 02/23/2021 11:29:35 Date Recorded Body weight Body mass index (BMI) Percentile per age and sex Body mass index (BMI) Body height Systolic blood pressure Diastolic blood pressure Systolic blood pressure Diastolic blood pressure Provider Name and Address Organization Details Last Updated DateTime 1 061377. 62595 g 98 % 41.4 kg/m2 171.45 cm 140 mm[Hg] 90 mm[Hg] 134 mm[Hg] 90 mm[Hg] Maria Teresa Valdez [facility] 09:54:59 Date Recorded Body height Body mass index (BMI) Percentile per age and sex Body mass index (BMI) Body weight Systolic blood pressure Diastolic blood pressure Provider Name and Address Organization Details Last Updated DateTime 1 171.45 cm 97 % 36.9 kg/m2 986180. 58 g 128 mm[Hg] 90 mm[Hg] Nika Irvin [facility] 1 15:17:11 Date Recorded Body height Body mass index (BMI) Body mass index (BMI) Percentile per age and sex Body weight Systolic blood pressure Diastolic blood pressure Provider Name and Address Organization Details Last Updated DateTime 1 171.45 cm 36.1 kg/m2 97 % 125086. 61 g 128 mm[Hg] 66 mm[Hg] Nika Irvin [facility] 1 10:14:56 Date Recorded Body height Body mass index (BMI) Body mass index (BMI) Percentile per age and sex Body weight Systolic blood pressure Diastolic blood pressure Provider Name and Address Organization Details Last Updated DateTime 1 171.45 cm 36.9 kg/m2 97 % 128781. 58 g 122 mm[Hg] 68 mm[Hg] Nerissa Lopez [facility] 14:47:09 Social History Question Answer Notes LastModified by Organizat ion Details LastModified Time Tobacco Smoking Status Smoker, Current Status Unknown vapes daily but trying to cut back 08/06/2020 Bianca bullard [facility] 10/01/2020 14:50:43 What Is Your Level [...] Or Lived In A Zika-affected Area? No [email or web address] Information not available 07/31/2020 Sex: Unknown Functional [...] Other N *No Diseases or Conditions N Blood clots N Breast Cancer N Colon cancer N Benign breast disease N Lung Disease N Depression Y Defects or Inherited Disease N Anesthesia Complications N Headaches/Migraines N Have you ever been on isolation N Anxiety Disorder Y HSV N Arthritis N Infertility N Interstitial Cystitis N Abnormal pap N Acid Reflux (GERD) N Cancer N Stroke N Endometriosis N Fibromyalgia N Spina Bifida N HIV N Heart Problems N Sexual Dysfunction N Autoimmune disorder N Thyroid Problems N Kidney or Bladder Problems N GI Problems N Eating Disorder [...] completed Maria Teresa [place] null, [place] - [facility] 11/02/2020 09:56:09 Tdap 1 completed Maria Teresa [place], [place] - [facility] 01/04/2021 09:56:42 Past Encounters Encounter ID Performer Location Encounter Start Date Encounter Closed Date Diagnosis/Indication Diagnosis SNOMED-CT Code Diagnosis ICD10 Code Diagnosis Note [id number] ALMA DELIA MCPHERSON APRN [facility] [address] [place] [address] 12/20/2017 14:00:45 12/21/2017 11:52:35 Venereal disease screening 155087334 Z11.3 Pt diagnosed w/chlamydi a three weeks ago/needs KAIT Gynecologi c examination 02450986 Z01.419 Well woman exam Rev SBE Pap [...] diet/exerc ise F/up 1 year/prn Contraception care 37671 5753 Z30.40 Pt on Tri-Sammie- -wants to change contracept ion Disc all options: Patch/Ring /Depo/LARC Wants to try Nuvaring Advised pt that oxcarbazep ine interacts with all forms of hormonal contracept ion--ok to go on Nuvaring for cycle control but needs to use backup to prevent for now Pt to advise Consent signed [id number] LARISSA CHICAS DO [facility] [address] [place] [address] 05/10/2018 14:28:26 05/11/2018 16:07:57 Contraception care 506041562 Z30.40 Patient due for removal of Nuvaring [...] in the next week to call for [facility]. [id number] ALMA DELIA MCPHERSON APRN G5 [address] [place] [address] 11/16/2018 10:07:16 11/16/2018 11:52:48 Vaginitis 75337078 N76.0 Venereal d isease screening 436734303 Z11.3 Pain in pelvis 44175419 R10.2 Pt w/pelvic pain x 6+ months [...] were answered to the patient's satisfacti on. [id number] LARISSA CHICAS DO G[address] [place] [address] 12/28/2018 10:34:30 12/28/2018 15:03:33 Contraception care 342904669 Z30.40 Patient wishes to continue Nuvaring, risks/bene fits/alter natives reviewed. Consent signed. Will prescribe refills x one year. 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 Pap deferred due to patient age. GC/CL and Affirm sent today. reviewed self breast exam. CA Risk Assessment reviewed at length - normal risk. Return for annual in one year. Pain in pelvis 27733915 R10.2 Patient evaluated at office visit in [...] etc advised to call. Blood in urine 91398895 R31.9 Patient notes intermitte nt dysuria and frequency. Will send UA, culture as well as GC/CL for evaluation . Vaginitis 43607386 N76.0 Female pel [place] inflammatory disease 873053261 N73.9 See pelvic pain below Venereal d isease screening 318110279 Z11.3 [id number] SAM TEE DO [facility] [address] [place] [address] 08/06/2020 10:02:18 08/10/2020 12:29:19 Routine care 249209458 Z34.90 Patient in the office for her initial OB visit. Doing well so far. Reviewed early issues and discussed precaution s including cramping, bleeding, discharge, morning sickness. Denies headache, fever, chills, cp, sob, bleeding, severe N/V. Occasional cramping. Reviewed [facility] practice policies and procedures . Reviewed male providers, importance of compliance with care, delivery and surgery at 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 TBF Gestation period, 8 weeks 95802023 Z3A.08 Depression screening 171 573505 Z13.31 Negative depression screening at [facility]S AT [facility]. [id number] DANNA CASTELLANOS MD [facility]5 [address] [place] [address] 09/03/2020 11:12:40 09/04/2020 12:02:54 Gestation period, 12 weeks 75484665 Z3A.12 Routine an tenatal care 792718698 Z34.01 Pt is still waiting for dr to call regarding + hep c results. Pt has some n/vergara, no swelling or vomiting. CC STAFF COUNSEL Pt denies c/o except slight backaches. Reviewed all results to date. Pt is awaiting call for GI eval, we will again try to contact GI office today. Pt aware of scheduled NT USN, intends to complete 1st tri screening today. RTO 4 wks History of drug abuse 37 4024506 F19.11 [id number] AMERICA CANSECO, DO [facility] [address] [place] [place] [address] 10/01/2020 14:50:31 10/05/2020 13:33:43 Routine care 278702479 Z34.92 Urinary symptoms 6178285 08 R39.9 Gestation period, 16 weeks 05420942 Z3A.16 [id number] LARISSA CHICAS DO [facility] [employer] [place] [address] 11/02/2020 09:44:04 11/04/2020 16:11:40 Routine care 168509278 Z34.92 Doing well, no complaints . s/p [...] yet done this, planning to go today. [id number] DANNA CASTELLANOS MD [facility] [address] [facility] [address] 12/07/2020 08:44:26 12/08/2020 08:47:50 Normal 63637859 Z34.03 Z34.83 Z34.93 Headaches: Occ Nausea: No Vomiting: No movement: Yes Contractio ns: No Pt aware needs to go for 28 week bld work due 12/23/2020 at [facility]. Pt given info regarding cord bld and [...] labs. RTO 4 wks Depression screening 171 937900 Z13.32 Completed, results negative Routine an tenatal care [id number] Z34.02 Gestation period, 25 weeks 15489973 Z3A.25 [id number] DANNA CASTELLANOS MD WHG[address] [facility] [address] 01/04/2021 09:09:22 01/04/2021 14:02:55 Routine care [id number] Z34.02 Headaches: No Nausea: No Vomiting: No movement: Yes Contractio ns: No Qtoxo in office today. Tdap given today Pt denies c/o, notes + FM & no ctxns. Reviewed results to date. Pt awaiting review o f recent lab eval w/ GI. Office qtox negative save for TCA. RTO 3 Gestation period, 29 weeks 10991115 Z3A.29 [id number] WHG5 [address] [place] [address] 01/26/2021 10:30:56 01/27/2021 08:38:56 Routine care [id number] Z34.90 Routine OB visit. Size = date. FHR reassuring . Denies headache, fever, chills, cp, sob. No regular cramping or contractio ns. Sun, bug, Zika, travel precaution s all reviewed. COVID, PTL, and FM precaution s all discussed. EFW USN at 36 wga scheduled. QTOX today. GBS +, no culture needed at 36 wga. RTO in 2 weeks. TBF Gestation period, 32 weeks 7561992 Z3A.32 [id number] SAM TEE , DO [facility] [place] [address] 02/09/2021 09:16:45 02/10/2021 12:04:59 Routine care 520592660 Z34.90 Routine OB visit. Size = date. FHR reassuring . Denies headache, fever, chills, cp, sob. No regular cramping or contractio ns. Sun, bug, Zika, travel precaution s all reviewed. COVID, PTL, and FM precaution s all discussed. EFW USN upcoming. GBS +, no culture at 36 wga needed. RTO in 1 week. TBF Gestation period, 34 weeks 26235580 Z3A.34 [id number] MICHELLE SOLO MD G5 [address] [place] [address] 02/16/2021 14:21:10 02/18/2021 13:34:55 Viral screening 512716500 Z11.59 Routine an tenatal care 470203922 Z34.93 Depression screening 171 236319 Z13.32 ? B ehavioral health screening completed and reviewed with patient. Negative findings. Gestation period, 35 weeks 11375299 Z3A.35 [id number] AMERICA CANSECO, DO G5 [address] [place] [address] 02/23/2021 11:08:41 02/24/2021 11:28:04 Routine care 203849575 Z34.92 Viral screening 92853621 4 Z11.52 Gestation period, 36 weeks 07558868 Z3A.36 [id number] DANNA CASTELLANOS MD G5 [address] [place] [address] 03/02/2021 09:09:31 03/04/2021 09:29:56 Viral screening 258658602 Z11.59 Routine an tenatal care 848719851 Z34.02 Headaches: Yes Migraine now took tylenol [...] further eval pp. Gestation period, 37 weeks 37256171 Z3A.37 [id number] AMERICA CANSECO DO G5 [address] [place] [address] 03/11/2021 15:12:09 03/12/2021 10:49:38 Hypertension complicating , childbirth and the puerperium 235255771 O16.9 Pt readmitted to [facility] on 03/09 with elevated BPs, no rpt [...] to recheck BP while on both meds. [id number] SAM TEE DO G[address] [place] [address] 03/18/2021 10:11:48 03/19/2021 13:06:57 Abnormal blood pressure 18019338 Z01.31 Pt in office for BP check. [...] e with this plan. All questions answered. [id number] SAM TEE DO G5 [address] [place] [address] 04/14/2021 14:43:48 04/15/2021 15:53:40 care 847470853 Z39.2 Patient in the office for routine [...] visual changes, CP, SOB. Depression screening 171 209099 Z13.32 negative depression screening Contraception care 8156912 1925 Z30.40 Reviewed risks of OCPs. Alternativ e [...] 2 [place]ID - [place] Danica Haro [id number] Danica Perretyemi 02/23/2021 1 [place] [id number] Amada Perretta [id number] Danica Perretta 03/02/2021 2 MEDICAID - [place] (MEDICAID) Danica Haro [id number] Danica Perretta 03/02/2021 1 [place] [id number] Amdaa Perretta [id number] Danica Perretta 03/11/2021 2 MEDICAID - [place] (MEDICAID) Danica Haro [id number] Danica Perretta 03/11/2021 1 [place] [id number] Amada Perretta [id number] Danica Perretta 03/18/2021 2 [place]ICAID - [place] (MEDICAID) Danica Haro [id number] Danica Perretta 03/18/2021 1 [place] [id number] Amada Perretta [id number] Danica Perretta 04/14/2021 2 [place]ICAID - [place] (MEDICAID) Danica Haro [id number] Danica Perretta 04/14/2021 1 [place] [id number] Amada Perretta [id number] Danica Haro Notes Date Note Type Note Provider Name and Address Organization Details Recorded Time 03/11/2021 text/html Pt readmitted to [facility] on 03/09 with elevated BPs, no rpt MgSO4 given. Dc home 03/10 with Nifedipine 60 mg XR. Feels well. Denies VERGARA, Visual changes, RUQ Piian, N/V. AMERICA CANSECO, DO [address] [facility], [address] Floor, [place], [address], [place] [facility] 03/11/2021 15:45:15 03/18/2021 text/html NO headache or visual changes. NO RUQ pain. SAM TEE DO [address] [facility], [address] [place] [address], [place], [address], [facility] 03/18/2021 10:25:52 04/14/2021 text/html 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 ktb Problem Name Start Date End Date Resolution Snomed Code Not e Cannabis abuse [id number] Qtox at 12 wks + for MJ, else negative--to review w/ pt at next visit. CSD10/01/20: MJ+: REVIEWED AT LENGTH and she admits to smoking recreationally - I encouraged her to QUIT. Will retest q/visit. ktb112/01/19: MJ+. kt02/23/21: MJ negative. ktb Group B Streptococcus carrier [id number] GBS in urine. needs tx in labor. TBF Long-term current use of antipsychotic medication [id number] Currently using Qeutiapine and Prazosin. Level 2 USN scheduled. TBFLEVEL II USN wnl. Heroin dependence [id number] Hx of heroin use - not currently using. QTOX at IP[facility]. TB02/23/21: Opiod negative. ktb Depressive disorder 12/20/2017 11949327 also anxiety--sees psychiatrist/on Lexapro. Level 2 anatomy USN ordered. TB02/23/21: TCA positive (on antidepressants) . ktb Hepatitis C carrier 159966570 Hep C + with IPG labs. Check viral load. GI referral. TBF Negative Hep A & CMP, 01/17. CSD Benzodiazepine dependence [id number] Initial QTOX with benzo +. Review at [...] Confirmed By Final Trevor Confirmed Date Final Treovr Date Ultra Sound Latest Days Gestation 0 03/17/20 21 0 Pre-gutierrez Flowsheet Flowsheet Date 08/06/2020 Cooley Score Blood Edema Fundus Height Fundus Units Glucose Ketones Leukocytes Nitrite Labor Signs Protein Cervic Dilation Cervic Effacement Cervic Station none Other (see comments ) 0cm Type Weight in lbs Pre/Post Dialysis Refused With clothes 172.925751025684 BP Diastolic BP Location Tested BP Systolic [...] sob, bleeding, severe N/V. Occasional cramping. Reviewed [facility] practice policies and procedures. Reviewed male providers, importance of compliance with care, delivery and surgery at 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, sun, bug, zika, and travel [...] Weight in lbs Pre/Post Dialysis Refused Weight 179.018492502782 BP Diastolic BP Location Tested BP Systolic [...] Weight in lbs Pre/Post Dialysis Refused Weight 179.013783510301 BP Diastolic BP Location Tested BP Systolic [...] Weight in lbs Pre/Post Dialysis Refused Weight 190.149952584072 BP Diastolic BP Location Tested BP Systolic [...] Weight in lbs Pre/Post Dialysis Refused Weight 214.755759757023 BP Diastolic BP Location Tested BP Systolic BP Type 60 116 Fetus Heart Rate Present A 147 Fetus Movement A Yes Comments Headaches: OccNausea: NoVomi ting: NoFetal movement: YesContractions: NoPt aware needs to go for 28 week bld work due 12/23/2020 at [facility]. Pt given info regarding cord bld and [...] Weight in lbs Pre/Post Dialysis Refused Weight 225.642510248624 BP Diastolic BP Location Tested BP Systolic [...] Weight in lbs Pre/Post Dialysis Refused Weight 239.110492010690 BP Diastolic BP Location Tested BP Systolic [...] Weight in lbs Pre/Post Dialysis Refused Weight 248.722412070005 BP Diastolic BP Location Tested BP Systolic [...] Weight in lbs Pre/Post Dialysis Refused Weight 258.453124690694 BP Diastolic BP Location Tested BP Systolic [...] Weight in lbs Pre/Post Dialysis Refused Weight 260.203268431444 BP Diastolic BP Location Tested BP Systolic [...] Weight in lbs Pre/Post Dialysis Refused Weight 268.062362710670 BP Diastolic BP Location Tested BP Systolic BP Type 90 140 sitting 90 134 sitting Fetus Heart Rate Present A 125 Fetus Movement A Yes Comments Headaches: Yes Migraine now took tylenol not effective took excedrin migraine Nausea: now due to migraineVomiting: NoFetal movement: YesContractions: Yes/[place]caraw[place] hicksCovid testing in office.Pt reports occas ctxns, [...] At Estimated Date of Delivery false Thalassemia ([place]er, Yoruba, Mediterranean, Or Background): MCV < 80 false pt's father? Neural Tube Defect (Meningom yelocele, Spina Bifida, Or Anencephaly) false Congenital Heart Defect false Down Syndrome false Edward-Sachs (eg, Zoroastrian, Cajun , Uzbek-Bexar) false Dejan Disease false Sickle Cell Disease [...] Other Infection History false Familial Dysautonomia (Ashkenazi Zoroastrian) false Spinal Muscular Atrophy false Parkinson Disease true maternal great aunt History of HIV false History of Hepatitis false Prior GBS-infected child false Plans and Education First Trimester Discussed Date Discussion Item Discussion Note Discuss ed By 08/06/2020 Anticipated course of care triebzwnpeh76 08/06/2020 Alcohol qdmmiohbpag30 08/06/2020 Intimate partner violence tf bhgifsawg73 08/06/2020 Environmental/work hazards t rggcwhydbq42 08/06/2020 Screening for aneuploidy tfi 08/06/2020 Nutrition counseling ; special diet; dietary precautions (mercury, listeriosis) 08/06/2020 Childbirth classes/hospital facilities 08/06/2020 HIV and other routine tests 08/06/2020 Risk factors identif ied by history 08/06/2020 Weight gain counseling 08/06/2020 Exercise 08/06/2020 Teratogens 08/06/2020 Use of any medicatio ns (including supplements, vitamins, herbs, or OTC drugs) ohjsbrcykcz24 08/06/2020 zrnhhhajcdr90 08/06/2020 Sexual activity gerald1 4 08/06/2020 Tobacco/smoking cess ation counseling (ask, advise, assess, assist, and arrange) 08/06/2020 Illicit/recreational drugs t dzxkxuroqw81 08/06/2020 Dental care qwrdfdwowez59 08/06/2020 Travel ngrxydrpnng63 08/06/2020 Seat belt use rjlegxpysqe16 08/06/2020 Indications for ultrasonography mwohhtcdoio18 08/06/2020 Avoidance of saunas or hot tubs ddwssjvucwz77 08/06/2020 Toxoplasmosis precau tions (cats/raw meat) Second [...] screening, jaundice, SIDS/safe sleeping position, car seat) yivrpaukcdc37 02/09/2021 Postterm counseling tfij luis ald14 01/26/2021 movement monitoring tf yxrzjkbij25 02/23/2021 barbara01/26/2021 Labor signs idxiebtuzqb91 01/26/2021 Family medical leave or disability forms 02/23/2021 Signs and symptoms of preeclampsia barbara01/26/2021 Discussed and offered TDAP t faypiqirso99 Delivery Information Delivery Date Delivery Type Labor Anesthesia Weeks Gestation Incision Type Labor Labor Length Hrs Delivered By Post Complications Tubal Sterilization Discharge Date Comments [facility] 38 Larissa Chicas DO 03/05/2021 Discharge Information Feeding Method Contraceptive Method Maternal HG B and HCT Levels Bottle
--- OUTSIDE RECORDS SUMMARY | 2025-01-21 15:33 | XMS_ITS | Clinical Summary ---
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 4 Active ferrous sulfate (FEOSOL) 325 mg (65 mg iron) tablet Take 1 tablet (325 mg total) by mouth Every other day. Active gabapentin (NEURONTIN) 300 mg capsule Take 1 capsule (300 mg total) by mouth at bedtime. 4 Active sertraline (ZOLOFT) 50 mg tablet Take 1 tablet (50 mg total) by mouth daily. 4 Active tretinoin (RETIN-A) 0.025 % cream APPLY PEA-SIZED AMOUNT TO FACE AT BEDTIME , START EVERY OTHER NIGHT AND INCREASE TOLERATED 4 Active prazosin (MINIPRESS) 1 mg capsule Active benztropine (COGENTIN) 0.5 mg tablet Take 1 tablet (0.5 mg total) by mouth every 12 (twelve) hours. 4 Active albuterol sulfate 90 mcg/actuation HFA aerosol inhalerIndicati ons:Acute cough Inhale 2 puffs into the lungs every 6 (six) hours as needed for wheezing. 18 g 5 Active benzonatate (TESSALON) 200 mg capsuleIndicati ons:Acute cough Take 1 capsule (200 mg total) by mouth 3 (three) times daily as needed for cough for up to 5 days. 15 capsule 5 12/30/19 25 fluticasone propionate (FLONASE) 50 mcg/actuation nasal sprayIndication s:Acute cough Use 2 sprays in each nostril daily. 16 g 5 01/08/20 25 Active Problems Problem Noted Date Diagnosed Date Acute cough 12/25/2024 COVID-19 12/02/2024 Fever, unspecified fever cause 12/02/2024 Encounters Date Type Department Care Team Description 12/25/2024 5:45 PM EST Office Visit [facility] [address] [place] [address] Kendall Rousseau PA Acute cough (Primary Dx) 12/02/2024 6:00 PM EST Office [facility] [address] [address] Kendall Rousseau PA COVID-19 (Primary Dx); Fever, unspecified fever cause from Last 3 Months Immunizations Name Administration Dates Next Due DTaP, unspecified formulation 04/30/2004 ,10/29/2001,2000,09/12,2000 HPV, quadrivalent 11/16/2011,07/15/2011,05/13/20 11 Hep B, adolescent or pediatric 03/29/2018,2017,11/09/2017 Hep B, unspecified formulation 7,02/19/2001,2000,04/29 Hib, unspecified formulation 09/04/2001, 2000,2000,07/10 Influenza, injectable, quadr ivalent, preservative free 09/18/2020,11/09/2017,09/18/2015,12/03 Influenza, split virus, triv alent, Preservative Free 11/16/2011 MMR 04/30/2004,09/04/2001 Meningococcal B, OMV (Bexsero) 08/24/2017,2016 Meningococcal MCV4P - Menactra 06/23/2016,2010 Pneumococcal conjugate PCV 7 09/04/2001,05/18/20,02/19/2001 Polio (IPV) 04/30/2004, 1,2000,07/10 Tdap 05/13/2011 Varicella 06/03/2008,05/18/2001 Family History Relation Name Status Comments Father Alive Mother Alive Social History Tobacco Use Types Packs/Day Years Used Date Smoking Tobacco: Never Smokeless Tobacco: Never Tobacco Cessation:Counseling Given: Not Answered Alcohol Use Standard Drinks/Week Comments Never 0 (1 standard drink = 0.6 oz pur e alcohol) Comments No Sex and Gender Information Value Date Recorded Sex Assigned at Not on file Legal Sex Female 5:36 PM EDT Gender Identity Not on file Sexual Orientation Not on file Last Filed Vital Signs Vital Sign Reading [...] Mass Index 38.01 12/25/2024 6:34 PM EST Plan of Treatment Health Maintenance Due Date Last Done Comments Chlamydia screening 2017 Hepatitis C screening 2018 Cervical cancer screening 2021 DTaP/TDaP Vaccines (7 - Td or Tdap) 05/13/2021 05/13/2011, 04/30/2004, 10/29/2001, Additional history exists Tetanus adult (Td q 10,TDAP once) 05/13/2021 05/13/2011 Influenza vaccine 06/27/2024 11/25/2022, , 11/09/2017, Additional history exists Covid-19 vaccine series ( - season) 2024 RSV Discussion (1 - 1-dose 75+ series) 2075 HIB Vaccines Completed 09/04/2001, 10/27, 2000, Additional history exists Pneumococcal Vaccine (2 - 49 years) Completed 09/04/2001, 05/18/2001, 02/19/2001 IPV Vaccines Completed 04/30/2004, 01/2001, 2000, Additional history exists MMR Vaccines Completed 04/30/2004, 09/04/2001 Varicella Vaccines Completed 06/03/2008, 05/18/2001 HPV vaccine series Completed 11/16/2011, 0 07/15/2011, 05/13/2011 Meningococcal Vaccine Completed 06/23/2016, 011 HIV screening Completed 11/06/2017 Hepatitis B vaccine series Completed 03/29, 12/11/2017, 11/09/2017, Additional history exists Hepatitis A Vaccines Aged Out No long er eligible based on patient's age to complete this topic Rotavirus Vaccines Aged Out No longer eligible based on patient's age to complete this topic Procedures Procedure Name Priority Date/Time Associated Diagnosis Comments POCT SARS COV-2 (COVID-19) PCR/INFLUENZA A+B ([facility]) Routine 12/25/2024 6:57 PM EST Acute cough POCT SARS COV-2 (COVID-19) PCR/INFLUENZA A+B ([facility]) Routine 12/02/2024 6:54 PM EST Fever, unspecified fever cause from Last 3 Months Results * POCT SARS COV-2 (COVID-19) PCR/Influenza A+B (In-Clinic) (12/25/2024 6:57 PM EST) Only the most recent of2 resultswithin the time period is included. POC SARS-CoV-2 (COVID-19) PCR Not Detected Not Detected POC Influenza A Not Detected Not Detected POC Influenza B Not Detected Not Detected POC Kit Lot Number [id number] POC Expiration Date 04/26/2026 Nasal Swab 12/25/2024 6:57 PM EST Kendall KASPER POINT OF CARE ORDERS W/FUTURE F inal Result from Last 3 Months Insurance [id number] MEDICAID [id number] MEDICAID [id number] MEDICAID Care Teams Perl Programmer Relationship Specialty Start Date End Date Pcp, Does Not Have A PCP - General 12/02/24
== END 2025-01-21 12:48 | disposition home or self-care (01) ==
LOC: HO.WFDLDS 12:47
PROVIDERS: Visit Provider Nurse Practitioner Family
DX: Z00.00 Encounter for general adult medical examination without abnormal findings (principal); E66.01 Morbid (severe) obesity due to excess calories
CPT/HCPCS: 36415; 80053; 80061; 82043; 82306; 82570; 82607; 82746; 83036; 84443

== ENCOUNTER 2025-02-14 09:12 | Outpatient (AMB) | payer OTHER, SELFPAY ==
--- NOTE | 2025-02-14 09:15 | A.OFFPC_ITS ---
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 Required: No Allergies No Known Allergies Allergy (Verified 02/14/25 09:19) Tobacco use date assessed: 02/14/25 Dental Screening Dental Screen Date: 02/14/25 Did you have a dental visit in the last 12 months?: Yes Did you have a dental problem in the last 6 months where you did not have access to dental care?: No Was dental information given to patient?: Patient has dentist HPI HPI Comments History of Present Illness Details 24 y/o F with obesity, bipolar, MDD, ANNAMARIA , Hep c cured, GERD, chronic abd pain, Vape nicotine, Heroin abuse in remission Surgery wisdom teeth removal family hx: paternal uncle pancreatic ca (), no DM or other cancers, MGM + CAD Social: 1 dtr alive and well, age 4. Lives w/ dtr. 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 - She has a documented history of Bipola r Disorder, Major Depressive Disorder, and Generalized Anxiety Disorder. - The patient reports a significant decl ine in mental health, indicating feelings that it has plummeted and gone down the drain. - She has experienced suicidal thoughts but insists she is safe, driven by the responsibility towards her daughter. - Due to discontinued insurance until Ap , she is unable to access psychiatric support and seeks urgent care. - She received no prior notice before he r insurance was terminated, impacting her mental health management. - The patient is seeking inpatient care placement due to the severity of her condition. Physical Exam General: Well developed, well nourished, in no acute distress. Appears stated age. Head: Normocephalic, atraumatic. Eyes: Pupils are equal, round and reactive to light and accommodation. Conjunctivae are clear. Vision grossly normal. Patient wears contact lenses. Psych: Normal eye contact, affect and mood appropriate, and normal interactions. Patient is alert and appropriate to context. Discussion Notes During today's visit, we discussed the patient's current mental health status and her urgent need for inpatient care due to the deterioration of her condition. The patient expressed experiencing increased suicidal thoughts despite feeling currently safe. Given her lack of insurance coverage until February 25, traditional outpatient support options are limited. Our community navigator is coordinating with [facility] to facilitate an immediate psychiatric evaluation and potential inpatient placement. This approach addresses the urgency of her situation without the risk of insurance- related care denial. I informed the patient that the psychiatric team would handle FMLA submissions once she is admitted, ensuring her time out of work is medically justified. Assessment and Plan 1. Bipolar Disorder, Major Depressive Di sorder, Generalized Anxiety Disorder: The patient experiences a significant decline in mental health. Due to urgent care needs and lack of insurance, immediate referral to [facility] is arranged for evaluation and possible inpatient treatment. FMLA will be filed by the psychiatric team upon patient admission to ensure recovery time. Patient Instructions - Proceed immediately to the [facility] for psychiatric evaluation. - Inform the staff about the referral fr primary care in coordination with Mickie Alexander for inpatient assessment. - Keep track of mental health status and return to care if any worsening occurs. Consent Consent for the referral and ensuing inpatient evaluation at [facility] was obtained from the patient. We reviewed the necessity due to her current mental health status and lack of insurance coverage impacting outpatient services. The patient agreed to proceed with the coordinated plan urgently for her well-being. Patient was informed and verbally consented to the use of an ambient scribe for clinic note documentation during this visit. Total time spent caring for the patient today was 30 minutes. This includes time spent before the visit reviewing the chart, time spent during the visit, and time spent after the visit on documentation, reviewing laboratory results, diagnostic imaging, medications, performing a medically necessary evaluation, counseling on diagnoses, care coordination, ordering appropriate tests, ordering appropriate medications, review of tests performed by other providers, reporting test results with the patient, communication with other healthcare providers. [facility] Medical History (Updated 02/14/25 @ 09:42 by Teresa Phillips, [facility]) Acne Diarrhea Drug abuse GERD (gastroesophageal reflux disease) History of heroin abuse Migraines Stomachache Surgical History (Updated 01/20/25 @ 11:16 by Treva Amado MA) [place] teeth extracted Family History (Updated 01/20/25 @ 11:13 by Treva Amado MA) Mother HTN (hypertension) Cardiovascular disease Alcoholism Father HTN (hypertension) Cardiovascular disease Alcoholism Maternal Grandmother High cholesterol Cardiovascular disease Alcoholism Social History (Updated 01/20/25 @ 11:12 by Treva Amado MA) Household Members: Children Both parents involved: No Caregiver staying overnight: No Housing: Apartment Are you a primary manager intensive care unit to a significant other at home: Yes Do you presently have visiting nurse or other home services: No 75 years or older and lives alone: No Alcohol intake: never Patient Tobacco Use Status: Never used Tobacco e-Cigarette/Vaping Use: Currently Using Second Hand Smoke Exposure: No service: No Current occupational status: employed 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 1. Little interest or pleasure in doing things: several days 2. Feeling down, depressed, or hopeless: several days 3. Trouble falling or staying asleep, or sleeping too much: more than half the days 4. Feeling tired or having little energy: more than half the days 5. Poor appetite or overeating: nearly every day 6. Feeling bad about yourself - or that you are a failure or have let yourself or your family down: nearly every day 7. Trouble concentrating on things, such as reading the newspaper or watching television: not at all 8. Moving or speaking so slowly that other people could have noticed. Or the opposite - being so fidgety or restless that you have been moving around a lot more than usual: not at all 9. Thoughts that you would be better off or of hurting yourself in some way: not at all Total score: 12 Depression Screening Interpretation: Positive Depression Screening Follow-up: Community Mental Health Worker F/U Depression Screening Done: Yes 84796 - PHQ-9 Billing: Yes Source: Developed by Drs. Conrad Steel, Gaetano Rock and colleagues, with an educational jeison from [employer]. Thrive Questionnaire Date Thrive assessed: 02/14/25 I am a: Patient What is your living situation today?: I have a steady place to live Within the past 12 months, did the food you bought not last and you didn't have the money to get more?: Never true Within the past 12 months, did you worry whether your food would run out before you got money to buy more?: Never true Do you have trouble paying for medicines?: No Do you have trouble getting transportation to medical appointments?: Yes Do you have trouble paying your heating and electricity bill?: No Do you have trouble taking care of your child, family member or friend?: No Do you have trouble with day-to-day activities such as bathing, preparing meals, shopping, managing finances, etc.?: No Are you currently unemployed and looking for a job?: No Are you interested in more education?: Yes Please select the resources that you would like help with: None Currently or been in a relationship where the following occur: No concerns reported THRIVE Score: 1 ANNAMARIA-7 AMB Questionnaire ANNAMARIA-7 Date ANNAMARIA - 7 assessed: 02/14/25 Feeling nervous, anxious, or on edge: 3 = Nearly every day Not being able to stop or control worryin = Nearly every day Worrying too much about different things: 3 = Nearly every day Trouble relaxin = More than half the days Being so restless that it is hard to sit still: 0 = Not at all Becoming easily annoyed or irritable: 0 = Not at all Feeling afraid as if something awful might happen: 3 = Nearly every day Total ANNAMARIA-7 score (0-4 normal; 5-9 mild; 10-14 moderate; 15-21 severe): 14 Source: Developed by Drs. Conrad Steel, Gaetano Rock and colleagues, with an educational jeison from [employer]. ANNAMARIA-7 Assessment Billing ANNAMARIA-7 Assessment Tool: ANNAMARIA-7 Assessment 94195 Physical exam (Primary Care) Vital Signs: Last Vital Signs Temp 98.4 F 02/14/25 09:20 Pulse 66 02/14/25 09:20 Resp 12 02/14/25 09:20 BP 102/70 02/14/25 09:20 Pulse Ox 100 02/14/25 09:20 Oxygen Delivery Method Room Air 02/14/25 09:20 BMI result Body Mass Index 39.6 Tobacco/Smoking Status: Tobacco use Status Tobacco use date assessed 02/14/25 02/14/25 09:22 Patient Tobacco Use Status Never used Tobacco 02/14/25 09:16 e-Cigarette/Vaping Use Currently Using 02/14/25 09:16 PHQ-9: PHQ-9 Score PHQ-9: Total score 12 02/14/25 09:23 Depression Screening Interpretation: Positive Depression Screening Follow-up: Community Mental Health Worker F/U Thrive Assessment: Date of Thrive Assessment Date Thrive assessed 02/14/25 02/14/25 09:16 Currently or been in a relationship where the following occur: No concerns reported Coding Level of Care Code Est Pt Level 4 (39948) Complex EM visit Add On G2211 Diagnoses Suicide ideation R45.851 ANNAMARIA (generalized anxiety disorder) F41.1 Moderate episode of recurrent major depressive disorder F33.1 Major depression episode severity: moderate 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 F11.11 Bipolar 1 disorder F31.9 Encounter for screening involving social determinants of health (SDoH) Z13.9 Additional Codes ANNAMARIA-7 Assessment Billing - ANNAMARIA-7 Assessment Tool: ANNAMARIA-7 Assessment 13035 ([id number]) PHQ-9 - 45862 - PHQ-9 Billing: Yes ([id number]) Assessment & Plan Assessment & Plan (1) Suicide ideation: Code(s): R45.851 - Suicidal ideations Category: Medical (2) ANNAMARIA (generalized anxiety disorder): Code(s): F41.1 - Generalized anxiety disorder Category: Medical (3) MDD (major depressive disorder), recurrent episode: Code(s): F33.9 - Major depressive disorder, recurrent, unspecified Category: Medical Qualifiers: Major depression episode severity: moderate Qualified Code(s): F33.1 - Major depressive disorder, recurrent, moderate (4) 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: Comment: was on vivitrol in the past Code(s): F11.11 - Opioid abuse, in remission Category: Medical (5) Bipolar 1 disorder: Code(s): F31.9 - Bipolar disorder, unspecified Category: Medical (6) Encounter for screening involving social determinants of health (SDoH): Code(s): Z13.9 - Encounter for screening, unspecified Plan . Patient Instructions: Crisis Hotlines Suicide prevention, domestic violence, and other crisis hotlines for youth, young adults, and their friends and families. [facility] Safeline helps youth who have run away, are thinking about running away, or who already ran away but are ready to come home. Parents and guardians can also contact the hotline if they are worried about their child running away or if their child has already left home. The hotline is available 24 hours a day, seven days a week. Youth, parents, and guardians can also use the online chat feature on the [facility]'s website to ask for help and get support, [place] [address]. [facility] National Suicide Prevention Lifeline: The [place] Suicide Prevention Lifeline is a network of local crisis centers that are available 24/ to provide support for youth and adults who are in any kind of emotional crisis. In addition to the main hotline number listed above, there are several other numbers to call depending on your needs: Bahamian Language: Deaf and Hard of Hearin1-126.882.1806 Veterans: Disaster Distress: Anyone can also use their online chat feature on their website. [place] Suicide Prevention Lifeline [facility] Helpline: The [facility] Helpline is available to anyone in [place] who is need of emotional support. Anyone can call or text the helpline to receive help from specially trained volunteers. [place] high school and college students can also get online support through the [employer]_ program. For high school students, volunteers ages 15-18 are available Monday- from 6-9PM. For college students, [employer]_ is available Monday-Monday from 5-9PM. The Jose Project - The Jose Project is a 24/ crisis intervention and suicide prevention hotline for LGBTQ youth. Youth can also text Jose to for support, or use the online chat feature on the [employer] Project's website. [employer] is available Monday-Monday between 3-10PM. [employer] is available seven days a week between 3-10PM. SafeLink: SafeLink is for anyone who is being affected by domestic violence or dating violence. Volunteers at [employer] speak Danish and Bahamian, and [employer] also has a service that can provide translation in more than 130 languages. TTY:
[2025-02-14 09:20] VITALS: BP 102/70; PULSE 66; RESP 12; TEMP 36.9; O2SAT 100; BMI 39.6
== END 2025-02-14 09:38 | disposition home or self-care (01) ==
LOC: HO.HMCFM 09:13
PROVIDERS: PCP Nurse Practitioner Family; Visit Provider Nurse Practitioner Family
DX: F11.11 Opioid abuse, in remission (principal); F31.9 Bipolar disorder, unspecified; R45.851 Suicidal ideations; F41.1 Generalized anxiety disorder

== ENCOUNTER → 2025-02-14 09:12 | Outpatient (BNVA) | payer OTHER, SELFPAY | PROVIDERS: PCP Nurse Practitioner Family; Visit Provider Nurse Practitioner Family | DX: R45.851 Suicidal ideations (principal); F41.1 Generalized anxiety disorder; F33.1 Major depressive disorder, recurrent, moderate; F11.11 Opioid abuse, in remission | CPT/HCPCS: 96127; 99212 ==

== ENCOUNTER 2025-04-17 13:56 | Outpatient (REF) | payer OTHER, SELFPAY ==
[2025-04-17 15:36] LABS: MANUAL DIFF FLAG NO
[2025-04-17 17:06] LABS: Basophils Percent Auto 0.4 % (0-2); Eosinophils Absolute Auto 0.1 X10*3/uL (0.0-0.4); Eosinophils Percent Auto 1.3 % (0-4); Hematocrit 39.3 % (37.0-47.0); Hemoglobin 13.7 g/dl (12.0-16.0); Imm Gran Abs Auto 0.03 X10*3/uL (0.00-0.03); Imm Gran Pct Auto 0.3 % (0.0-0.4); Lymphocytes Absolute Auto 2.5 X10*3/uL (1.2-4.9); Lymphocytes Percent Auto 24.9 % (20-40); Mean Corpuscular HGB Conc 34.9 g/dl (31.0-35.0); Mean Corpuscular Hemoglobin 33.1 pg (27.0-33.0); Mean Corpuscular Volume 94.9 fL (80.0-98.0); Mean Platelet Volume 10.4 fL (9.4-12.3); Monocytes Absolute Auto 0.6 X10*3/uL (0.1-1.2); Monocytes Percent Auto 6.3 % (2-11); Neutrophils Absolute Auto 6.6 x10*3/uL (2.0-8.3); Neutrophils Percent Auto 66.8 % (45-73); Platelet Count 333 X10*3/uL (160-400); Red Blood Count 4.14 X10*6/uL (4.20-5.50); Red Cell Distribution Width 12.9 % (11.0-16.0); White Blood Count 9.9 X10*3/uL (4.8-10.8)
[2025-04-17 17:25] LABS: Appearance Urine Clear; Color Urine Yellow; Glucose Urine UA Negative (Negative); Leukocyte Esterase Urine Trace (Negative); Nitrite Urine Negative (Negative); UMIC TRIGGER UACC YES; Urine Blood Negative (Negative); Urine Ketones Negative (Negative); Urine Protein Negative (Neg-Trace)
[2025-04-17 17:29] LABS: Bacteria Urine None Seen (None Seen); Hyaline Casts Urine 0-2 /LPF (0-2); RBC Urine 0-2 /HPF (0-2); Squamous Epithelial Cell Urine 0-2 /HPF (0-2); WBC Urine 0-5 /HPF (0-5)
[2025-04-17 17:45] LABS: Alanine Aminotransferase 29 U/L (0-31); Albumin Level 4.6 g/dL (3.5-5.0); Alkaline Phosphatase 50 U/L (39-117); Anion Gap 12 (12-20); Aspartate Amino Transferase 19 U/L (5-31); Bilirubin Total 0.4 mg/dL (0.0-1.0); Blood Urea Nitrogen 14 mg/dL (9-16); Calcium 9.9 mg/dL (8.4-10.2); Carbon Dioxide 25 mmol/L (22-29); Chloride 107 mmol/L (96-108); Estimated Glomerular Filt Rate > 60; Glucose Random 69 mg/dL (60-115); Potassium 3.6 mmol/L (3.3-5.1); Sodium 140 mmol/L (135-145); Total Protein 7.9 g/dL (6.5-8.0)
[2025-04-17 18:01] LABS: Ferritin 253 ng/mL (10-122)
[2025-04-17 18:14] LABS: Folate 8.3 ng/mL (> or = 4.0); Vitamin B12 1106 pg/mL (200-900)
[2025-04-19 09:00] LABS: H Pylori Breath Test Negative (Negative)
== END 2025-04-17 13:57 | disposition home or self-care (01) ==
LOC: HO.LAB 13:56
PROVIDERS: PCP Nurse Practitioner Family; Visit Provider Internal Medicine Gastroenterology
DX: Z91.018 Allergy to other foods (principal); R10.9 Unspecified abdominal pain; K75.81 Nonalcoholic steatohepatitis (NASH)
CPT/HCPCS: 36415; 80053; 81001; 82607; 82728; 82746; 83013; 85025; 86003; 99202

== ENCOUNTER 2025-04-17 13:56 | Outpatient (AMB) | payer OTHER, SELFPAY ==
--- NOTE | 2025-04-17 13:59 | A.OFFVIS_ITS ---
Vital Signs 04/17/25 14:00 Height 5 ft 8 in Weight 264 lb 8.875 oz BMI 40.2 BP 108/62 Blood Pressure Location Lt brachial Position Sitting Pulse 65 Intake Visit Reasons: Gastroesophageal reflux disease (GERD) Intake Note: Danica presents in the office as a new patient for GERD. CC: States that she has a lot of diarrhea and bloating, States she gets stomach aches every time she eats. Intervention Analyst Required: No Allergies No Known Allergies Allergy (Verified 04/17/25 14:01) HPI HPI Gastroesophageal reflux disease (GERD): Details: HPI 24 yr old f here for assessment She has diarrhea every day with pain in the sides, like pressure, 7/10 in severity no blood in stool food makes food worse trouble losing weight she has nausea, occ vomiting she has satiety occ heart burn sx going on for 1 year now appetite is variable she can have heaviness in chest sometimes ROS: Constitutional : No Weight loss, No Fever, No Chills ENT/Mouth : No sore throat, No Rhinorrhea Eyes: No Swelling, No Redness Cardiovascular :, No SOB, No Edema Respiratory : No Cough, No Sputum, No Wheezing Gastrointestinal : see HPI Genitourinary : NO Dysuria, No Urinary Frequency, No Hematuria, No Urgency Musculoskeletal : no joint pain, No Myalgias, No Joint Swelling Skin : No Skin Lesions, No rash Neuro : No Weakness, No Numbness, No Dizziness, No Headache Psych : No Anxiety/Panic, No Depression Heme/Lymph: No Bruising, No Lymphadenopathy Endocrine : No Polyuria, No Polydipsia All other systems reviewed and are negative. Medical History bipolar anemia hep c --treated Surgical History wisdom teeth Family History HTN in parents mother with colitis Social History vaping, no alcohol sober from drug use for 5 yrs EXAM: GENERAL: The patient is well developed and nontoxic. VITAL SIGNS:see workflow HEENT: Nonicteric sclerae, PERRLA, EOMI. Oropharynx clear. Moist mucous mem branes. Conjunctivae appear well perfused. No thyroid mass. CHEST: Chest wall is nontender. HEART: Regular rate and rhythm without murmurs. LUNGS: Clear to auscultation bilaterally. ABDOMEN: Soft, positive bowel sounds, tender epigastrium, no organomegaly.no flank tenderness SKIN: No rash, no excessive bruising, petechiae, or purpura. NEUROLOGIC: Cranial nerves II-XII intact without motor/sensory deficit. Psych: normal affect A/P: 1/ Epigastric and upper abdo pain, nausea, post prandial pain ddx: IBD, PUD, enteroapthy, colitis, gallstones PLAN: /1 - US 2/ Labs 3/ RAST test 4/ EGD and colo--suprep 5/ zofran meantime, prn 6/ h pylori test PFSH Medical History History of heroin abuse Acne Diarrhea Stomachache GERD (gastroesophageal reflux disease) Drug abuse Migraines Surgical History [place] teeth extracted Family History Mother HTN (hypertension) Cardiovascular disease Alcoholism Father HTN (hypertension) Cardiovascular disease Alcoholism Maternal Grandmother High cholesterol Cardiovascular disease Alcoholism Social History Household Members: Children Both parents involved: No Caregiver staying overnight: No Housing: Apartment Are you a primary intensive care unit registered nurse to a significant other at home: Yes Do you presently have visiting nurse or other home services: No 75 years or older and lives alone: No Alcohol intake: never Patient Tobacco Use Status: Never used Tobacco e-Cigarette/Vaping Use: Currently Using Second Hand Smoke Exposure: No service: No Current occupational status: employed 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 Cognitive needs: No Hearing needs: No Vision needs: No Physical Exam Vital Signs: Last Vital Signs Pulse 65 04/17/25 14:00 BP 108/62 04/17/25 14:00 BMI result Body Mass Index 40.2 Assessment & Plan Assessment & Plan (1) Abdominal pain: Code(s): R10.9 - Unspecified abdominal pain Category: Medical Plan: as above Orders: Orders US abdomen complete Today R10.9 - Unspecified abdominal pain Complete Blood Count Auto Diff Today R10.9 - Unspecified abdominal pain UA CC w/rflx Micro + Cult Today R10.9 - Unspecified abdominal pain, R30.0 - Dysuria Vitamin B12 and Folate Today R10.9 - Unspecified abdominal pain Rast Allergen Today Z91.018 - Allergy to other foods Comprehensive Met. Panel Today K75.81 - Nonalcoholic steatohepatitis (PICHARDO), R10.9 - Unspecified abdominal pain Ferritin Today R10.9 - Unspecified abdominal pain H Pylori Breath Test Today Medications: New sodium,potassium,mag sulfates 17.5-3.13-1.6 gram (Suprep Bowel Prep Kit) DILUTE; drink 1/2 at 6-8 pm and half at 11 PM- 1AM 354 mL 0RF ondansetron 4 mg PO Q8H PRN 30 tabs 0RF nausea and vomiting Coding Level of Care Code New Pt Level 4 (84856) Diagnoses Abdominal pain R10.9
[2025-04-17 14:00] VITALS: BP 108/62; PULSE 65; BMI 40.2
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
== END 2025-04-17 15:02 | disposition home or self-care (01) ==
PROVIDERS: PCP Nurse Practitioner Family; Visit Provider Internal Medicine Gastroenterology
DX: R10.9 Unspecified abdominal pain (principal)
CPT/HCPCS: 99204

== ENCOUNTER 2025-07-31 13:45 | Outpatient (AMB) | payer OTHER, SELFPAY ==
--- NOTE | 2025-07-31 13:48 | A.OFFPC_ITS ---
Vital Signs 07/31/25 13:54 Height 5 ft 8 in Weight 265 lb BMI 40.3 BP 105/68 Blood Pressure Location Rt brachial Position Sitting Respiration 12 Pulse 75 Pulse Source Pulse Oximeter Temp 97.2 F Temp Source Oral Pulse Oximetry (%) 99 Oxygen Delivery Method Room Air Intake Visit Reasons: Heel pain Intake Note: Patient c/o both heels px and worse when walking, and patient states it feels like walking on bone x 2 month. Patient also c/o rash around both side of the mouth and peeling since last year. [employer] Required: No Allergies No Known Allergies Allergy (Verified 07/31/25 14:07) Medication List - Last Reconciled 07/31/25 by Teresa Phillips, EMT INTERMEDIATE- aripiprazole (Abilify) 15 mg PO DAILY doxycycline monohydrate 100 mg PO BID gabapentin 300 mg PO BEDTIME lamotrigine 200 mg PO DAILY ondansetron 4 mg PO Q8H PRN prazosin 1 mg PO BEDTIME sertraline (Zoloft) 50 mg PO DAILY sodium,potassium,mag sulfates 17.5-3.13-1.6 gram (Suprep Bowel Prep Kit) DILUTE; drink 1/2 at 6-8 pm and half at 11 PM- 1AM trazodone 50 mg PO BEDTIME PRN Tobacco use date assessed: 07/31/25 Dental Screening Dental Screen Date: 07/31/25 Did you have a dental visit in the last 12 months?: Yes Did you have a dental problem in the last 6 months where you did not have access to dental care?: No Was dental information given to patient?: Patient has dentist HPI HPI Comments History of Present Illness Details 25 y/o F with obesity, bipolar, MDD, ANNAMARIA , Hep c cured, GERD, chronic abd pain, Vape nicotine, Heroin abuse in remission Surgery wisdom teeth removal family hx: paternal uncle pancreatic ca (), no DM or other cancers, MGM + CAD Social: 1 dtr alive and well, age 4. Lives w/ dtr. 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 Bilateral heel pain feels like walking on a bone; exacerbated by walking; no injury noted. - Reports rash around mouth and eye brow s; No response to OTC yeast cream; ketoconazole prescribed previously without improvement. Saw derm w/o relief. Review of Systems - Musculoskeletal: Reports heel pain whe n walking; denies relief with current footwear. - Integumentary: Reports rash; denies sy mptoms of infection or prior similar episodes. Physical Exam General: Well developed, well nourished, in no acute distress. Appears stated age. Head: Normocephalic, atraumatic. Eyes: Pupils are equal, round and reactive to light and accommodation. Conjunctivae are clear. Vision grossly normal.. Musculoskeletal: No joint redness or swelling. Pain over plantar fasciia bilat. Pulses: Peripheral pulses are equal and palpable bilaterally. Extremities: No clubbing, cyanosis nor edema is noted. Skin: erythematous rash around mouth, no warmth or signs of infection Psych: Mood and affect appropriate. Discussion Notes During the discussion, I explained to the patient that her symptoms and examination findings are consistent with plantar fasciitis. I emphasized that wearing flat shoes contributes to exacerbating the condition. I recommended exercises for home and rigid arch support inserts to help alleviate symptoms. These supports may initially cause more discomfort but will aid in healing. I advised against soft inserts and suggested alternatives like rolling a sturdy object under her foot at work to relieve pain. I recommended trying ztkw-jpo-xcebull treatments like T-Modesto or T-Gel, cautioning not to apply near sensitive areas like eyes and mouth. We will continue monitoring for improvements or changes in either condition. Patient was given time to ask questions. All questions were answered to their satisfaction. Assessment and Plan 1. Plantar Fasciitis - Recommended exercises and rigid arch s upports. - Advised foot rolling exercises and Vol eron gel. - Precaution with morning foot movements . - If no improvement, refer to podiatry. 2. Unspecified Dermatitis - Suggested webl-kmq-ppcknrz T-Modesto/T-Gel . - Monitor symptom progression and consid er options if unresolved. - FU with Derm Patient Instructions - Use rigid arch support inserts in shoe s, even if initially painful. - Perform recommended foot exercises and use a firm object to roll foot arch. - Apply Voltaren gel as directed for ricky l pain relief. - Consider wearing a high-top sneaker at night to maintain foot flexion. - Try mqww-vry-txzzncf T-Modesto or T-Gel, e nsuring not to apply near eyes or mouth. - Watch for any changes or worsening of symptoms and seek advice if necessary. - RTO for CPE, sooner as needed. Consent Patient was informed and verbally consented to the use of an ambient scribe for clinic note documentation during this visit. Total time spent caring for the patient today was 30 minutes. This includes time spent before the visit reviewing the chart, time spent during the visit, and time spent after the visit on documentation, reviewing laboratory results, diagnostic imaging, medications, performing a medically necessary evaluation, counseling on diagnoses, care coordination, ordering appropriate tests, ordering appropriate medications, review of tests performed by other providers, reporting test results with the patient, communication with other healthcare providers. [facility] Medical History History of heroin abuse Acne Diarrhea Stomachache GERD (gastroesophageal reflux disease) Drug abuse Migraines Surgical History Arnett teeth extracted Family History Mother HTN (hypertension) Cardiovascular disease Alcoholism Father HTN (hypertension) Cardiovascular disease Alcoholism Maternal Grandmother High cholesterol Cardiovascular disease Alcoholism Social History Household Members: Children Both parents involved: No Caregiver staying overnight: No Housing: Apartment Are you a primary medicare insurance specialist to a significant other at home: Yes Do you presently have visiting nurse or other home services: No 75 years or older and lives alone: No Alcohol intake: never Patient Tobacco Use Status: Never used Tobacco e-Cigarette/Vaping Use: Currently Using Second Hand Smoke Exposure: No service: No Current occupational status: employed 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 1. Little interest or pleasure in doing things: not at all 2. Feeling down, depressed, or hopeless: not at all 3. Trouble falling or staying asleep, or sleeping too much: not at all 4. Feeling tired or having little energy: not at all 5. Poor appetite or overeating: not at all 6. Feeling bad about yourself - or that you are a failure or have let yourself or your family down: not at all 7. Trouble concentrating on things, such as reading the newspaper or watching television: not at all 8. Moving or speaking so slowly that other people could have noticed. Or the opposite - being so fidgety or restless that you have been moving around a lot more than usual: not at all 9. Thoughts that you would be better off or of hurting yourself in some way: not at all Total score: 0 Depression Screening Interpretation: Negative Depression Screening Done: Yes 83061 - PHQ-9 Billing: Yes Source: Developed by Drs. Conrad Steel, Shell Dong, Gaetano José and colleagues, with an educational jeison from [employer]. Thrive Questionnaire Date Thrive assessed: 07/31/25 I am a: Patient What is your living situation today?: I have a steady place to live Within the past 12 months, did the food you bought not last and you didn't have the money to get more?: Never true Within the past 12 months, did you worry whether your food would run out before you got money to buy more?: Never true Do you have trouble paying for medicines?: No Do you have trouble getting transportation to medical appointments?: Yes Do you have trouble paying your heating and electricity bill?: No Do you have trouble taking care of your child, family member or friend?: No Do you have trouble with day-to-day activities such as bathing, preparing meals, shopping, managing finances, etc.?: No Are you currently unemployed and looking for a job?: No Are you interested in more education?: Yes Please select the resources that you would like help with: None Currently or been in a relationship where the following occur: No concerns reported THRIVE Score: 1 ANNAMARIA-7 AMB Questionnaire ANNAMARIA-7 Date ANNAMARIA - 7 assessed: 07/31/25 Feeling nervous, anxious, or on edge: 0 = Not at all Not being able to stop or control worryin = Not at all Worrying too much about different things: 0 = Not at all Trouble relaxin = Not at all Being so restless that it is hard to sit still: 0 = Not at all Becoming easily annoyed or irritable: 0 = Not at all Feeling afraid as if something awful might happen: 0 = Not at all Total ANNAMARIA-7 score (0-4 normal; 5-9 mild; 10-14 moderate; 15-21 severe): 0 Source: Developed by Drs. Conrad Steel, Shell Dong, Gaetano José and colleagues, with an educational jeison from [employer]. ANNAMARIA-7 Assessment Billing ANNAMARIA-7 Assessment Tool: ANNAMARIA-7 Assessment 25829 Physical exam (Primary Care) Vital Signs: Last Vital Signs Temp 97.2 F 07/31/25 13:54 Pulse 75 07/31/25 13:54 Resp 12 07/31/25 13:54 BP 105/68 07/31/25 13:54 Pulse Ox 99 07/31/25 13:54 Oxygen Delivery Method Room Air 07/31/25 13:54 BMI result Body Mass Index 40.3 BMI Assessment/Plan discussion: High BMI High, discussed plan: lifestyle Tobacco/Smoking Status: Tobacco use Status Tobacco use date assessed 07/31/25 07/31/25 13:56 Patient Tobacco Use Status Never used Tobacco 07/31/25 13:56 e-Cigarette/Vaping Use Currently Using 07/31/25 13:56 PHQ-9: PHQ-9 Score PHQ-9: Total score 0 07/31/25 13:56 Depression Screening Interpretation: Negative Thrive Assessment: Date of Thrive Assessment Date Thrive assessed 07/31/25 07/31/25 13:56 Currently or been in a relationship where the following occur: No concerns reported Coding Level of Care Code Est Pt Level 4 (07036) Complex EM visit Add On G2211 Diagnoses Atopic dermatitis, unspecified type L20.9 Atopic dermatitis type: unspecified Plantar fasciitis, bilateral M72.2 BMI 40.0-44.9, adult Z68.41 Obesity, morbid, BMI 40.0-49.9 E66.01 Additional Codes ANNAMARIA-7 Assessment Billing - ANNAMARIA-7 Assessment Tool: ANNAMARIA-7 Assessment 65326 ([id number]) PHQ-9 - 49150 - PHQ-9 Billing: Yes ([id number]) Assessment & Plan Assessment & Plan (1) Atopic dermatitis, unspecified: Code(s): L20.9 - Atopic dermatitis, unspecified Category: Medical Qualifiers: Atopic dermatitis type: unspecified Qualified Code(s): L20.9 - Atopic dermatitis, unspecified (2) Plantar fasciitis, bilateral: Code(s): M72.2 - Plantar fascial fibromatosis (3) BMI 40.0-44.9, adult: Code(s): Z68.41 - Body mass index [BMI] 40.0-44.9, adult Category: Medical (4) Obesity, morbid, BMI 40.0-49.9: Code(s): E66.01 - Morbid (severe) obesity due to excess calories Category: Medical Plan . Medications: New 2 diclofenac sodium 1% (Voltaren Arthritis Pain) apply to single elbow, wrist or hand; for hand includes palm/fingers/back of hand 2 grams topical QID 100 grams 0RF Patient Instructions: T- Modesto or T- Gel
[2025-07-31 13:54] VITALS: BP 105/68; PULSE 75; RESP 12; TEMP 36.2; O2SAT 99; BMI 40.3
--- OUTSIDE RECORDS SUMMARY | 2025-07-31 15:02 | XMS_ITS | Clinical Summary ---
Author Organization [address] Address [address] [place] [id number] Care Team Providers Care Freight Car Inspector Name Role Phone Pcp, Does Not Have [...] needed for wheezing. 18 g 5 Active Active Problems Problem Noted Date Diagnosed Date Acute cough 12/25/2024 COVID-19 12/02/2024 Fever, unspecified fever cause 12/02/2024 Immunizations Immunization Administration Dates Next Due DTaP, unspecified formulation [...] 09/04/2001,05/18/20,02/19/2001 Polio (IPV) 04/30/2004, 1,2000,07/10 Tdap 05/13/2011 Varicella, live 06/03/2008,05/18/2001 Family History Relation Name Status Comments [...] 69 12/25/2024 6:34 PM EST Temperature 36.3 C (97.4 F) 12/25/2024 6:34 PM EST Respiratory Rate 20 12/25/2024 6:34 PM EST Oxygen Saturation 95% 12/25/2024 6:34 PM EST Inhaled Oxygen Concentration - - Weight 113.4 kg (250 lb) 12/25/2024 6:34 PM EST Height 172.7 cm (5' 8 ) 12/25/2024 6:34 PM EST Body Mass Index 38.01 12/25/2024 6:34 PM EST Plan of Treatment Health Maintenance Due Date Last Done Comments Hepatitis C screening 2018 Cervical cancer screening 2021 DTaP/TDaP Vaccines (7 - Td or Tdap) 05/13/2021 05/13/2011, 04/30/2004, 10/29/2001, Additional history exists Tetanus adult (Td q 10,TDAP once) 05/13/2021 05/13/2011 Covid-19 vaccine series ( - season) 2025 Influenza vaccine 07/28/2025 11/25/2022, , 11/09/2017, Additional history exists RSV Immunization (1 - 1-dose 75+ series) 2075 HIB Vaccines Completed 09/04/2001, 10/27, 2000, Additional history exists Pneumococcal Vaccine (2 - 49 years) Aged Out 09/04/2001, 05/18/2001, 02/19/2001 No longer eligible based on patient's age to complete this topic IPV Vaccines Completed 04/30/2004, 01/2001, 2000, Additional history exists MMR Vaccines Completed 04/30/2004, 09/04/2001 Varicella Vaccines Completed 06/03/2008, 05/18/2001 HPV vaccine series Completed 11/16/2011, 0 07/15/2011, 05/13/2011 Meningococcal Vaccine Completed 06/23/2016, 011 Meningococcal B Vaccine Completed 08/24/2017, 07/11 HIV screening Completed 11/06/2017 Hepatitis B vaccine series Completed 03/29, 12/11/2017, 11/09/2017, Additional history exists Hepatitis A Vaccines Aged Out No long er eligible based on patient's age to complete this topic Rotavirus Vaccines Aged Out No longer eligible based on patient's age to complete this topic Insurance [id number] MEDICAID [id number] MEDICAID [id number] MEDICAID Care Teams Freight Car Inspector Relationship Specialty Start Date End Date Pcp, Does Not Have A PCP - General 12/02/24
--- OUTSIDE RECORDS SUMMARY | 2025-07-31 15:02 | XMS_ITS | Encounter Summary ---
Author Organization [facility] Address [address] [place] [address] Care Team Providers Care Compensation Expert Name Role Phone Marina Souza NP Primary Care Provider + Encounter Details Date Type Department Care Team Description 03/03/2021 Records Encounter HIM OFFICE [address] [place] [address] Provider, Not In System Social History Tobacco Use Types Packs/Day Years Used Date Smoking Tobacco: Every Day Nicotine Inhalation Smokeless Tobacco: Never Comments:vapes Alcohol Use Standard Drinks/Week Comments No 0 (1 standard drink = 0.6 oz pur e alcohol) Sex and Gender Information Value Date Recorded Sex Assigned at Female 10/03/2018 2:29 AM EST Gender Identity Not on file Sexual Orientation Not on file Job Start Date Occupation Industry Not on file Not on file Not on file COVID-19 Exposure Response Date Recorded In the last month, have you been in contact with someone who was confirmed or suspected to have Coronavirus / COVID-19? No / Unsure 03/02/2021 11:28 AM EDT documented as of this encounter Plan of Treatment Not on file documented as of this encounter Visit Diagnoses Not on filedocumented in this encounter Care Teams Compensation Expert Relationship Specialty Start Date End Date Marina Souza NP [address] [place] [address] PCP - General Family Medicine 08/23/21 documented as of this encounter
--- OUTSIDE RECORDS SUMMARY | 2025-07-31 15:02 | XMS_ITS | Clinical Summary ---
Author Organization [facility] Address [address] [place] [address] Care Team Providers Care Automotive Power Electronics Engineer Name Role Phone Marina Souza ANA MARIA Primary Care Provider + Surgical History Surgery Date Site/Laterality Comments WISDOM TOOTH EXTRACTION PROCEDURE:WISDOM TOOTH EXTRACTION Medical History Medical History Date Comments IV drug user DX:IV drug user; COMMENT:last used heroin January 2020 per records Depression DX:Depression Anxiety DX:Anxiety Hepatitis C DX:Hepatitis C Family History Medical History Relation Name Comments Colon cancer Neg Hx Colon polyps Neg Hx Liver cancer Neg Hx Liver disease Neg Hx Social History Tobacco Use Types Packs/Day Years Used Date Smoking Tobacco: Every Day Smokeless Tobacco: Never Alcohol Use Standard Drinks/Week Comments No 0 (1 standard drink = 0.6 oz pur e alcohol) Comments Unknown Sex and Gender Information Value Date Recorded Sex Assigned at Not on file Legal Sex Female 3:03 AM EST Gender Identity Not on file Sexual Orientation Not on file Obstetrics History Plan of Treatment Health Maintenance Due Date Last Done Comments HPV Vaccines (1 - 3-dose series) 2015 DTaP,Tdap,and Td Vaccines (1 - Tdap) 2019 Hepatitis B Vaccines (1 of 3 - 19+ 3-dose series) 2019 Cervical Cancer Screening: P ap Smear 2021 Depression Screening 11/27/2024 COVID-19 Vaccine ( - 2023-2 5 season) 2025 Influenza Vaccine (#1) 2025 HIB Vaccines Aged Out No longer eligi ble based on patient's age to complete this topic Hepatitis A Vaccines Aged Out No long er eligible based on patient's age to complete this topic IPV Vaccines Aged Out No longer eligi ble based on patient's age to complete this topic MMR Vaccines Aged Out No longer eligi ble based on patient's age to complete this topic Meningococcal ACWY Vaccine Aged Out N o longer eligible based on patient's age to complete this topic Meningococcal B Vaccine Aged Out No l onger eligible based on patient's age to complete this topic Pneumococcal Vaccine: Pediat rics (0 to 5 Years) and At-Risk Patients (6 to 49 Years) Aged Out No longer eligible b ased on patient's age to complete this topic RSV Immunization Patients Un moriah 20 months Aged Out No longer eligible b ased on patient's age to complete this topic Varicella Vaccines Aged Out No longer eligible based on patient's age to complete this topic Care Teams Automotive Power Electronics Engineer Relationship Specialty Start Date End Date Marina Souza NP [address] [place] [address] PCP - General Family Medicine 08/23/21
--- OUTSIDE RECORDS SUMMARY | 2025-07-31 15:02 | XMS_ITS | Clinical Summary ---
Author Organization [facility] Address [address] [place] [address] Care Team Providers Care Cut Off Operator Scorer Name Role Phone Venancio Chaudhari MD Primary Care Provider [phone] Blake Ye [facility] Unavailable Allergies No known active allergies Medications * This document contains information received from the source organization and may not represent a complete record from that organization. ferrous sulfate 325 (65 FE) MG tabletIndicatio ns:Iron Deficiency Take 325 mg by mouth every other day. Take 2 hours before or 4 hours after acid reducers. Active multivitamin (multivitamin) Tab tabletIndicatio ns:general health Take 1 tablet by mouth daily. Active norgestimate-et hinyl estradiol (ORTHO TRI-CYCLEN,KEVIN ESSA) 0.18/0.215/0.25 MG-35 MCG per tabletIndicatio ns:Contraceptiv e Therapy Take 1 tablet by mouth daily. Active escitalopram (LEXAPRO) 10 MG tabletIndicatio ns:Major Depressive Disorder Take 1 tablet (10 mg total) by mouth daily. 30 tablet 01/06/2018 Active lamoTRIgine (LaMICtal) 25 MG tabletIndicatio ns:Depression Take 1 tablet (25 mg total) by mouth daily. 30 tablet 01/06/2018 Active naltrexone (REVIA) 50 MG tabletIndicatio ns:Opioid Dependence Take 1 tablet (50 mg total) by mouth daily. 30 tablet 01/06/2018 Active prazosin (MINIPRESS) 2 MG capsuleIndicati ons:nightmares Take 1 capsule (2 mg total) by mouth nightly. 30 capsule 01/05/2018 Active hydrOXYzine pamoate (VISTARIL) 50 MG capsuleIndicati ons:anxiety Take 1 capsule (50 mg total) by mouth 2 (two) times a day as needed for anxiety. 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 01/10/2018 Other specified anxiety disorders 01/10/2018 Benzodiazepine abuse 12/29/2017 Depression with suicidal ideation 11/09/2017 Polysubstance dependence 11/09/2017 At risk for injury due to substance overdose Opiate overdose 11/09/2017 Family History Medical History Relation Name Comments Alcohol abuse Mother Relation Name Status Comments Mother Social History Tobacco Use Types Packs/Day Years Used Date Smoking Tobacco: Never Smokeless Tobacco: Never Alcohol Use Standard Drinks/Week Comments No 0 (1 standard drink = 0.6 oz pur e alcohol) Comments Unknown Sex and Gender Information Value Date Recorded Sex Assigned at Not on file Legal Sex Female 12:46 PM EST Gender Identity Not on file Sexual Orientation Not on file Last Filed Vital Signs Vital Sign Reading Time Taken Comments Blood Pressure 106/68 01/05/2018 8:08 AM EST Pulse 84 01/05/2018 8:08 AM EST Temperature 36.8 C (98.3 F) 01/05/2018 8:08 AM EST Respiratory Rate 16 01/05/2018 8:08 AM EST Oxygen Saturation - - Inhaled Oxygen Concentration - - Weight 63.2 kg (139 lb 6.4 oz) 01/03/2018 8:00 A M EST Height 170.2 cm (5' 7 ) 12/29/2017 10:56 PM EST Body Mass Index 21.83 12/29/2017 10:56 PM EST Plan of Treatment Health Maintenance Due Date Last Done Comments HPV Vaccines (1 - 3-dose series) 2015 DTaP/Tdap/Td Vaccines (1 - Tdap) 2019 Hepatitis B Vaccines (1 of 3 - 19+ 3-dose series) 2019 Pap Smear (Ages 21-65) 2021 COVID-19 Vaccine ( - 2023-2 5 season) 2024 Influenza Vaccine 06/27/2025 Hepatitis C Virus Screening Completed 07/28, 07/09/2019 HIV Screening Completed 12/30/2020, 08/12/2020 Pneumococcal Vaccine: Pediatric (0-5 Years) and At-Risk Patients (6 to 49 Years) Aged Out No longer eligible b ased on patient's age to complete this topic Procedures Procedure Name Priority Date/Time Associated Diagnosis Comments HIV 1/2 AG/AB CMIA REFLEX TO CONFIRMATION Routine 12/30/2020 11:28 AM EST HEPATITIS C VIRUS (HCV) ANTIBODY Routine 08/12/2020 2:42 PM EDT from Last 3 Months or Most Recently Relevant to Health Maintenance Results * HIV 1/2 Ag/Ab CMIA Reflex to Confirmation (12/30/2020 11:28 AM EST) HIV Ag/Ab, 4th Gen Non-Reacti ve Non-Reacti ve [facility] Comment: Results show no evidence of infection by HIV 1/2. If clinically indicated, repeat CMIA or test by nucleic acid amplification. Other 12/30/2020 11:2 8 AM EST 12/31/2020 2:39 AM EST Narrative [facility] - 12/31/2020 11:56 AM EST FASTING:YES us Sylvia Mcgee MD LAB BLOOD ORDERABLES Final Res ult Performing Organization Address City/State/[facility] Co de Phone Number [facility] [address], [place] * (ABNORMAL) Hepatitis C Virus (HCV) Antibody (08/12/2020 2:42 PM EDT) Hepatitis C Antibody 9.62 Reactive(A ) Non-Reacti ve S/CO [facility] Comment: CDC recommends a cukdyf-yq-scheng (S/CO) ratio equal to or >5 to predict true infection 95% of the time. Low reactive results (1.0-4.99 S/CO) should be confirmed by HCV nucleic acid testing. Other 08/12/2020 2:42 PM EDT 08/13/2020 1:51 AM EDT Narrative [facility] - 08/13/2020 11:03 AM EDT FASTING:NO us Syd Woods DO LAB BLOOD ORDERABLES Amber too Result Performing Organization Address City/State/[facility] Co de Phone Number [facility] [address], [place] from Last 3 Months or Most Recently Relevant to Health Maintenance Insurance [employer] Advance Directives * Full Code (Latest Code Status on File) Date Activated Date Inactivated Comments 12/30/2017 10:34 AM Question Answer Comments Decision Thoroughly Discussed with: Patient * Full Code Date Activated Date Inactivated Comments 12/29/2017 11:37 PM 12/30/2017 10:34 AM Question Answer Comments Decision Thoroughly Discussed with: Patient * Full Code Date Activated Date Inactivated Comments 11/09/2017 10:22 PM 12/29/2017 10:15 PM Care Teams Cut Off Operator Scorer Relationship Specialty Start Date End Date Venancio Chaudhari MD [address] [facility] [address] [place] [address] PCP - General Pediatric, General 11/09/17 Blake Ye RPH [address] [place] [address] Pharmacist 11/10/17
--- OUTSIDE RECORDS SUMMARY | 2025-07-31 15:02 | XMS_ITS | Clinical Summary ---
Author Organization [facility] Address [address] [place] [address] Care Team Providers Care Citrix Systems Administrator Name Role Phone Marina Souza NP Primary Care Provider + Allergies Active Allergy Reactions Criticality Noted Date Comments Seasonal 10/02/2018 Medications Medication Sig Dispensed Refills Start Date End Date Status LamoTRIgine (LAMICTAL PO) Take 10 mg by mouth daily. 0 Active cloNIDine (CATAPRES) tablet 0.1 mg clonidine HCl 0.1 mg tablet 0 04/17/2020 Active ipratropium (ATROVENT) 0.06 % nasal spray ipratropium bromide 42 mcg (0.06 %) nasal spray 0 Active LILLOW 0.15-30 MG-MCG per tablet Take 1 tablet by mouth daily. 0 07/12/2020 Active mirtazapine (REMERON) 30 MG tablet mirtazapine 30 mg tablet 0 Active naltrexone (VIVITROL) 380 MG SUSR injection Vivitrol 380 mg intramuscular suspension,extended release MD TO INJECT 1 INJECTION INTRAMUSCULARLY EVERY 28 DAYS 0 03/17/2020 Active naltrexone (DEPADE) 50 MG tablet naltrexone 50 mg tablet TAKE 1 TABLET BY MOUTH EVERY DAY 0 01/06/2018 Active omeprazole (PRILOSEC) 20 MG capsule 1 mg daily. 0 Active prazosin (MINIPRESS) 1 MG capsule prazosin 1 mg capsule 0 Act loulou QUEtiapine (SEROquel) 200 MG tablet quetiapine 200 mg tablet 0 04/10/2020 Active escitalopram (LEXAPRO) 20 MG tablet Take 20 mg by mouth daily. 0 09/11/2020 Active cetirizine (ZyrTEC) 10 MG tablet Take 1 tablet (10 mg total) by mouth daily. 30 tablet 0 03/10/2021 Active Additional Information Patient not taking.Reason: Other, Reported on 08/23/2021 hydrocortisone 1 % cream Apply topically 3 (three) times a day. 30 g 0 03/10/2021 Active Additional Information Patient not taking.Reason: Other, Reported on 04/01/2021 Epclusa 400-100 MG TABS TAKE ONE TABLET BY MOUTH ONCE DAILY FOR 12 WEEKS WITH OR WITHOUT FOOD. STORE AT ROOM TEMPERATURE. 28 tablet 0 08/17/2021 Active Active Problems Problem Noted Date Diagnosed Date Preeclampsia in period 03/09/2021 Heroin dependence 10/03/2018 Cocaine abuse 10/03/2018 Cannabis abuse 10/03/2018 Resolved Problems Problem Noted Date Diagnosed Date Resolved Date Vaginal delivery 03/03/2021 03/05/2021 Preeclampsia, severe, third trimester 03/03/2021 03/05/2021 37 weeks gestation of 03/02/2021 03/05/2021 Family History Medical History Relation Name Comments [...] file Not on file Not on file Last Filed Vital Signs Vital Sign Reading Time Taken Comments Blood Pressure 110/80 08/23/2021 10:01 AM EDT Pulse 85 03/10/2021 9:44 AM EDT Temperature 36.4 C (97.5 F) 03/10/2021 9:44 AM EDT Respiratory Rate 18 03/10/2021 9:44 AM EDT Oxygen Saturation 98% 03/10/2021 9:44 AM EDT Inhaled Oxygen Concentration - - Weight 117 kg (258 lb) 08/23/2021 10:01 AM EDT Height 172.7 cm (5' 8 ) 04/01/2021 11:15 AM EDT Body Mass Index 39.23 04/01/2021 11:15 AM EDT Plan of Treatment Health Maintenance Due Date Last Done Comments COVID-19 Vaccine (#1) 2000 Pneumococcal Vaccine (1 of 1 - PPSV23 or PCV20) 2006 09/04/2001, 05/18/2001, 02/19/2001 Depression Screening 2012 BMI Counseling 2018 Preventative Health Evaluation 2018 Tobacco Cessation Counseling 2018 Gonorrhea and Chlamydia Screening 06/29/2019 06/29/2018, 03/29/2018 Cervical Cancer Screening (Pap Smear) 2021 Influenza Vaccine (#1) 2025 , 08/27/2020, 11/09/2017, Additional history exists DTap / Tdap / Td (8 - Td or Tdap) 01/04/2031 01/04/2021, 05/13/2011, 04/30/2004, Additional history exists Hepatitis B Vaccines Completed 03/29/2018, 12/11/2017, 11/09/2017, Additional history exists Hepatitis C Screening Completed 09/01/2021 , 04/30/2021, 04/30/2021, Additional history exists RSV Ped < 20 months Aged Out No longe r eligible based on patient's age to complete this topic Advance Directives For more information, please contact: [phone] Latest Code Status on File Code Status Date Activated Date Inactivated Comments Full Code 03/09/2021 9:30 PM 03/10/2021 7:22 PM This code status was ascertained in the following way: discussion with patient . Code Status History Code Status Date Activated Date Inactivated Comments Full Code 03/02/2021 2:28 PM 03/06/2021 12:17 AM This code status was ascertained in the following way: discussion with patient . Care Teams Citrix Systems Administrator Relationship Specialty Start Date End Date Marina Souza NP [address] [place] [address] PCP - General Family Medicine 08/23/21
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
--- OUTSIDE RECORDS SUMMARY | 2025-07-31 15:02 | XMS_ITS ---
Author Name [facility] Organization Unknown History of Medication Use Medication Directions Dispensed Refills Start Date End Date Stat us albuterol sulfate 90 mcg/actuation HFA aerosol inhaler Inhale 2 puffs into the lungs every 6 (six) hours as needed for wheezing. 12/25/2024 active benzonatate (TESSALON) 200 mg capsule Take 1 capsule (200 mg total) by mouth 3 (three) times daily as needed for cough for up to 5 days. 12/25/2024 active fluticasone propionate (FLONASE) 50 mcg/actuation nasal spray Use 2 sprays in each nostril daily. 12/25/2024 active amoxicillin-clavulan ate (AUGMENTIN) 875-125 mg per tablet Take 1 tablet by mouth every 12 (twelve) hours for 7 days. 09/16/2024 09/24/2024 active sertraline (ZOLOFT) 50 mg tablet Take 1 tablet (50 mg total) by mouth daily. 08/28/2024 active ARIPiprazole (ABILIFY) 10 mg tablet Take 1 tablet (10 mg total) by mouth at bedtime. 06/27/2024 active Allergies Allergen Reaction Severity Comment Documented Date Source Statu s ENVIRONMENTAL ALLERGIES CONGESTION 10/02/2018 [facility] active Problems Problem Status Onset Date Problem Type Date of Resoluti on Source Acute cough active 2024-12-[address] [facility] EUC COVID-19 active 2024-12-[address] [facility] C Fever, unspecified fever cause active 2024-12-[address] [facility] Immunizations Vaccine Date Source Lot Number Status Influenza, injectable, quadr ivalent, preservative free 09/18/2020 [facility] [id number] completed Hep B, adolescent or pediatric 03/29/2018 [facility] G9H24 completed Hep B, adolescent or pediatric 12/11/2017 [facility] G9H24 completed Hep B, adolescent or pediatric 11/09/2017 [facility] G9H24 completed Hep B, unspecified formulation 11/09/2017 [facility] completed Influenza, injectable, quadr ivalent, preservative free 11/09/2017 [facility] [id number] completed Meningococcal B, OMV (Bexsero) 08/24/2017 [facility] [id number] 1A completed Meningococcal B, OMV (Bexsero) 07/11/2017 [facility] 80785 1A completed Meningococcal MCV4P - Menactra 06/23/2016 [facility] [id number] AA completed Influenza, injectable, quadr ivalent, preservative free 09/18/2015 [facility] LJ4AE completed Influenza, injectable, quadr ivalent, preservative free 12/03/2014 [facility] [id number] completed HPV, quadrivalent 11/16/2011 [facility] [id number] complet ed Influenza, split virus, triv alent, Preservative Free 11/16/2011 [facility] [id number] completed HPV, quadrivalent 07/15/2011 [facility] [id number] complet ed HPV, quadrivalent 05/13/2011 [facility] [id number] complet ed Meningococcal MCV4P - Menactra 05/13/2011 [facility] U3668 AA completed Tdap 05/13/2011 [facility] [id number] completed Varicella 06/03/2008 [facility] completed DTaP, unspecified formulation 04/30/2004 [facility] completed MMR 04/30/2004 [facility] completed Polio (IPV) 04/30/2004 [facility] completed DTaP, unspecified formulation 10/29/2001 [facility] completed Polio (IPV) 10/29/2001 [facility] completed Hib, unspecified formulation 09/04/2001 [facility] completed MMR 09/04/2001 [facility] completed Pneumococcal conjugate PCV 7 09/04/2001 [facility] completed Pneumococcal conjugate PCV 7 05/18/2001 [facility] completed Varicella 05/18/2001 [facility] completed Hep B, unspecified formulation 02/19/2001 [facility] completed Pneumococcal conjugate PCV 7 02/19/2001 [facility] completed DTaP, unspecified formulation 2000 [facility] completed Hib, unspecified formulation 2000 [facility] completed DTaP, unspecified formulation 2000 [facility] completed Hib, unspecified formulation 2000 [facility] completed Polio (IPV) 2000 [facility] completed DTaP, unspecified formulation 2000 [facility] completed Hib, unspecified formulation 2000 [facility] completed Polio (IPV) 2000 [facility] completed Hep B, unspecified formulation 2000 [facility] completed Hep B, unspecified formulation 2000 [facility] completed Encounters Encounter Type Encounter Reason Primary Diagnosis Location Date Ambulatory Cough Cough [facility] 12/25/2024 Ambulatory Other specified viral infection, in conditions classified elsewhere and of unspecified site Other specified viral infection, in conditions classified elsewhere and of unspecified site [facility] 12/02/2024 Ambulatory Acute bronchitis Acute bronchitis [facility] 09/16/2024 Ambulatory [facility] 08/14/2023 Ambulatory [facility] 08/06/2023 Care Team Organization Name Specialty Phone Email Start Date End [facility] 09/17/2024 [facility] Disclosed Primary Care 12/17/2023 [facility] 08/07/2023 [facility] 08/06/2023 08/06/2023 [facility], PMICHELLE SHULTZ Primary Care 08/13/2021 07/15/2024
== END 2025-07-31 17:05 ==
LOC: HO.HMCFM 13:46
PROVIDERS: PCP Nurse Practitioner Family; Visit Provider Nurse Practitioner Family
DX: L20.9 Atopic dermatitis, unspecified (principal); M72.2 Plantar fascial fibromatosis; Z68.41 Body mass index [BMI] 40.0-44.9, adult; E66.01 Morbid (severe) obesity due to excess calories

== ENCOUNTER → 2025-07-31 13:45 | Outpatient (BNVA) | payer OTHER, SELFPAY | PROVIDERS: PCP Nurse Practitioner Family; Visit Provider Nurse Practitioner Family | DX: M72.2 Plantar fascial fibromatosis (principal); M79.672 Pain in left foot; M79.671 Pain in right foot; L30.9 Dermatitis, unspecified; L20.9 Atopic dermatitis, unspecified; E66.01 Morbid (severe) obesity due to excess calories; Z68.41 Body mass index [BMI] 40.0-44.9, adult | CPT/HCPCS: 96127; 99212 ==

== ENCOUNTER 2025-10-03 09:15 | Outpatient (AMB) | payer OTHER, SELFPAY ==
--- OUTSIDE RECORDS SUMMARY | 2025-10-02 12:30 | XMS_ITS | Encounter Summary ---
Author Organization [facility] Address [address] [place] [id number] Phone Care Team Providers Care Brewer Helper Name Role Phone Pcp, Does Not Have A Primary Care Provider Unava ilable Reason for Visit * Reason Comments Cough Cough, head pain, co ngestion and stomach pain, Pt threw up this morning. Symptoms started 2 days ago. Encounter Details Date Type Department Care Team (Late st Contact Info) Description 10/02/2025 12:30 PM EST Office Visit [facility] [address] [place] [address] Kendall Rousseau PA [address] [place] [id number] Acute cough (Primary Dx); Nausea and vomiting, unspecified vomiting type Social History Tobacco Use Types Packs/Day Years [...] Sign Reading Time Taken Comments Blood Pressure 107/74 10/02/2025 12:42 PM EST Pulse 72 10/02/2025 12:42 PM EST Temperature 36.4 C (97.5 F) 10/02/2025 12:42 PM EST Respiratory Rate 18 10/02/2025 12:42 PM EST Oxygen Saturation 97% 10/02/2025 12:42 PM EST Inhaled Oxygen Concentration - - Weight 117.9 kg (260 lb) 10/02/2025 12:42 PM EST Height 172.7 cm (5' 8 ) 10/02/2025 12:42 PM EST Body Mass Index 39.53 10/02/2025 12:42 PM EST documented in this encounter Patient Instructions * Patient Instructions* Kendall Rousseau PA - 10/02/2025 12:30 PM EST Images from the original note were not included. Thank you for choosing [facility] today! Diagnosis: Nausea and vomiting Rapid COVID and flu was negative. Vital signs and exam are reassuring. Push fluids. Advised patient to alternate Tylenol 650 mg every 4 times a day and ibuprofen 600 mg every 8 hours as needed for the pain. Take Zofran as needed for nausea Follow up with your primary doctor in 3 days if no improvement Patient Education Viral Syndrome Discharge Instructions About this topic Viral syndrome is an illness with signs like you would get with a cold or the flu. A tiny germ called a virus causes this infection. Most people get better in 1 to 2 weeks without treatment. This illness spreads easily from person to person. What care is needed at home? Ask your doctor what you need to do when you go home. Make sure you ask questions if you do not understand what the doctor says. This way you will know what you need to do. Drink lots of water, juice, or broth to replace fluids lost in runny nose and fever. Suck on ice chips or popsicles to ease throat pain. Get lots of rest and sleep. Sleep helps your body get back the energy it needs. Stay away from others until you are feeling better. What follow-up care is needed? Your doctor may ask you to make visits to the office to check on your progress. Be sure to keep these visits. What drugs may be needed? The doctor may order drugs to: Help with pain Lower fever Help with pain from a sore throat Help a runny or stuffy nose Ease or stop coughing Will physical activity be limited? You need to rest while you are getting better. This means you may need to limit your activity untilyou feel well. What changes to diet are needed? Eat foods that will not upset your stomach like chicken soup, bananas, rice, apples, or toast. What problems could happen? Lung problems like pneumonia and bronchitis Too much fluid loss Infection What can be done to prevent this health problem? If you are sick, cover your mouth and nose with tissue when you cough or sneeze. You can also coughinto your elbow. Throw away tissues in the trash and wash your hands after touching used tissues. Wash your hands often with soap and water for at least 20 seconds, especially after coughing or sneezing. Alcohol-based hand sanitizers also work to kill the virus. Do not get too close (kissing, hugging) to people who are sick. Stay away from crowded places. Do not share towels or hankies with anyone who is sick. Clean commonly handled things like door handles, remotes, toys, and phones. Wipe them with a disinfectant. Take vitamin C to help build up your body's ability to fight disease. Get a flu shot each year. When do I need to call the doctor? Signs of infection. These include a fever of 100.4??F (38??C) or higher, chills, very bad sore throat, ear or sinus pain, cough, more sputum or change in color of sputum, and mouth sores. Trouble breathing Very bad throwing up or throwing up that does not stop Health problem is not better or you are feeling worse Teach Back: Helping You Understand The Teach [...] tell you what may help ease my sore throat. I can tell you what I can do to help avoid passing the infection to others. I can tell you what I will do if I have trouble breathing, very bad throwing up, or throwing up that does not stop. Last Reviewed Date 2020-07-20 Consumer Information Use and Disclaimer This generalized [...] or approved for treating a specific patient. [employer] and its affiliates disclaim any warranty or liability relating to this information or the use thereof. The use of this information is governed by the Terms of Use, available at https://www.[employer]/en/know/fqkxqojd-swvcucmhysobt-dotuj Copyright Copyright ?? 2022 [employer]. and its affiliates and/or licensors. All rights reserved. -Your vital signs were reviewed. -We have [...] the nearest emergency department immediately for evaluation. documented in this encounter Progress Notes * Kendall Rousseau PA - 10/02/2025 12:30 PM EST Subjective: Reason for Visit: Cough (Cough, head pain, congestion and stomach pain, Pt threw up this morning. Symptoms started 2 days ago.) History provided by: self Cough 25-year-old female presents with cough, congestion, stomachaches for 2 days with 1 episode of vomiting this morning. Symptoms caused her to miss work. today. History: Allergies[1] Past Medical History[2] Past Surgical History[3] Current Outpatient Medications: ARIPiprazole, Take 1 tablet (10 mg total) by mouth at bedtime. sertraline, Take 1 tablet (50 mg total) by mouth daily. tretinoin, APPLY PEA-SIZED AMOUNT TO FACE AT BEDTIME , START EVERY OTHER NIGHT AND INCREASE TOLERATED lamoTRIgine, Take 10 mg by mouth daily. ondansetron, Place 1 tablet (4 mg total) onto the tongue every 8 (eight) hours as needed for nauseafor up to 4 days. Objective: BP 107/74 (Site: r a, Position: Sitting, Cuff Size: Large) Pulse 72 Temp 97.5 ??F (36.4 ??C) (Oral) Resp 18 Ht 5' 8 (1.727 m) Wt 117.9 kg SpO2 97% BMI 39.53 kg/m?? No results found. Physical Exam Vitals reviewed. Constitutional: Appearance: Normal appearance. HENT: Head: Normocephalic and atraumatic. Nose: Nose normal. Eyes: Conjunctiva/sclera: Conjunctivae normal. Pupils: Pupils are equal, round, and reactive to light. Cardiovascular: Rate and Rhythm: Normal rate and regular rhythm. Pulmonary: Effort: Pulmonary effort is normal. No respiratory distress. Abdominal: General: Abdomen is flat. There is no distension. Palpations: There is no mass. Tenderness: There is no abdominal tenderness. There is no right CVA tenderness, left CVA tenderness, guarding or rebound. Hernia: No hernia is present. Musculoskeletal: General: Normal range of motion. Cervical back: Neck supple. Skin: General: Skin is warm and dry. Neurological: General: No focal deficit present. Mental Status: She is alert and oriented to person, place, and time. Mental status is at baseline. Psychiatric: Mood and Affect: Mood normal. Results for orders placed or performed in visit on 10/02/25 POCT SARS COV-2 (COVID-19) PCR/Influenza A+B (In-Clinic) Result Value Ref Range POC SARS-CoV-2 (COVID-19) PCR Not Detected Not Detected POC Influenza A Not Detected Not Detected POC Influenza B Not Detected Not Detected POC Kit Lot Number [id number] POC Expiration Date 12/27/2026 No orders to display Orders Placed This Encounter Procedures POCT SARS COV-2 (COVID-19) PCR/Influenza A+B (In-Clinic) Procedures Assessment & Plan: Encounter Diagnoses Code Name Primary? R05.1 Acute cough Yes R11.2 Nausea and vomiting, unspecified vomiting type Requested Prescriptions Signed Prescriptions Disp Refills ondansetron (ZOFRAN-ODT) 4 mg disintegrating tablet 12 tablet 0 Sig: Place 1 tablet (4 mg total) onto the tongue every 8 (eight) hours as needed for nausea for up to 4 days. Medical Decision Making: Patient is afebrile nontoxic. Exam is unremarkable. Abdomen is benign. Passed fluid challenge in the clinic. Zofran for symptomatic relief. Likely viral etiology. Work note provided. Advised PCP follow up in 1 week if no improvement with strict return precautions. Dispo: Home Electronically Signed by RANJITH Vergara, October 02, 2025 [1] Allergies Allergen Reactions Environmental Allergies Congestion [2] Past Medical History: Diagnosis Date Anemia [3] Past Surgical History: Procedure Laterality Date NO PAST SURGERIES documented in this encounter Plan of Treatment Not on file documented as of this encounter Procedures Procedure Name Priority Date/Time Associated Diagnosis Comments POCT SARS COV-2 (COVID-19) PCR/INFLUENZA A+B ([facility]) Routine 10/02/2025 1:10 PM EST Acute cough documented in this encounter Results * POCT SARS COV-2 (COVID-19) PCR/Influenza A+B (In-Clinic) (10/02/2025 1:10 PM EST) POC SARS-CoV-2 (COVID-19) PCR Not Detected Not Detected POC Influenza A Not Detected Not Detected POC Influenza B Not Detected Not Detected POC Kit Lot Number [id number] POC Expiration Date 12/27/2026 Nasal Swab 10/02/2025 1:10 PM EST Kendall KASPER POINT OF CARE ORDERS W/FUTURE F inal Result documented in this encounter Visit Diagnoses Diagnosis Acute cough- Primary Nausea and vomiting, unspecified vomiting type documented in this encounter Care Teams Brewer Helper Relationship Specialty Start Date End Date Pcp, Does Not Have A PCP - General 12/02/24 documented as of this encounter
--- NOTE | 2025-10-03 09:26 | A.OFFVIS_ITS ---
Vital Signs 10/03/25 09:34 Height 5 ft 8 in Weight 260 lb BMI 39.5 BP 116/70 Intake Visit Reasons: New Patient Annual Intake Note: Last pap smear approx 1 year ago, normal hx. 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 She is establishing care here. She says she has been trying to get for the last couple of years and has been having some difficulty she is at her heaviest that she has ever been right now she does get regular periods she is keeping track of her cycles and the they range from 28-32 days she does have trouble figuring out when she ovulates but she is very sexually active and having sex at least every other day. She is wondering if there is any hormone tests that she can have. She knows that we do not have a birthing center but she is starting with us because of her insurance change. She likes walking for exercise she says her plantar fasciitis is getting a little bit better when she wears her arch supports the problem is her work shoes are flat. She does thinks she has had a little bit of excess facial hair and does have a lot of acne. She had chlamydia as a teenager and has had BV a couple of times she said her boyfriend told her there was a bit of an odor. 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 [facility] Medical History History of heroin abuse Acne Diarrhea Stomachache GERD (gastroesophageal reflux disease) Drug abuse Migraines Surgical History [place] teeth extracted Family History Mother HTN (hypertension) Cardiovascular disease Alcoholism Father HTN (hypertension) Cardiovascular disease Alcoholism Maternal Grandmother High cholesterol Cardiovascular disease Alcoholism Social History Household Members: Children Both parents involved: No Caregiver staying overnight: No Housing: Apartment Are you a primary health care aide to a significant other at home: Yes Do you presently have visiting nurse or other home services: No 75 years or older and lives alone: No Alcohol intake: never Patient Tobacco Use Status: Never used Tobacco e-Cigarette/Vaping Use: Currently Using Second Hand Smoke Exposure: No service: No Current occupational status: employed 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 Cognitive needs: No Hearing needs: No Vision needs: No Female Reproductive History Menstrual Age of Menarche: 11 Duration of menses: <3 days Date of last menstrual period: 09/26/25 control method: none Total pregnancies: 1 Full term: 1 History of abnormal pap smear: No Physical Exam Vital Signs: Last Vital Signs BP 116/70 10/03/25 09:34 BMI result Body Mass Index 39.5 Const General: healthy appearing, comfortable, no acute distress, well developed and alert Nutritional Appearance: average body habitus Orientation/consciousness: patient oriented x3 Limitations: no limitations HEENT Head: Yes normocephalic Neck Neck: Yes normal visual inspection Chest Chest palpation & inspection: normal inspection of the chest Breast/axilla inspection: normal inspection of the breasts and normal inspection of the axillae Breast/axilla palpation: normal palpation of the breasts and normal palpation of the axillae Resp Effort & Inspection: normal respiratory effort GI Inspection: Yes normal to inspection, No Abdominal wall edema and No distended Palpation (GI): Soft to palpation and nontender Other: External exam within normal limits vagina is pink and moist there is a very normal-appearing clear whitish mucus cervix slightly friable with Pap multiparous cervix long close thick mobile nontender large nabothian cysts visible on cervix. Uterus midposition mobile nontender nonenlarged adnexa nonenlarged. General: Yes bladder normal to palpation External Female Exam: normal external appearance and normal appearance of the urethra Speculum Exam - Vagina: normal appearance of the vagina, normal palpation and normal vaginal discharge Speculum Exam - Cervix: normal appearance of the cervix, normal palpation and nontender Bimanual exam- vagina & uterus: normal bimanual exam, normal palpation, uterine size normal, bladder normal to palpation, consistency normal, normal palpation, uterine mobility normal, uterine shape normal, No Cervical tenderness present, non-tender and no cervical motion tenderness Bimanual Exam- Adnexa, other: normal adnexae, no masses, normal and No adnexal tenderness Neuro General: patient oriented x3 Assessment & Plan Assessment & Plan (1) Screen for sexually transmitted diseases: Code(s): Z11.3 - Encounter for screening for infections with a predominantly sexual mode of transmission Category: Medical (2) Acne: Code(s): L70.9 - Acne, unspecified Category: Medical (3) Hirsutism: Code(s): L68.0 - Hirsutism Category: Medical (4) Patient desires : Code(s): Z31.9 - Encounter for procreative management, unspecified Category: Medical (5) History of severe pre-eclampsia: Comment: Delivered at 38 weeks, 5 lb, at [place] 4 years ago. Code(s): Z87.59 - Personal history of other complications of , childbirth and the puerperium Category: Medical Plan -----Discussed in this visit the following: healthy balanced diet, regular and consistent exercise, getting recommended health screens, doing the best she can for her particular health concerns, kegel exercises, pap smear screening and followup recommendations, mammography screening and SBE, normal changes in cycles in her life stage--- . Reviewed how she is keeping track of her periods and having sex regularly and she has very regular periods 28-32 days I can not think of any thing in particular we did discuss PCOS and the relationship between weight and fertility however she is getting regular periods I am ordering a couple of labs and we will have a tele visit after to review there was nothing abnormal on exam either she is taking multivitamins with folic acid she has reviewed her meds with her psychiatrist and has been told that they are okay to take while trying to conceive. I did let her know that we do not have a birthing center and facilities to take care of high-risk pregnancies in this facility so she would need to seek care at a [facility] practice so it might be galvez to be checking out where she would like to go when she does get reviewed that she would probably be on baby aspirin through the and she says she was with the last 1 eat as well but it did not work. She gained most of the weight in her and has not been able to lose it. She was working on weight loss but has taken a little bit of a break from that for now. I did discuss the role of weight in fertility. Orders: Orders Follicle Stimulating Hormone Today L20.9 - Atopic dermatitis, unspecified, L68.0 - Hirsutism, L70.9 - Acne, unspecified, Z31.9 - Encounter for procreative management, unspecified, Z87.59 - Personal history of other complications of , childbirth and the puerperium Hepatitis B Surface Antigen Today Z11.3 - Encounter for screening for infections with a predominantly sexual mode of transmission Hepatitis C Antibody Today Z11.3 - Encounter for screening for infections with a predominantly sexual mode of transmission Syphilis Screen Today Z11.3 - Encounter for screening for infections with a predominantly sexual mode of transmission HIV Ab/Ag Today Z11.3 - Encounter for screening for infections with a predominantly sexual mode of transmission Testosterone, Free/Total Today L20.9 - Atopic dermatitis, unspecified, L68.0 - Hirsutism, L70.9 - Acne, unspecified, Z31.9 - Encounter for procreative management, unspecified, Z87.59 - Personal history of other complications of , childbirth and the puerperium Lutenizing Hormone Today L20.9 - Atopic dermatitis, unspecified, L68.0 - Hi rsutism, L70.9 - Acne, unspecified, Z31.9 - Encounter for procreative management, unspecified, Z87.59 - Personal history of other complications of , childbirth and the puerperium Coding Level of Care Code New Pt Prev Care [id number] Diagnoses Screen for sexually transmitted diseases Z11.3 Acne L70.9 Hirsutism L68.0 Patient desires Z31.9 History of severe pre-eclampsia Z87.59
[2025-10-03 09:34] VITALS: BP 116/70; BMI 39.5
--- OUTSIDE RECORDS SUMMARY | 2025-10-03 10:25 | XMS_ITS | Clinical Summary ---
Author Organization [facility] Address [address] [place] [address] Care Team Providers Care Neck Band Operator Name Role Phone Venancio Chaudhari MD Primary Care Provider [phone] Blake Ye [facility] Unavailable Allergies No known active allergies [...] series) 2019 Pap Smear (Ages 21-65) 2021 Influenza Vaccine 06/27/2025 COVID-19 Vaccine (2023-2 5 season) 2025 Hepatitis C Virus Screening Completed 07/28, 07/09/2019 [...] ORDERABLES Final Res ult Performing Organization Address City/State/[facility] Co de Phone Number [facility] [address] [place], [place] * (ABNORMAL) Hepatitis C Virus (HCV) Antibody (08/12/2020 2:42 PM EDT) Hepatitis C Antibody 9.62 Reactive(A ) Non-Reacti ve S/CO [facility] Comment: CDC recommends a tfgjeo-cg-tpfcqk (S/CO) ratio equal to or >5 to predict true infection 95% of the time. Low reactive results (1.0-4.99 S/CO) should be confirmed by HCV nucleic acid testing. Other 08/12/2020 2:42 PM EDT 08/13/2020 1:51 AM EDT Narrative [facility] - 08/13/2020 11:03 AM EDT FASTING:NO us Syd Woods DO LAB BLOOD ORDERABLES Amber too Result Performing Organization Address City/State/[facility] Co de Phone Number [facility] [address] [place], [place] from Last 3 Months or Most Recently Relevant to Health Maintenance [place] [id number] Advance Directives * Full Code (Latest Code [...] 10:22 PM 12/29/2017 10:15 PM Care Teams Neck Band Operator Relationship Specialty Start Date End Date Venancio Chaudhari MD [address] [facility] [address] [place] [address] PCP - General Pediatric, General 11/09/17 Blake Ye RPH [address] [facility] [place] [address] Pharmacist 11/10/17
--- OUTSIDE RECORDS SUMMARY | 2025-10-03 10:25 | XMS_ITS | Encounter Summary ---
Author Organization [facility] Address [address] [place] [address] Care Team Providers Care Sheep Boner Name Role Phone Marina Souza NP Primary Care Provider + Encounter Details Date Type Department Care Team Description 03/03/2021 Records Encounter [facility] OFFICE [address] [place] [address] Provider, Not In System Social History Tobacco [...] on filedocumented in this encounter Care Teams Sheep Boner Relationship Specialty Start Date End Date Marina Souza NP [address] [place] [address] PCP - General Family Medicine 08/23/21 documented as of this encounter
--- OUTSIDE RECORDS SUMMARY | 2025-10-03 10:25 | XMS_ITS | Clinical Summary ---
Author Organization [facility] Address [address] [place] [address] Care Team Providers Care Supervisor Screen Making Name Role Phone Marina Souza NP Primary [...] Advance Directives For more information, please contact: [phone] Latest Code Status on File Code Status [...] way: discussion with patient . Care Teams Supervisor Screen Making Relationship Specialty Start Date End Date Marina Souza NP [address] [place] [address] PCP - General Family Medicine 08/23/21
--- OUTSIDE RECORDS SUMMARY | 2025-10-03 10:25 | XMS_ITS | Clinical Summary ---
Author Organization [address] Address [address] [place] [id number] Care Team Providers Care Egg Breaker Name Role Phone Pcp, Does Not Have A Primary Care Provider Unava ilable Allergies Active Allergy Reactions Criticality Noted Date Comments Environmental Allergies Congestion 10/02/2018 Medications ARIPiprazole (ABILIFY) 10 mg tablet Take 1 tablet (10 mg total) by mouth at bedtime. 06/27/20 24 Active sertraline (ZOLOFT) 50 mg tablet Take 1 tablet (50 mg total) by mouth daily. 08/28/20 24 Active tretinoin (RETIN-A) 0.025 % cream APPLY PEA-SIZED AMOUNT TO FACE AT BEDTIME , START EVERY OTHER NIGHT AND INCREASE TOLERATED 07/03/20 24 Active lamoTRIgine (LAMICTAL ODT) 25 mg (21) -50 mg (7) BLUE starter pack disintegrating tablet Take 10 mg by mouth daily. Active ondansetron (ZOFRAN-ODT) [address] 1 tablet (4 mg total) onto the tongue every 8 (eight) hours as needed for nausea for up to 4 days. 12 tablet 10/02/20 25 Active ferrous sulfate (FEOSOL) 325 mg (65 mg iron) tablet Take 1 tablet (325 mg total) by mouth Every other day. Discontinu ed(!Delete Cleanup (No Cancel Msg)) gabapentin (NEURONTIN) 300 mg capsule Take 1 capsule (300 mg total) by mouth at bedtime. 06/22/20 24 Discontinu ed(!Delete Cleanup (No Cancel Msg)) prazosin (MINIPRESS) 1 mg capsule 025 Discontinu ed(!Delete Cleanup (No Cancel Msg)) benztropine (COGENTIN) 0.5 mg tablet Take 1 tablet (0.5 mg total) by mouth every 12 (twelve) hours. 06/28/20 24 025 Discontinu ed(!Delete Cleanup (No Cancel Msg)) albuterol sulfate 90 mcg/actuation HFA aerosol inhalerIndications :Acute cough Inhale 2 puffs into the lungs every 6 (six) hours as needed for wheezing. 18 g 12/25/19 25 025 Discontinu ed(!Delete Cleanup (No Cancel Msg)) Active Problems Problem Noted Date Diagnosed Date Nausea and vomiting, unspecified vomiting type 1 12/02/2024 Acute cough 12/25/2024 COVID-19 12/02/2024 Fever, unspecified fever cause 12/02/2024 Encounters Date Type Department Care Team Description 10/02/2025 12:30 PM EST Office Visit [facility] [address] [place] [address] Kendall Rousseau, PA Acute cough (Primary Dx); Nausea and vomiting, unspecified vomiting type from Last 3 Months Immunizations Immunization Administration Dates Next Due DTaP, [...] Mass Index 39.53 10/02/2025 12:42 PM EST Plan of Treatment Health Maintenance Due Date Last Done Comments Hepatitis C screening 2018 Cervical cancer screening 2021 DTaP/TDaP Vaccines (7 - Td or Tdap) 05/13/2021 05/13/2011, 04/30/2004, 10/29/2001, Additional history exists Tetanus adult (Td q 10,TDAP once) 05/13/2021 05/13/2011 Influenza vaccine 06/27/2025 11/25/2022, , 11/09/2017, Additional history exists Covid-19 vaccine series ( - 2024-26 season) 2025 RSV Immunization (1 - 1-dose 75+ series) [...] Comments POCT SARS COV-2 (COVID-19) PCR/INFLUENZA A+B ([facility]) Routine 10/02/2025 1:10 PM EST Acute cough from Last 3 Months Results * POCT SARS COV-2 (COVID-19) PCR/Influenza A+B (In-Clinic) (10/02/2025 1:10 PM EST) POC SARS-CoV-2 (COVID-19) PCR Not Detected Not Detected POC Influenza A Not Detected Not Detected POC Influenza B Not Detected Not Detected POC Kit Lot Number [id number] POC Expiration Date 12/27/2026 Nasal Swab 10/02/2025 1:10 PM EST us Kendall KASPER POINT OF CARE ORDERS W/FUTURE F inal Result from Last 3 Months Insurance [id number] MEDICAID [employer] [facility] [id number] MEDICAID [employer] [facility] [id number] MEDICAID [facility] Care Teams Egg Breaker Relationship Specialty Start Date End Date Pcp, Does Not Have A PCP - General 12/02/24
--- OUTSIDE RECORDS SUMMARY | 2025-10-03 10:25 | XMS_ITS | Clinical Summary ---
Author Organization [facility] Address [address] [place] [address] Care Team Providers Care Auditor Internal Name Role Phone Venancio Chaudhari MD Primary Care Provider [phone] Source Comments Please note that some or [...] so, obtain the minor's consent prior to disclosure.[facility] Allergies No known active allergies Medications [...] 11/06/2018 11/06/2017 COVID-19 Vaccine (2023-2 5 season) 2025 INFLUENZA (#1) 2025 11/09/2017 NIRSEVIMAB VACCINES UNDER 8 MONTHS [...] EST) HIV 1/2 Ag/Ab CMIA Nonreactive Nonreactive [facility] Comment: Results show no evidence of infection by HIV 1/2. If clinically indicated, repeat CMIA or test by nucleic acid amplification. [facility] - [address] [place] [address] CLIA #:[id number] Tacos Iglesias MD Press Machine Operator 11/06/2017 2:00 PM EST 11/07/2017 1:25 PM EST [place] [facility] [place] LAB BLOOD ORDERABLES Fi nal Result [facility] [address] [place] [address], [facility] [phone] from Last 3 Months or Most Recently Relevant to Health Maintenance Insurance [email or web address] [facility] [email or web address] AMBERLY Ravi Care Teams Auditor Internal Relationship Specialty Start Date End Date Venancio Chaudhari MD [address] [facility] [address] [place], [place] [address] PCP - General General Pediatrics 09/21/16
--- OUTSIDE RECORDS SUMMARY | 2025-10-03 10:25 | XMS_ITS | Clinical Summary ---
Author Organization [facility] Address [address] [place] [address] Care Team Providers Care Retail Salesman Name Role Phone Marina Souza ANA MARIA [...] 5 season) 2025 Influenza Vaccine (#1) 2025 RSV Immunization Adult Patie nts (1 - 1-dose 75+ series) 2075 HIB Vaccines Aged Out No longer eligi [...] age to complete this topic Care Teams Retail Salesman Relationship Specialty Start Date End Date Marina Souza NP PCP - General Family Medicine 08/23/21
--- OUTSIDE RECORDS SUMMARY | 2025-10-03 10:26 | XMS_ITS | Data Portability ---
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 antecub fossae [...] for surgical eval and u/s. Discussed with [facility] [place], they will see her now. [id number] Venancio Chaudhari MD [address] [address] 12/14/2017 13:02:03 12/14/2017 14:02:59 Eczema 65248513 L30.9 Discussed emollients Upper resp iratory infection 61432873 J06.9 Discussed supp care and expected course. Recheck PRN Substance abuse 72064044 F19.10 In PHP program at [facility] - overdose x 2 in the last 2 months. 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 Currently in OP program at [place] - on meds and mom involved. Reports good mood todayHad HIV/Hep B testing at most recent admission Will return in 1 month for Hep B #3 and recheck [id number] Venancio Chaudhari MD [place] [phone] 03/29/2018 13:03:33 03/29/2018 16:55:27 Infective hepatitis immunization 896304911 Z23 VC obtained Vomiting 541527180 R11.1 0 Has been having vomiting recently with worsening of her headaches -suspect related to substance use, poor sleep, poor diet (has gained a lot of weight). UPT negative. Will make consult appt if sx persisting . Substance abuse 00676957 F19.10 Pt with h/o substance use - denies use x 4 weeks but I am concerned that she is using again as is mom. She denies and will be starting another program at the [facility]. 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 I put in a call to Danica's DCF worker to let them know about this. Blister 572439142 R23.8 Has blisters on her feet b/l - no evidence of acute infection currently but discussed wound care extensivel y. Will use topical antibiotic , keep clean and wear supportive footwear.I do not see track piper and blisters are consistent with her story but I stressed importance of recheck if sx worsening [id number] Venancio Chaudhari MD [facility] [address] [address] 06/29/2018 08:55:06 06/29/2018 09:57:35 Dysuria 01886401 R30.0 Urinary tr act infectious disease 15186374 N39.0 Udip suspicious so will start her on antibiotic s. If cx neg will DC (confirmed pt's cell number in chart). If sx worsening despite meds will RTO Substance abuse 61874362 F19.10 Looks well today- boyfriend of overdose last month. She does have narcan. Encouraged to get back in with therapist [id number] Venancio Chaudhari MD [facility] [address] [place] [address] 07/06/2018 14:31:00 07/06/2018 16:33:39 Adult health examination 400703077 Z00.01 18 year old female with substance abuse issues - hospitaliz ations this past year but completed program and currently clean.Had HIV/Hep B testing at most recent hospital admission this springJust had negative urine screen last week at acute visit - followed by national sales representative as well Normal bod y mass index 85334208 Z68.22 Weight had jumped up 15 lbs after last hospitaliz ation but now back to her baseline weight. Substance abuse 93062655 F19.10 Boyfriend of overdose last month. She does have narcan. Has services through [facility] but looking to transition to closer provider. Anxiety 48103938 F41.9 On Lexapro - followed by psychiatri [id number] Venancio Chaudhari MD [address] [address] 09/10/2019 12:24:03 09/10/2019 13:58:04 Adult health examination 317209409 Z00.00 18 year old female with substance abuse issues - reports being clean x 6 mos since going to rehab. Plans to go to college in spring which I encourage. Is still very at risk given her risk of relapsing into substance use. Lives with parents who have been supportive Sees national sales representative and has screens there. On OCP, didn't tolerate nuvaring but would be a great candidate for IUD/nexpla non. Encouraged to discuss with national sales representative Normal bod y mass index 89510328 Z68.1 Says weight is actually up from where it was last month. Increased body mass index 84586140 E66.3 Substance abuse 50405754 F19.10 Went to rehab 02/12 and reports being clean since then. Discussed importance of her finding a new therapist even though things are going well now.Report s only juuling - discussed risks associated Anxiety 97714796 F41.9 Off all meds and reports doing well [id number] Lupe Jha MD [place] [address] 11/22/2019 16:55:29 11/22/2019 19:31:01 Impacted cerumen in right ear [id number] 849531 H61.21 [id number] Venancio Chaudhari MD [place] [address] 12/10/2019 14:55:36 12/10/2019 16:40:41 Impacted cerumen 66324546 H61.21 R EAC cleared with flushing and curettage. Discussed Q tip use. f/U PRN [id number] Venancio Chaudhari MD [place] [address] 2 09/18/2020 11:24:27 09/18/2020 13:29:37 Adult health examination 882409003 Z00.00 20 year old female with longstandi ng h/o substance abuse issues, recently completed a 6 [facility] stay [facility] and is now 3 months .W ill be transition ing to adult medicine after this visit.Cons idering returning to college next year - lots of encouragem ent given. Diet education 68323092 Z71.3 Exercises education, guidance, and counseling 744984779 Z71.82 Increased body mass index 51906812 E66.3 Influenza vaccine needed [id number] 106 Z23 VC obtained for flu. Substance abuse 87124127 F19.10 Completed [facility] in [facility] [...] Recorded Advance Directives Directive None Recorded Payers Insurance Date Sequence Insurance Name Policy Number Policy Ceja Covered Member ID Ceja Member ID Guarantor Name 09/17/2020 1 [facility] [id number] Amada Haro [id number] Jennifer P Perretta 09/17/2020 2 [place] - HUSKY D - SCOTT Danica Perretta [id number] Jennifer Paramjit Perretta 09/10/2019 1 [facility] [facility] - EP1 - CHOICE [id number] Jennifer P Perretta [id number] Jennifer P Perretta Notes Date Note Type Note Provider Name and Address Organization Details Recorded Time 11/22/2019 text/html RS Sick Visit Narrative HistoryReported by PatientRight ear feels blocked and SHEA x3-4 days. Tried ear drops and used a warm compress.ROS as noted in the HPI LUPE bullard, [facility] 11/22/2019 17:54:14 12/10/2019 text/html RS Sick Visit Narrative HistoryReported by Patient1) RECHECK---11/22 impacted cerumen in right ear. Has been using the Debrox 1/2 x/day. Right ear still with blocked sensation but slightly improved and now with left ear feeling blocked x 2 days. Mostly pressure but not pain. No coughing.2) 2 days with nasal congestion, SHEA and head pressure. Afebrile.ROS as noted in the HPI Venancio Chaudhari MD [address] [place] [address], [phone], [facility] 12/10/2019 17:47:07 OBGyn Episode No OBEpisode recorded.
== END 2025-10-03 10:17 | disposition home or self-care (01) ==
LOC: HO.HWS 09:16
PROVIDERS: PCP Nurse Practitioner Family; Visit Provider Advanced Practice Midwife
DX: Z01.419 Encounter for gynecological examination (general) (routine) without abnormal findings (principal); L70.9 Acne, unspecified; L68.0 Hirsutism; Z11.3 Encounter for screening for infections with a predominantly sexual mode of transmission; Z31.9 Encounter for procreative management, unspecified; Z87.59 Personal history of other complications of pregnancy, childbirth and the puerperium
CPT/HCPCS: 99385; 99459

== ENCOUNTER 2025-10-03 09:15 | Outpatient (REF) | payer OTHER, SELFPAY ==
--- OUTSIDE RECORDS SUMMARY | 2025-10-03 12:18 | XMS_ITS | Clinical Summary ---
Author Organization [facility] Address [address] [place] [address] Care Team Providers Care Electronic Installer Name Role Phone Unavailable Primary Care Provider Unavailabl e Source Comments PLEASE NOTE, if this patient is a minor, it may be UNLAWFUL to discuss sensitive information that is contained in these records (such as FAMILY PLANNING, MENTAL HEALTH or SUBSTANCE ABUSE) with the minor patient's parent or other person without the patient's specific authorization.[facility] Allergies No known active allergies Medications gabapentin (NEURONTIN) 300 mg capsuleIndicati ons:History of substance use,PTSD (post-traumatic stress disorder),Anxie ty and depression One tab daily 30 Capsule 04/14/2022 Active QUEtiapine (SEROQUEL) 100 mg tabletIndicatio ns:History of substance use,PTSD (post-traumatic stress disorder),Anxie ty and depression TAKE ONE TAB BY MOUTH NIGHTLY 30 Tablet 1 07/01/2022 Active prazosin (MINIPRESS) 2 mg capsuleIndicati ons:History of substance use,PTSD (post-traumatic stress disorder),Anxie ty and depression Take 1 tab by mouth at bed time 30 Capsule 1 07/01/2022 Active sertraline (ZOLOFT) 100 mg tabletIndicatio ns:Anxiety and depression,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 Take 1 Tablet by mouth once daily Take 1 tab 100 mg + 1/2 tab 50 mg =150 mg 35 Tablet 1 07/01/2022 Active Active Problems Problem Noted Date Diagnosed Date Hepatomegaly with splenomegaly, not elsewhere cl assified 03/02/2022 Overview (04/04/2022): 01/2022- CT scan findings (done at ED in [place]) 02/2022- Follow up US ordered Hx of Chronic Hep C treated with neg RNA findings 01/2022 Hep B Ag ordered - not done yet Will determine further follow up after labs/ imaging 02/2022- top normal sized spleen and liver Small calcified focus in spleen- consider repeat in 3-6 months Bilateral ovarian cysts 03/02/2022 Overview (03/28/2022): 01/2022- CT abd / pelvis: Diminished enhancement centrally within the uterus. Multiple small ovarian cysts. 02/2022- pelvic US ordered- Normal Abnormal finding present on diagnostic imaging o f uterus 03/02/2022 Overview (03/02/2022): 01/2022- CT abd/ pelvis: Diminished enhancement centrally of the uterus. Differential diagnosis of uterine/endometrial mass versus enhancement secondary to hormonal influence of menstrual cycle. As clinically indicated follow-up pelvic ultrasound could be obtained. 02/2022- pelvic US ordered History of substance use 02/09/2022 Overview (02/09/2022): Sober since 01/2020: Fentanyl, Cocaine Currently: Gabapentin, sertraline, seroquel, prozosin [facility] Diagnosis Has presriber every 2 weeks and Therapist 1x week at program and outside therapist weekly as well PTSD, Depression, Anxiety Hyperlipidemia 02/09/2022 Overview (03/02/2022): Reports dx by former PCP in May 2021 and was placed on Vescepa but ran out and did not follow up for repeat testing 01/2022- TC 236, hdl 34, trig 278, ldl 156, non hdl 202 Reviewed dietary modifications and exercise Will recheck lipids in June 2022 Chronic hepatitis C without hepatic coma 022 Overview (03/02/2022): Treated x 12 weeks with Epclusa Patient reports 3 mo and 6 mo follow up testing showed infection cleared Denies any hx of substance use since treated 01/2022- alt/ ast normal, hep c quant undetectable PTSD (post-traumatic stress disorder) 02/09/2022 Overview (02/09/2022): 01/2022- [facility] in [place] Dual Diagnosis Has presriber every 2 weeks and Therapist 1x week at program and outside therapist weekly as well Anxiety and depression 02/09/2022 Overview (02/09/2022): 01/2022- [facility] in [place] Dual Diagnosis Has presriber every 2 weeks and Therapist 1x week at program and outside therapist weekly as well Family History Medical History Relation Name Comments Alcohol abuse Father Alcohol abuse Mother Relation Name Status Comments Father Mother Social History Tobacco Use Types Packs/Day Years Used Date Smoking Tobacco: Never Smokeless Tobacco: Never Alcohol Use Standard Drinks/Week Comments Not Currently 0 (1 standard drink = 0.6 oz pure alcohol) Parents alcoholics, avoid etoh use Social Connections Answer Date Recorded Connectedness 0 08/09/2024 Financial Resource Strain Answer Date R ecorded Financial Resource Strain 0 2021 Stress Answer Date Recorded Stress 0 02/09/2022 Physical Activity Answer Date Recorded Physical Activity 0 02/09/2022 Food Insecurity Answer Date Recorded Food 0 08/22/2024 Transportation Needs Answer Date Record ed Transportation 0 02/09/2022 Housing Stability Answer Date Recorded Housing 0 02/09/2022 Safety and Environment Answer Date Macario rded Safety 0 02/09/2022 Utilities Answer Date Recorded Utilities 0 02/09/2022 Employment Answer Date Recorded Stress 0 08/09/2024 Comments Unknown Sex and Gender Information Value Date Recorded Sex Assigned at Female 02/09/2022 9:34 AM PDT Legal Sex Female 9:04 AM PDT Gender Identity Female 02/09/2022 9:34 AM PDT Sexual Orientation Straight 02/09/2022 9: 34 AM PDT Plan of Treatment Health Maintenance Due Date Last Done Comments Anxiety Screening 2000 Depression Monitoring 2000 HPV Screening (self-collect) 2000 HPV Screening 2000 Pap + HPV 2000 Tobacco Screening 2000 Imm-Varicella (1 of 2 - 13+ 2-dose series) 2013 HIV Screening 2015 Imm-HPV (1 - 3-dose series) 2015 Relationship Safety Screening/Counseling 2015 Hypertension Screening (#1) 2018 Imm-DTaP/Tdap/Td (1 - Tdap) 2019 Imm-Hepatitis A (1 of 2 - Ri sk 2-dose series) 2019 Imm-Hepatitis B (1 of 3 - 19 + 3-dose series) 2019 Imm-Pneumococcal (1 of 2 - PCV) 2019 Cervical Cancer Screening 2021 Pap Smear 2021 Lipid Screening 02/18/2023 02/18/2022 Diabetes Screening 02/21/2023 02/21/2022, 0 02/18/2022, 03/02/2021 Alcohol and Drug Screen 11/27/2024 [id number] ( - season) 2025 Imm-Influenza (#1) 2025 Imm-RSV (adult) (1 - 1-dose 75+ series) 2075 Cervical Ablation/Cold-Knife Conization Discontinued Cervical Cryotherapy Discontinued Colposcopy Discontinued Excision/Leep Discontinued HPV Genotyping Discontinued Vaginal Pap Discontinued Vulvoscopy Discontinued Procedures Procedure Name Priority Date/Time Associated Diagnosis Comments COMPREHENSIVE METABOLIC PANEL Routine 02/18/2022 2:11 PM EDT Chronic hepatitis C without hepatic coma (HCC-CMS) LIPIDS W RFLX TO DIRECT LDL Routine 02/18/2022 2:11 PM EDT Hyperlipidemia, unspecified hyperlipidemia type from Last 3 Months or Most Recently Relevant to Health Maintenance Results * (ABNORMAL) LIPIDS W RFLX TO DIRECT LDL (02/18/2022 2:11 PM EDT) Pathologist [facility] CHOLESTEROL, TOTAL 236(H) <200 mg/dL [facility] HDL CHOLESTEROL 34(L) > OR = 50 mg/dL [facility] TRIGLYCERIDES 278(H) <150 mg/dL [facility] Comment: If a non-fasting specimen was collected, consider repeat triglyceride testing on a fasting specimen if clinically indicated. Verna et al. J. of Clin. Lipidol. 2015;9:129-169. LDL-CHOLESTEROL 156(H) 99 mg/dL (calc) [facility] Comment: Reference range: <100 Desirable range <100 mg/dL for primary prevention; <70 mg/dL for patients with CHD or diabetic patients with > or = 2 CHD risk factors. LDL-C is now calculated using the Mukund-Izaguirre calculation, which is a validated novel method providing better accuracy than the Friedewald equation in the estimation of LDL-C. Mukund SS et al. TAWNY. 2013;310(19): 7849-0161 (http://education.Svpply/faq/QLU696) CHOL/HDLC RATIO 6.9(H) <5.0 (calc) [employer] NON-HDL CHOLESTEROL 202(H) <130 mg/dL (calc) [facility] Comment: For patients with diabetes plus 1 major ASCVD risk factor, treating to a non-HDL-C goal of <100 mg/dL (LDL-C of <70 mg/dL) is considered a therapeutic option. Blood Blood / Unknown 02/18/2022 2 :11 PM EDT 02/18/2022 2:11 PM EDT Narrative [facility] - 02/21/2022 2:15 AM EDT FASTING:YES [facility] - BLOOD DRAW Final Resul t [facility] [address] [address], [facility] [address] [address] * (ABNORMAL) COMPREHENSIVE METABOLIC PANEL (02/18/2022 2:11 PM EDT) GLUCOSE 92 65 - 99 mg/dL [facility] Comment: Fasting reference interval UREA NITROGEN (BUN) 18 7 - 25 mg/dL [facility] CREATININE (blood) 0.77 0.50 - 1.10 mg/dL [facility] GFR ESTIMATED 110 > OR = 60 mL/min/1 .73m2 [facility] EGFR 128 > OR = 60 mL/min/1 .73m2 [facility] BUN/CREATININE RATIO NOT APPLICABLE 6 - 22 [facility] SODIUM 136 135 - 146 mmol/L [facility] POTASSIUM 4.2 3.5 - 5.3 mmol/L [facility] CHLORIDE 101 98 - 110 mmol/L [facility] CARBON DIOXIDE 23 20 - 32 mmol/L [facility] CALCIUM 10.2 8.6 - 10.2 mg/dL [facility] PROTEIN, TOTAL 8.2(H) 6.1 - 8.1 g/dL [facility] ALBUMIN 4.7 3.6 - 5.1 g/dL [facility] [place] [employer] GLOBULIN 3.5 1.9 - 3.7 g/dL (calc) [facility] [place] [employer] ALBUMIN/GLOBUL IN RATIO 1.3 1.0 - 2.5 (calc) [facility] BILIRUBIN, TOTAL 0.6 0.2 - 1.2 mg/dL [facility] ALKALINE PHOSPHATASE 62 31 - 125 U/L [facility] AST 14 10 - 30 U/L [facility] ALT 16 6 - 29 U/L [facility] Blood Blood / Unknown 02/18/2022 2 :11 PM EDT 02/18/2022 2:11 PM EDT Narrative [facility] - 02/21/2022 2:15 AM EDT FASTING:YES [facility] - BLOOD DRAW Edited Resu lt - Final [facility] [place] [facility] [address] [address], [facility] [place] [facility] [address] [address] from Last 3 Months or Most Recently Relevant to Health Maintenance Insurance [facility]
[2025-10-03 12:38] LABS: HBsAGNum1 0.37 S/CO (0.00-0.99); HIV Num 1 0.06 S/CO (0.00-0.99); Hepatitis B Surface Antigen Negative (Negative); ~HepC Num1 7.38 S/CO (0.00-0.79); ~Hepatitis C Antibody Reactive (Nonreactive)
[2025-10-03 12:40] LABS: Syphilis Screen Nonreactive (Nonreactive)
[2025-10-04 04:19] LABS: Follicle Stimulating Hormone 6.4 mIU/mL
== END 2025-10-03 09:16 | disposition home or self-care (01) ==
LOC: HO.LAB 09:15
PROVIDERS: PCP Nurse Practitioner Family; Visit Provider Advanced Practice Midwife
DX: Z11.3 Encounter for screening for infections with a predominantly sexual mode of transmission (principal); Z11.4 Encounter for screening for human immunodeficiency virus [HIV]; Z11.59 Encounter for screening for other viral diseases; L68.0 Hirsutism; L20.9 Atopic dermatitis, unspecified; L70.9 Acne, unspecified; L73.9 Follicular disorder, unspecified; Z31.9 Encounter for procreative management, unspecified; Z87.59 Personal history of other complications of pregnancy, childbirth and the puerperium
CPT/HCPCS: 36415; 83001; 83002; 84402; 84403; 86780; 86803; 87340; 87389; 99385

== ENCOUNTER 2025-10-03 11:27 | Outpatient (REF) | payer OTHER, SELFPAY ==
[2025-10-03 20:41] LABS: Bacterial Vaginosis PCR NEGATIVE (Negative); Candida Group PCR NOT DETECTED (Not Detect); Candida glab krusei PCR NOT DETECTED (Not Detect); Trichomonas vaginalis PCR NOT DETECTED (Not Detect)
[2025-10-03 21:52] LABS: CT PCR NOT DETECTED (Not Detect.); NG PCR NOT DETECTED (Not Detect.)
== END 2025-10-03 11:28 | disposition home or self-care (01) ==
LOC: HO.LNP 11:27
PROVIDERS: Visit Provider Advanced Practice Midwife
DX: Z01.419 Encounter for gynecological examination (general) (routine) without abnormal findings (principal); L68.0 Hirsutism; L20.9 Atopic dermatitis, unspecified; L70.9 Acne, unspecified; Z31.9 Encounter for procreative management, unspecified; Z87.59 Personal history of other complications of pregnancy, childbirth and the puerperium; Z20.2 Contact with and (suspected) exposure to infections with a predominantly sexual mode of transmission
CPT/HCPCS: 81515; 87491; 87591; 88175

== ENCOUNTER 2025-10-16 13:12 | Outpatient (AMB) | payer OTHER, SELFPAY ==
--- NOTE | 2025-10-16 13:13 | A.OFFVIS_ITS ---
Intake Visit Reasons: Lab results Allergies No Known Allergies Allergy (Verified 10/16/25 13:13) Medication List - Last Reconciled 10/16/25 by Mickie Juarez CNM aripiprazole (Abilify) 15 mg PO DAILY diclofenac sodium 1% (Voltaren Arthritis Pain) 2 grams topical QID lamotrigine 200 mg PO DAILY ondansetron 4 mg PO Q8H PRN sertraline (Zoloft) 50 mg PO DAILY Is last menstrual period known: Yes Last menstrual period: 09/22/25 HPI HPI Lab results: Details: Patient is having a tele visit to review her lab results done primarily to explore PCOS type systems of increased facial hair and short menses. She and her partner hoping to get she gets very regular menses she has a history of a high-risk with preeclampsia that was induced and delivered at 38 weeks in the past. I reviewed her labs with her today and reviewed the significance of them. For the hep C positive she was treated in [place] after her with 12 weeks of treatment and was told that she was okay after that but that the hep C may show back active again in the future which it now is. She is attempting to get I did tell her that we do not have a birthing center associated with her facility any longer and since she has a high-risk history she would be best advised to seek care from the very start of a at [facility] so that proper testing a concern could be ordered early in the in any screens necessary would be done then discussed. I did discuss that it would be good for her to be on her vitamin or a multivitamin with folic acid and also that they might treat her in the with baby aspirin. The hormonal levels were all within the normal range including the testosterone FSH LH. [facility] Medical History History of heroin abuse Acne Diarrhea Stomachache GERD (gastroesophageal reflux disease) Drug abuse Migraines Surgical History Osprey teeth extracted Family History Mother HTN (hypertension) Cardiovascular disease Alcoholism Father HTN (hypertension) Cardiovascular disease Alcoholism Maternal Grandmother High cholesterol Cardiovascular disease Alcoholism Social History Household Members: Children Both parents involved: No Caregiver staying overnight: No Housing: Apartment Are you a primary transitional care nurse to a significant other at home: Yes Do you presently have visiting nurse or other home services: No 75 years or older and lives alone: No Alcohol intake: never Patient Tobacco Use Status: Never used Tobacco e-Cigarette/Vaping Use: Currently Using Second Hand Smoke Exposure: No service: No Current occupational status: employed 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 Cognitive needs: No Hearing needs: No Vision needs: No Female Reproductive History Menstrual Age of Menarche: 11 Duration of menses: <3 days Date of last menstrual period: 09/22/25 control method: none Date of last pap smear: 10/03/25 Telehealth Telehealth Telehealth Platform: Telephone Location of provider rendering services: practice address Location of patient: address on file Patient Identification confirmed using: Name, : Yes Telehealth method: voice only Patient verbally consented to treatment: Yes Patient verbally consented to billing insurance company: Yes Patient informed of any privacy concerns related to visit: Yes Minutes spent on Phone/Video with Pt.: 12 (100% spent reviewing her labs with her on the phone and reviewing her past treatment...) Results Reviewed Results Reviewed: RUN: 10/16/25 [address] [facility] [address] [place] [address] Independent Film Maker: Syd Cuevas M.D. Specimen Inquiry Name: Danica Haro Age/Sex: 25/F : 2000 Unit#: [id number] Attend Dr: Mickie Juarez CNM Re10/03/25 Status: DEP REF Location: .LAB Disch: SPEC : [id number] BRAYAN: 10/03/25 STATUS: COMP REQ : [id number] RECD: 10/03/[address] [facility] [address]: Mickie Juarez [facility] COMP: 10/14/25 ENTERED: 10/03/[address] [facility] [address]: Teresa Phillips [facility] ORDERED: FSH, LH, Testost Fr & T Test Result Flag Reference FSH 6.4 mIU/mL Reference Range Follicular Phase 2.5-10.2 Mid-cycle Peak 3.1-17.7 Luteal Phase 1.5- 9.1 Postmenopausal 23.0-116.3 THIS TEST WAS PERFORMED AT: [facility] [address] [place] [phone] HERMANN ALARCON MD LH 8.5 mIU/mL Reference Range Follicular Phase 1.9-12.5 Mid-Cycle Peak 8.7-76.3 Luteal Phase 0.5-16.9 Postmenopausal 10.0-54.7 THIS TEST WAS PERFORMED AT: [facility] [address] [place] [phone] HERMANN ALARCON MD Testost, Tot 32 2-45 ng/dL For additional information, please refer to [email or web address]/faq/ [email or web address] (This link is being provided for informational/ educational purposes only.) This test was developed and its analytical performance characteristics have been determined by [employer] [place], [place]. It has not been cleared or approved by the U.S. Food and Drug Administration. This assay has been validated pursuant to the CLIA regulations and is used for clinical purposes. For additional information, please refer to http://[employer]/faq/[email or web address] (This link is being provided for informational/ educational purposes only.) This test was developed and its analytical performance characteristics have been determined by [employer]. It has not been cleared or approved by the FDA. This assay has been validated pursuant to the CLIA regulations and is used for clinical purposes. Testost, Free Test not performed pg/mL TEST(S) NOT PERFORMED: TESTOSTERONE, FREE TEST NOT PERFORMED. Quantity not sufficient. THIS TEST WAS PERFORMED AT: [employer] [address] [place], [place] LAINE PRICE MD,PHD END OF REPORT Name: Danica Haro Age/Sex: 25/F : 2000 Unit#: [id number] Attend Dr: Mickie Juarez Bart REE Re10/03/25 Status: DEP REF Location: .LAB Disch: SPEC : [id number] BRAYAN: 10/03/25 STATUS: COMP REQ : [id number] RECD: 10/03/[address]: Mickie Juarez COMP: 10/03/25 ENTERED: 10/03/[address]: Teresa Phillips [facility] ORDERED: Anti-HCV, HIV Ab/Ag, HBsAG Test Result Flag Reference Anti-HCV Reactive H Nonreactive Presumptive evidence of antibodies to HCV. HIV AB/AG Nonreactive Nonreactive HIV-1 p24 Ag and/or HIV-1/HIV-2 Ab not detected. A test result that is nonreactive does not exclude the possibility of exposure to or infection with HIV-1 and/or HIV-2. Nonreactive results in this assay for individuals with prior exposure to HIV-1 and/or HIV-2 may be due to antigen and antibody levels that are below the limit of detection of this assay. The [employer] HIV Ag/Ab Combo assay result and supplemental assay results should be interpreted in conjunction with the patient's clinical presentation, history and other laboratory results. If the results are inconsistent with clinical evidence, additional testing is suggested to confirm the result. HBsAG Negative Negative END OF REPORT pap= neg, sti testing all neg, hep c reactive, pt has hx and was treated [place] . Assessment & Plan Assessment & Plan (1) Patient desires : Code(s): Z31.9 - Encounter for procreative management, unspecified Category: Medical (2) History of severe pre-eclampsia: Comment: Delivered at 38 weeks, 5 lb, at [facility] 4 years ago. Code(s): Z87.59 - Personal history of other complications of , childbirth and the puerperium Category: Medical (3) Screening for malignant neoplasm of cervix: Comment: 10/03/2025 Pap is negative. Code(s): Z12.4 - Encounter for screening for malignant neoplasm of cervix Category: Medical (4) Hepatitis C virus infection cured after antiviral drug therapy: Code(s): Z86.19 - Personal history of other infectious and parasitic diseases Category: Medical (5) Screen for sexually transmitted diseases: Code(s): Z11.3 - Encounter for screening for infections with a predominantly sexual mode of transmission Category: Medical (6) Atopic dermatitis, unspecified: Code(s): L20.9 - Atopic dermatitis, unspecified Category: Medical Qualifiers: Atopic dermatitis type: unspecified Qualified Code(s): L20.9 - Atopic dermatitis, unspecified (7) Hirsutism: Code(s): L68.0 - Hirsutism Category: Medical Plan Patient is having a tele visit to review her lab results done primarily to explore PCOS type systems of increased facial hair and short menses. She and her partner hoping to get she gets very regular menses she has a history of a high-risk with preeclampsia that was induced and delivered at 38 weeks in the past. I reviewed her labs with her today and reviewed the significance of them. For the hep C positive she was treated in [place] after her with 12 weeks of treatment and was told that she was okay after that but that the hep C may show back active again in the future which it now is. She is attempting to get I did tell her that we do not have a birthing center associated with her facility any longer and since she has a high-risk history she would be best advised to seek care from the very start of a at [facility] so that proper testing a concern could be ordered early in the in any screens necessary would be done then discussed. I did discuss that it would be good for her to be on her vitamin or a multivitamin with folic acid and also that they might treat her in the with baby aspirin. The hormonal levels were all within the normal range including the testosterone FSH LH. We will see her in 1 year if not before. Coding Level of Care Code Tele Est Pt Level 3 (58956) Diagnoses Patient desires Z31.9 History of severe pre-eclampsia Z87.59 Screening for malignant neoplasm of cervix Z12.4 Hepatitis C virus infection cured after antiviral drug therapy Z86.19 Screen for sexually transmitted diseases Z11.3 Atopic dermatitis, unspecified type L20.9 Atopic dermatitis type: unspecified Hirsutism L68.0
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
--- OUTSIDE RECORDS SUMMARY | 2025-10-16 18:45 | XMS_ITS | Data Portability ---
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 Plan of Treatment Reminders Order Date Submit Date Provider Last Modified By Organization Details Last Modified Time Details Appointments None recorded. 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 Procedures None recorded. Surgeries None recorded. Imaging None recorded. Medication Orders Loestrin Fe 12/16 (28-Day) 1 mg-20 mcg (21)/75 mg (7) tablet 2020 021 [facility] #[id number], [address], [place], [address], 15:11:06 Patient TargetsNo targets recorded. Patient Instructions Encounter Date Encounter Id Patient Instructions Last Modified By Organization Details Last Modified Time 04/14/2021 [id number] [facility]alt [facility] screening completed and reviewed with patient. Negative findings. [email or web address] Not available 04/14/2021 15:36:20 Reason for Referral None Reported. Results Created Date Observation Date Name Description Value Unit Range Abnormal Flag Note LastModifiedBy Organization Detail LastModifiedTime 02/20/2002/23/2021 toxic ology scree n, urine Marijuana (THC) negati ve Not Available In-Office Order Internal Use Only DO Not Attach Compendium DO Not Attach Compendium, Do Not Delete/merge, [id number] 02/19/2021 13:14:18 02/20/2002/23/2021 toxic ology scree n, urine Cocaine (BARNEY 300) negati ve Not Available In-Office Order Internal Use Only DO Not Attach Compendium DO Not Attach Compendium, Do Not Delete/merge, 02/19/2021 13:14:18 02/20/2002/23/2021 toxic ology scree n, urine Opiates (MOP) negati ve Not Available In-Office Order Internal Use Only DO Not Attach Compendium DO Not Attach Compendium, Do Not Delete/merge, 02/19/2021 13:14:18 02/20/2002/23/2021 toxic ology scree n, urine Amphetamine (AMP) negati ve Not Available In-Office Order Internal Use Only DO Not Attach Compendium DO Not Attach Compendium, Do Not Delete/merge, 02/19/2021 13:14:18 02/20/2002/23/2021 toxic ology scree n, urine Methamphetam ine (MET) negati ve Not Available In-Office Order Internal Use Only DO Not Attach Compendium DO Not Attach Compendium, Do Not Delete/merge, 02/19/2021 13:14:18 02/20/20 21 02/23/2021 toxic ology scree n, urine Barbiturates (BAR) negati ve Not Available In-Office Order Internal Use Only DO Not Attach Compendium DO Not Attach Compendium, Do Not Delete/merge, [facility] 02/19/2021 13:14:18 02/20/20 21 02/23/2021 toxic ology scree n, urine Benzodiazepi dang (BZO) negati ve Not Available In-Office Order Internal Use Only DO Not Attach Compendium DO Not Attach Compendium, Do Not Delete/merge, [facility] 02/19/2021 13:14:18 02/20/20 21 02/23/2021 toxic ology scree n, urine Methylenedio xymethamphet amine (MDMA Ecstasy) negati ve Not Available In-Office Order Internal Use Only DO Not Attach Compendium DO Not Attach Compendium, Do Not Delete/merge, [facility] 02/19/2021 13:14:18 02/20/20 21 02/23/2021 toxic ology scree n, urine Methadone (MTD) negati ve Not Available In-Office Order Internal Use Only DO Not Attach Compendium DO Not Attach Compendium, Do Not Delete/merge, [facility] 02/19/2021 13:14:18 02/20/20 21 02/23/2021 toxic ology scree n, urine Oxycodone (OXY) negati ve Not Available In-Office Order Internal Use Only DO Not Attach Compendium DO Not Attach Compendium, Do Not Delete/merge, [facility] 02/19/2021 13:14:18 02/20/20 21 02/23/2021 toxic ology scree n, urine Phencyclidin e (PCP) negati ve Not Available In-Office Order Internal Use Only DO Not Attach Compendium DO Not Attach Compendium, Do Not Delete/merge, [facility] 02/19/2021 13:14:18 02/20/20 21 02/23/2021 toxic ology scree n, urine Tricyclic Antidepressa nts (TCA) positi ve Not Available In-Office Order Internal Use Only DO Not Attach Compendium DO Not Attach Compendium, Do Not Delete/merge, [id number] 02/19/2021 13:14:18 01/27/20 21 01/28/2021 cp 34305 7 benzodiazepi dang NEGATI VE NG/mL <100 normal Not Available [facility] [place] [facility] [address], [place], [address], 01/28/2021 04:08:53 01/27/20 21 01/28/2021 cp 00758 7 cocaine metabolite NEGATI VE NG/mL <150 normal Not Available [facility] [address], [place], [address], 01/28/2021 04:08:53 01/27/20 21 01/28/2021 cp 93028 7 opiates NEGATI VE NG/mL <100 normal Not Available [facility] [address], [place], [address], 01/28/2021 04:08:53 01/27/20 21 01/28/2021 cp 62378 7 oxycodone NEGATI VE NG/mL <100 normal Not Available [facility] [address], [place], [address], 01/28/2021 04:08:53 01/27/20 21 01/28/2021 cp 00799 7 comment See Note 1 Not Available [facility] [address], [place], [address], 01/28/2021 04:08:53 01/27/20 21 01/28/2021 cp 18132 7 amphetamines NEGATI VE NG/mL <500 normal Not Available [facility] [place] [facility] [address], [place], [address], 01/28/2021 04:08:53 01/27/20 21 01/28/2021 cp 07410 7 comment See Note 2 Not Available [facility] [place] [facility] [address], [place], [address], 01/28/2021 04:08:53 01/27/20 21 01/28/2021 cp 33938 7 barbiturates NEGATI VE NG/mL <300 normal Not Available [facility] [place] [facility] [address], [place], [address], 01/28/2021 04:08:53 01/27/20 21 01/28/2021 cp 63348 7 comment See Note 2 Not Available [facility] [place] [facility] [address], [place], [address], 01/28/2021 04:08:53 01/27/20 21 01/28/2021 cp 11010 7 marijuana metabolite 20 NEGATI VE NG/mL <20 normal Not Available [facility] [place] [facility] [address], [place], [address], 01/28/2021 04:08:53 01/27/20 21 01/28/2021 cp 55199 7 comment See Note 2 Note 1 This drug testi ng is for medic al treat ment only. The resul ts are presu mptiv e; based only on scree rodrigo metho ds, and they have not been confi rmed by a defin itive metho d. Phuong sis was perfo rmed as [...] alist : [phone] ( [phone] M-F, 8am-6 pm EST. Note 2 [...] alist : [phone] ( [phone] ), M-F, 8am-6 pm EST. Not Available [facility] [place] [facility] [address], [place], [address], 01/28/2021 04:08:53 01/27/2001/26/2021 toxic ology scree n, urine Marijuana (THC) negati ve Not Available In-Office Order Internal Use Only DO Not Attach Compendium DO Not Attach Compendium, Do Not Delete/merge, 01/22/2021 16:00:40 01/27/2001/26/2021 toxic ology scree n, urine Cocaine (BARNEY [...] Attach Compendium, Do Not Delete/merge, 01/22/2021 16:00:40 01/27/2001/26/2021 toxic ology scree n, urine Methamphetam ine (MET) negati ve Not Available In-Office Order Internal Use Only DO Not Attach Compendium DO Not Attach Compendium, Do Not Delete/merge, [id number] 01/22/2021 16:00:40 01/27/20 21 01/26/2021 toxic ology scree n, urine Barbiturates (BAR) negati ve Not Available In-Office Order Internal Use Only DO Not Attach Compendium DO Not Attach Compendium, Do Not Delete/merge, [id number] 01/22/2021 16:00:40 01/27/20 21 01/26/2021 toxic ology scree n, urine Benzodiazepi dang (BZO) negati ve Not Available In-Office Order Internal Use Only DO Not Attach Compendium DO Not Attach Compendium, Do Not Delete/merge, [facility] 01/22/2021 16:00:40 01/27/20 21 01/26/2021 toxic ology scree n, urine Methylenedio xymethamphet amine (MDMA Ecstasy) negati ve Not Available In-Office Order Internal Use Only DO Not Attach Compendium DO Not Attach Compendium, Do Not Delete/merge, [facility] 01/22/2021 16:00:40 01/27/20 21 01/26/2021 toxic ology scree n, urine Methadone (MTD) negati ve Not Available In-Office Order Internal Use Only DO Not Attach Compendium DO Not Attach Compendium, Do Not Delete/merge, [facility] 01/22/2021 16:00:40 01/27/20 21 01/26/2021 toxic ology scree n, urine Oxycodone (OXY) negati ve Not Available In-Office Order Internal Use Only DO Not Attach Compendium DO Not Attach Compendium, Do Not Delete/merge, [facility] 01/22/2021 16:00:40 01/27/20 21 01/26/2021 toxic ology scree n, urine Phencyclidin e (PCP) negati ve Not Available In-Office Order Internal Use Only DO Not Attach Compendium DO Not Attach Compendium, Do Not Delete/merge, [id number] 01/22/2021 16:00:40 01/27/20 21 01/26/2021 toxic ology scree n, urine Tricyclic Antidepressa nts (TCA) positi ve Not Available In-Office Order Internal Use Only DO Not Attach Compendium DO Not Attach Compendium, Do Not Delete/merge, [id number] 01/22/2021 16:00:40 02/10/20 21 02/09/2021 toxic ology scree n, urine Marijuana (THC) negati ve Not Available In-Office Order Internal Use Only DO Not Attach Compendium DO Not Attach Compendium, Do Not Delete/merge, [facility] 02/08/2021 11:56:16 02/10/20 21 02/09/2021 toxic ology scree n, urine Cocaine (BARNEY 300) negati ve Not Available In-Office Order Internal Use Only DO Not Attach Compendium DO Not Attach Compendium, Do Not Delete/merge, [facility] 02/08/2021 11:56:16 02/10/20 21 02/09/2021 toxic ology scree n, urine Opiates (MOP) negati ve Not Available In-Office Order Internal Use Only DO Not Attach Compendium DO Not Attach Compendium, Do Not Delete/merge, [facility] 02/08/2021 11:56:16 02/10/20 21 02/09/2021 toxic ology scree n, urine Amphetamine (AMP) negati ve Not Available In-Office Order Internal Use Only DO Not Attach Compendium DO Not Attach Compendium, Do Not Delete/merge, [facility] 02/08/2021 11:56:16 02/10/20 21 02/09/2021 toxic ology scree n, urine Methamphetam ine (MET) negati ve Not Available In-Office Order Internal Use Only DO Not Attach Compendium DO Not Attach Compendium, Do Not Delete/merge, [facility] 02/08/2021 11:56:16 02/10/20 21 02/09/2021 toxic ology scree n, urine Barbiturates (BAR) negati ve Not Available In-Office Order Internal Use Only DO Not Attach Compendium DO Not Attach Compendium, Do Not Delete/merge, [facility] 02/08/2021 11:56:16 02/10/20 21 02/09/2021 toxic ology scree n, urine Benzodiazepi dang (BZO) negati ve Not Available In-Office Order Internal Use Only DO Not Attach Compendium DO Not Attach Compendium, Do Not Delete/merge, [facility] 02/08/2021 11:56:16 02/10/20 21 02/09/2021 toxic ology scree n, urine Methylenedio xymethamphet amine (MDMA Ecstasy) negati ve Not Available In-Office Order Internal Use Only DO Not Attach Compendium DO Not Attach Compendium, Do Not Delete/merge, [facility] 02/08/2021 11:56:16 02/10/20 21 02/09/2021 toxic ology scree n, urine Methadone (MTD) negati ve Not Available In-Office Order Internal Use Only DO Not Attach Compendium DO Not Attach Compendium, Do Not Delete/merge, [facility] 02/08/2021 11:56:16 02/10/20 21 02/09/2021 toxic ology scree n, urine Oxycodone (OXY) negati ve Not Available In-Office Order Internal Use Only DO Not Attach Compendium DO Not Attach Compendium, Do Not Delete/merge, [facility] 02/08/2021 11:56:16 02/10/20 21 02/09/2021 toxic ology scree n, urine Phencyclidin e (PCP) negati ve Not Available In-Office Order Internal Use Only DO Not Attach Compendium DO Not Attach Compendium, Do Not Delete/merge, [facility] 02/08/2021 11:56:16 02/10/20 21 02/09/2021 toxic ology scree n, urine Tricyclic Antidepressa nts (TCA) positi ve Not Available In-Office Order Internal Use Only DO Not Attach Compendium DO Not Attach Compendium, Do Not Delete/merge, [facility] 02/08/2021 11:56:16 02/17/20 21 02/16/2021 SARS CoV 2 RNA (COVI D-19) , QL, 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 html Not Available [facility] [address] [facility], [place], [address] 02/17/2021 07:47:18 02/17/2002/16/2021 toxic ology scree n, urine Marijuana (THC) negati ve Not Available In-Office Order Internal Use Only DO Not Attach Compendium DO Not Attach Compendium, Do Not Delete/merge, 02/16/2021 11:42:38 02/17/2002/16/2021 toxic ology scree n, urine Cocaine (BARNEY 300) negati ve Not Available In-Office Order Internal Use Only DO Not Attach Compendium DO Not Attach Compendium, Do Not Delete/merge, 02/16/2021 11:42:38 02/17/2002/16/2021 toxic ology scree n, urine Opiates (MOP) negati ve Not Available In-Office Order Internal Use Only DO Not Attach Compendium DO Not Attach Compendium, Do Not Delete/merge, 02/16/2021 11:42:38 02/17/2002/16/2021 toxic ology scree n, urine Amphetamine (AMP) negati ve Not Available In-Office Order Internal Use Only DO Not Attach Compendium DO Not Attach Compendium, Do Not Delete/merge, [facility] 02/16/2021 11:42:38 02/17/20 21 02/16/2021 toxic ology scree n, urine Methamphetam ine (MET) negati ve Not Available In-Office Order Internal Use Only DO Not Attach Compendium DO Not Attach Compendium, Do Not Delete/merge, [facility] 02/16/2021 11:42:38 02/17/2002/16/2021 toxic ology scree n, urine Barbiturates (BAR) negati ve Not Available In-Office Order Internal Use Only DO Not Attach Compendium DO Not Attach Compendium, Do Not Delete/merge, [facility] 02/16/2021 11:42:38 02/17/2002/16/2021 toxic ology scree n, urine Benzodiazepi dang (BZO) negati ve Not Available In-Office Order Internal Use Only DO Not Attach Compendium DO Not Attach Compendium, Do Not Delete/merge, [facility] 02/16/2021 11:42:38 02/17/20 21 02/16/2021 toxic ology scree n, urine Methylenedio xymethamphet amine (MDMA Ecstasy) negati ve Not Available In-Office Order Internal Use Only DO Not Attach Compendium DO Not Attach Compendium, Do Not Delete/merge, [facility] 02/16/2021 11:42:38 02/17/20 21 02/16/2021 toxic ology scree n, urine Methadone (MTD) negati ve Not Available In-Office Order Internal Use Only DO Not Attach Compendium DO Not Attach Compendium, Do Not Delete/merge, [facility] 02/16/2021 11:42:38 02/17/2002/16/2021 toxic ology scree n, urine Oxycodone (OXY) negati ve Not Available In-Office Order Internal Use Only DO Not Attach Compendium DO Not Attach Compendium, Do Not Delete/merge, [id number] 02/16/2021 11:42:38 02/17/20 21 02/16/2021 toxic ology scree n, urine Phencyclidin e (PCP) negati ve Not Available In-Office Order Internal Use Only DO Not Attach Compendium DO Not Attach Compendium, Do Not Delete/merge, [id number] 02/16/2021 11:42:38 02/17/20 21 02/16/2021 toxic ology scree n, urine Tricyclic Antidepressa nts (TCA) positi ve Not Available In-Office Order Internal Use Only DO Not Attach Compendium DO Not Attach Compendium, Do Not Delete/merge, [id number] 02/16/2021 11:42:38 02/24/20 21 02/23/2021 SARS CoV 2 RNA (COVI D-19) , QL, 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 This test has been autho rized by the FDA under an Emerg ency Use Autho rizat ion (EUA) for use by autho rized labor atori es. Metho dolog y: Real- Time RT PCR Addit ional infor edil moody about COVID -19 can be found on the [facility] rs for Disea se Contr ol and Preve ntion websi te: www.KakaMobi.go v/cor onavi graciela/2 019-n cov/i ndex. html Not Available 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 html Not Available [facility] [address] [place], [address] 03/03/2021 07:21:05 03/02/20 21 03/02/2021 toxic ology scree n, urine Marijuana (THC) negati ve Not Available In-Office Order Internal Use Only DO Not Attach Compendium DO Not Attach Compendium, Do Not Delete/merge, [id number] 03/02/2021 09:21:05 03/02/2003/02/2021 toxic ology scree n, urine Cocaine (BARNEY 300) negati ve Not Available In-Office Order Internal Use Only DO Not Attach Compendium DO Not Attach Compendium, Do Not Delete/merge, [id number] 03/02/2021 09:21:05 03/02/20 21 03/02/2021 toxic ology scree n, urine Opiates (MOP) negati ve Not Available In-Office Order Internal Use Only DO Not Attach Compendium DO Not Attach Compendium, Do Not Delete/merge, [id number] 03/02/2021 09:21:05 03/02/2003/02/2021 toxic ology scree n, urine Amphetamine (AMP) negati ve Not Available In-Office Order Internal Use Only DO Not Attach Compendium DO Not Attach Compendium, Do Not Delete/merge, [id number] 03/02/2021 09:21:05 03/02/2003/02/2021 toxic ology scree n, urine Methamphetam ine (MET) negati ve Not Available In-Office Order Internal Use Only DO Not Attach Compendium DO Not Attach Compendium, Do Not Delete/merge, [id number] 03/02/2021 09:21:05 03/02/2003/02/2021 toxic ology scree n, urine Barbiturates (BAR) negati ve Not Available In-Office Order Internal Use Only DO Not Attach Compendium DO Not Attach Compendium, Do Not Delete/merge, [id number] 03/02/2021 09:21:05 03/02/2003/02/2021 toxic ology scree n, urine Benzodiazepi dang (BZO) negati ve Not Available In-Office Order Internal Use Only DO Not Attach Compendium DO Not Attach Compendium, Do Not Delete/merge, [id number] 03/02/2021 09:21:05 03/02/2003/02/2021 toxic ology scree n, urine Methylenedio xymethamphet amine (MDMA Ecstasy) negati ve Not Available In-Office Order Internal Use Only DO Not Attach Compendium DO Not Attach Compendium, Do Not Delete/merge, [id number] 03/02/2021 09:21:05 03/02/20 21 03/02/2021 toxic ology scree n, urine Methadone (MTD) negati ve Not Available In-Office Order Internal Use Only DO Not Attach Compendium DO Not Attach Compendium, Do Not Delete/merge, [id number] 03/02/2021 09:21:05 03/02/20 21 03/02/2021 toxic ology scree n, urine Oxycodone (OXY) negati ve Not Available In-Office Order Internal Use Only DO Not Attach Compendium DO Not Attach Compendium, Do Not Delete/merge, [id number] 03/02/2021 09:21:05 03/02/20 21 03/02/2021 toxic ology scree n, urine Phencyclidin e (PCP) negati ve Not Available In-Office Order Internal Use Only DO Not Attach Compendium DO Not Attach Compendium, Do Not Delete/merge, [id number] 03/02/2021 09:21:05 03/02/2003/02/2021 toxic ology scree n, urine Tricyclic Antidepressa nts (TCA) positi ve Not Available In-Office Order Internal Use Only DO Not Attach Compendium DO Not Attach Compendium, Do Not Delete/merge, [id number] 03/02/2021 09:21:05 02/17/2002/16/2021 US, obste tric[facility] [address] [place], [address], 02/16/2021 15:37:18 Result Notes None recorded. Problems Name Problem SNOMED Code Status Onset Date Resolution Date Notes Provider Name and Address Organization Details Recorded Time Long-ter m current use of antipsyc hotic medicati on 33339761160 119102 Completed Currentl y using Qeutiapi ne and Prazosin . Level 2 USN schedule d. TBF LEVEL II USN wnl. Nerissa Lopez [place], [place] - [facility] 1 12:42:50 Heroin dependen ce 162089852 Completed Hx of heroin use - not currentl y using. QTOX at IPG. TBF 02/23/21: Opiod negative . christiana [place], [place] - [facility] 1 12:42:50 Group B Streptoc occus carrier [id number] 03 Completed GBS in urine. needs tx in labor. TB Nerissa [place], [place] - [facility] 1 12:42:50 Hepatiti s C carrier [id number] Completed Hep C + with IPG labs. Check viral load. GI referral . TBF Negative Hep A & CMP, 01/17. [facility] Nerissa [place], [place] - [facility] 1 12:42:50 Benzodia zepine dependen ce 695578307 Completed Initial QTOX with benzo +. Review at next OB visit. Confirm meds. WIll need serial QTOX. TBF 02/23/21: Benzo negative . [facility] Nerissa Sinlelandtania [place], [place] - [facility] 1 12:42:50 Harmful pattern of use of Cannabis 49418325 Completed Qtox at 12 wks + for MJ, else negative --to review w/ pt at next visit. [facility] 10/01/20: MJ+: REVIEWED AT LENGTH and she admits to smoking recreati onally - I encourag ed her to QUIT. Will retest q/visit. ktb 10/01/20: MJ+. ktb 02/23/21: MJ negative . kt Nerissa Jessica [place], [place] - [facility] 1 12:42:50 Depressi ve disorder 78350321 Active 2017 also anxiety- -sees psychiat rist/on Lexapro. Level 2 anatomy USN ordered. TBF 02/23/21: TCA positive (on antidepr essants) . [facility] Nerissa Lopez [place], [place] - [facility] 1 12:42:50 Anxiety 66702354 Active 2017 Jina [place], [place] - [facility] 8 14:35:46 Drug addict 885889857 Active 2017 Jina [place], [place] - [facility] 8 14:35:58 Depressi ve disorder 27889205 Completed 2017 also anxiety- -sees psychiat rist/on Lexapro. Level 2 anatomy USN ordered. TBF 02/23/21: TCA positive (on antidepr essants) . ktb Nerissa Jessica [place], [place] - [facility] 12:42:50 Pregnanc y 39519426 Completed 201903/08/2021 Nerissa Jessica [place], [place] - [facility] 12:43:02 Problem Notes None recorded. Procedures Surgical History Date Name Laterality Status Provider Name and Address Organization Details Recorded Time 04/14/2021 Q2B-ZIUD (0503F) completed SAM TEE DO [address] [facility] [facility], [place], [address], [facility] - [facility] 04/14/2021 15:36:26 02/09/2021 W3X-MHU completed Maria Teresa Valdez [place] - [facility] 02/09/2021 09:24:17 12/07/2020 F8D-YPG completed Maria Teresa Valdez [facility] 12/07/2020 08:55:37 11/02/2020 V8N-TRC completed Maria Teresa Valdez [place] - [facility] 11/02/2020 09:57:04 10/01/2020 W5X-KKD completed Nerissa Lopez [place] - [facility] 09/30/2020 13:59:03 08/06/2020 P4P-OB (0500F) completed SAM TEE DO [address] [facility], [address] Floor, [place], [address], [facility] - [facility] 08/06/2020 12:16:29 11/16/2018 S1G-SEXFM completed ALMA DELIA MCPHERSON APRN [address] [facility], [address], [place], [address], [place] - [facility] 11/16/2018 10:52:07 11/16/2018 S1X-EQY completed ALMA DELIA MCPHERSON APRN [address] [facility], [address], [place], [address], [place] - [facility] 11/16/2018 10:52:05 Imaging Results None recorded. Procedure Notes None [...] Not Available Not Available No t Available 12/16 (28) 1 mg-20 mcg (21)/75 mg [...] completed Not Available Not Available Not Available Nura (28) 0.15 mg-0.03 mg tablet TAKE 1 TABLET BY MOUTH EVERY DAY active Not Available Not Available No t Available Vitals Date Recorded Body height Body weight Systolic And Diastolic Provider Name and Address Organization Details Last Updated DateTime 02/23/2021 171.45 cm 841593.016 2 g 118/74 mm[Hg] Paola Lund[place] - [facility] 02/23/2021 11:29:35 Date Recorded Body weight Body mass index (BMI) [Percentile] Per age and sex Body mass index (BMI) Body height Systolic And Diastolic Systolic And Diastolic Provider Name and Address Organization Details Last Updated DateTime 554174. 14371 g 98 % 41.4 kg/m2 171.45 cm 140/90 mm[Hg] 134/90 mm[Hg] Maria Teresa Guillorykirk [facility] 09:54:59 Date Recorded Body height Body mass index (BMI) [Percentile] Per age and sex Body mass index (BMI) Body weight Systolic And Diastolic Provider Name and Address Organization Details Last Updated DateTime 03/11/2021 171.45 cm 97 % 36.9 kg/m2 036198. 58 g 128/90 mm[Hg] Nika Irvin [facility] 15:17:11 Date Recorded Body height Body mass index (BMI) Body mass index (BMI) [Percentile] Per age and sex Body weight Systolic And Diastolic Provider Name and Address Organization Details Last Updated DateTime 03/18/2021 171.45 cm 36.1 kg/m2 97 % 442261. 61 g 128/66 mm[Hg] Nika Irvin [facility] 10:14:56 Date Recorded Body height Body mass index (BMI) Body mass index (BMI) [Percentile] Per age and sex Body weight Systolic And Diastolic Provider Name and Address Organization Details Last Updated DateTime 04/14/2021 171.45 cm 36.9 kg/m2 97 % 188396. 58 g 122/68 mm[Hg] Nerissa Lopez [facility] 14:47:09 Social History Question Answer Notes LastModified by Organizat ion Details LastModified Time Tobacco Smoking Status Smoker, Current Status Unknown vapes daily but trying to cut back 08/06/2020 Bianca bullard, [facility] 10/01/2020 14:50:43 Do You Reside In Or Have You Traveled To An Area Where Ebola Virus Transmission Is Active? No Information not available 10/01/2020 Have There Been [...] Or Lived In A Zika-affected Area? No [email or web address] Information not available 07/31/2020 Sex: Unknown Functional Status Question Answer Note LastModified by Organizat ion Details LastModified Time What is your level of alcohol consumption? None Information not available 10/01/2020 Do you or have you ever used e-cigarettes or vape? Current user of electronic cigarettes Information not available 10/01/2020 What is your exercise level? Occasional cbinette [...] been on isolation N Anxiety Disorder Y Arthritis N HSV N Infertility N Abnormal pap N Interstitial Cystitis N Acid Reflux (GERD) N Cancer N [...] Immunizations Vaccine Type Date Status Note Provider Lcuius joaquin and Address Organization Details Recorded Time Influenza, split virus, quadrivalent, preservative 0 completed Maria Teresa bullard [place] - [facility] 11/02/2020 09:56:09 Tdap 1 completed LIZBETH Soni - [facility] 01/04/2021 09:56:42 Past Encounters Encounter ID Performer Location Encounter Start Date Encounter Closed Date Diagnosis/Indication Diagnosis SNOMED-CT Code Diagnosis ICD10 Code Diagnosis IMO Codes Diagnosis Note [id number] ALMA DELIA MCPHERSON, [facility] [place] [facility] [address] [place] [address] 12/20/2017 14:00:45 12/21/2017 11:52:35 Venereal disease screening 895432475 Z11.3 Pt diagnosed w/chlamydi a three weeks ago/needs KAIT Gynecologi c examination 87482989 Z01.419 Well woman exam Rev SBE Pap [...] diet/exerc ise F/up 1 year/prn Contraception care 52557 5005 Z30.40 Pt on Tri-Sammie- -wants to change contracept ion Disc all options: Patch/Ring /Depo/LARC Wants to try Nuvaring Advised pt that oxcarbazep ine interacts with all forms of hormonal contracept ion--ok to go on Nuvaring for cycle control but needs to use backup to prevent for now Pt to advise Consent signed [id number] LARISSA CHICAS DO [facility] [address] [place] [address] 05/10/2018 14:28:26 05/11/2018 16:07:57 Contraception care 121984199 Z30.40 Patient due for removal of Nuvaring [...] in the next week to call for [facility]. [id number] ALMA DELIA MCPHERSON APRN G5 [address] [place] [address] 11/16/2018 10:07:16 11/16/2018 11:52:48 Vaginitis 27148156 N76.0 Venereal d isease screening 206606590 Z11.3 Pain in pelvis 72645052 R10.2 Pt w/pelvic pain x 6+ months [...] were answered to the patient's satisfacti on. [id number] LARISSA CHICAS DO G[address] [place] [address] 12/28/2018 10:34:30 12/28/2018 15:03:33 Contraception care 333966098 Z30.40 Patient wishes to continue Nuvaring, risks/bene fits/alter natives reviewed. Consent signed. Will prescribe refills x one year. 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 Pap deferred due to patient age. GC/CL and Affirm sent today. reviewed self breast exam. CA Risk Assessment reviewed at length - normal risk. Return for annual in one year. Pain in pelvis 50482398 R10.2 Patient evaluated at office visit in [...] etc advised to call. Blood in urine 81330701 R31.9 Patient notes intermitte nt dysuria and frequency. Will send UA, culture as well as GC/CL for evaluation . Vaginitis 75978628 N76.0 Female pel virginia inflammatory disease 619050562 N73.9 See pelvic pain below Venereal d isease screening 447998901 Z11.3 [id number] SAM TEE , DO [facility]5 [address] [place] [address] 08/06/2020 10:02:18 08/10/2020 12:29:19 Routine care 253877156 Z34.90 Patient in the office for her initial OB visit. Doing well so far. Reviewed early issues and discussed precaution s including cramping, bleeding, discharge, morning sickness. Denies headache, fever, chills, cp, sob, bleeding, severe N/V. Occasional cramping. Reviewed [facility] practice policies and procedures . Reviewed male providers, importance of compliance with care, delivery and surgery at , associate automation engineer resident indu godinez, jamshid, bug, zika, and travel precaution s. Reviewed [...] and testing. TBF Gestation period, 8 weeks 63115488 Z3A.08 Depression screening 171 507655 Z13.31 [facility] [id number] DANNA CASTELLANOS MD [facility]5 [address] [place] [address] 09/03/2020 11:12:40 09/04/2020 12:02:54 Gestation period, 12 weeks 69983104 Z3A.12 Routine an tenatal care 092241630 Z34.01 Pt is still waiting for dr to call regarding + hep c results. Pt has some n/vergara, no swelling or vomiting. 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 Reviewed all results to date. Pt is awaiting call for GI eval, we will again try to contact GI office today. Pt aware of scheduled NT USN, intends to complete 1st tri screening today. RTO 4 wks History of drug abuse 37 5182801 F19.11 [id number] AMERICA CANSECO [place] [address] [address] [place] [address] 10/01/2020 14:50:31 10/05/2020 13:33:43 Routine care 238869129 Z34.92 Urinary symptoms 0191510 08 R39.9 Gestation period, 16 weeks 24516612 Z3A.16 [id number] LARISSA CHICAS, [place] [address] [address] [place] [address] 11/02/2020 09:44:04 11/04/2020 16:11:40 Routine care 562090827 Z34.92 Doing well, no complaints . s/p [...] yet done this, planning to go today. [id number] DANNA CASTELLANOS MD G[address] [place] [address] 12/07/2020 08:44:26 12/08/2020 08:47:50 Normal 71943262 Z34.03 Z34.83 Z34.93 Headaches: Occ Nausea: No Vomiting: No movement: Yes Contractio ns: No Pt aware needs to go for 28 week bld work due 12/23/2020 at [employer] Pt given info regarding cord bld and [...] labs. RTO 4 wks Depression screening 171 775931 Z13.32 Completed, results negative Routine an tenatal care 173715146 Z34.02 Gestation period, 25 weeks 21264136 Z3A.25 [id number] DANNA CASTELLANOS MD G[address] [place] [address] 01/04/2021 09:09:22 01/04/2021 14:02:55 Routine care 845897233 Z34.02 Headaches: No Nausea: No Vomiting: No movement: Yes Contractio ns: No Qtoxo in office today. Tdap given today Pt denies c/o, notes + FM & no ctxns. Reviewed results to date. Pt awaiting review o f recent lab eval w/ GI. Office qtox negative save for TCA. RTO 3 Gestation period, 29 weeks 19053306 Z3A.29 [id number] SAM TEE DO WHG[address] [place] [address] 01/26/2021 10:30:56 01/27/2021 08:38:56 Routine care 353079475 Z34.90 Routine OB visit. Size = date. FHR reassuring . Denies headache, fever, chills, cp, sob. No regular cramping or contractio ns. Sun, bug, Zika, travel precaution s all reviewed. COVID, PTL, and FM precaution s all discussed. EFW USN at 36 wga scheduled. QTOX today. GBS +, no culture needed at 36 wga. RTO in 2 weeks. TBF Gestation period, 32 weeks 0449892 Z3A.32 [id number] SAM TEE , DO [facility]5 [address] [place] [address] 02/09/2021 09:16:45 02/10/2021 12:04:59 Routine care 326332849 Z34.90 Routine OB visit. Size = date. FHR reassuring . Denies headache, fever, chills, cp, sob. No regular cramping or contractio ns. Sun, bug, Zika, travel precaution s all reviewed. COVID, PTL, and FM precaution s all discussed. EFW USN upcoming. GBS +, no culture at 36 wga needed. RTO in 1 week. TBF Gestation period, 34 weeks 71143036 Z3A.34 [id number] MICHELLE SOLO MD [facility]5 [address] [place] [address] 02/16/2021 14:21:10 02/18/2021 13:34:55 Viral screening 929622337 Z11.59 Routine an tenatal care 285694282 Z34.93 Depression screening 171 019264 Z13.32 B ehavioral health screening completed and reviewed with patient. Negative findings. Gestation period, 35 weeks 85149549 Z3A.35 [id number] AMERICA HARLEEN, [facility]5 [address] [place] [address] 02/23/2021 11:08:41 02/24/2021 11:28:04 Routine care 867839988 Z34.92 Viral screening 70765712 4 Z11.52 Gestation period, 36 weeks 79457216 Z3A.36 [id number] DANNA CASTELLANOS MD G[address] [place] [address] 03/02/2021 09:09:31 03/04/2021 09:29:56 Viral screening 761666970 Z11.59 Routine an tenatal care 715060358 Z34.02 Headaches: Yes Migraine now took tylenol [...] further eval pp. Gestation period, 37 weeks 16369600 Z3A.37 [id number] AMERICA CANSECO, DO [facility] [place] [address] 03/11/2021 15:12:09 03/12/2021 10:49:38 Hypertension complicating , childbirth and the puerperium 429141785 O16.9 Pt readmitted to on 03/09 with elevated BPs, no rpt MgSO4 given. Dc home 03/10 with Nifedipine 60 mg XR . Feels well. Denies VERGARA, Visual changes, [...] to recheck BP while on both meds. [id number] SAM TEE , [facility] [place] [address] 03/18/2021 10:11:48 03/19/2021 13:06:57 Blood pressure outside reference range 21714845 Z01.31 Pt in office for BP check. [...] e with this plan. All questions answered. [id number] SAM TEE , [facility] [place] [address] 04/14/2021 14:43:48 04/15/2021 15:53:40 care 494329754 Z39.2 Patient in the office for routine [...] visual changes, CP, SOB. Depression screening 171 948662 Z13.32 negative depression screening Contraception care 73016 5000 Z30.40 Reviewed risks of OCPs. Alternativ e [...] Member ID Ceja Member ID Guarantor Name 05/26/2021 1 [facility] [id number] Juan Haro [id number] Danica Haro 04/11/2021 1 [place] [id number] Amada Haro [id number] Danica Haro 05/26/2021 2 [place] Danica Haro [id number] Danica Haro Notes Date Note Type Note Provider Name and Address Organization Details Recorded Time 03/11/2021 text/html Pt readmitted to on 03/09 with elevated BPs, no rpt MgSO4 given. Dc home 03/10 with Nifedipine 60 mg XR. Feels well. Denies VERGARA, Visual changes, RUQ Pian, N/V. AMERICA CANSECO, DO [address] [facility] [facility], [place], [address], [facility] 03/11/2021 15:45:15 03/18/2021 text/html ROS as noted in the HPI NO headache or visual changes. NO RUQ pain. SAM TEE, DO [address] [facility] [facility], [place], [address], [facility] 03/18/2021 10:25:52 04/14/2021 text/html [facility] VisitReported by PatientHPIFor associated symptoms, patient reportsno abnormal bleeding,no pelvic pain,laceration well healed,no constipation,no fecal incontinence,no dysuria,no urinary incontinence,no fever,no problems, andno mastitis. SAM TEE, [address] [facility], [address] [place] [address], [place], [address], [facility] 04/15/2021 13:39:34 OBGyn Episode Ob Episode Information Episode Created Date Number of Fetuses Patient Bloodtype Patient rh Status Prepregnancy Weight lbs Domestic Partner Domestic Partner Phone Father Name Hand Cigar Maker Status 07/31/20 20 1 A Positive 140 [facility] CLOSED Fetus Data First Name Last Name Admitted to NICU Weight (g) Sex Living Outcome Pediatric Complications Fetus ID Race Codes Race Delivery Type Eligio 2324.65 9 F true Full Term [id number] Vaginal Delivery Problems Problem Notes no past hx chicken pox, + ca ffeine (soda x1 a day), no cats in home (cats in parents home)02/23/21: COVID negative. ktb Problem Name Start Date End Date Resolution Snomed Code Not e Harmful pattern of use of Cannabis 94109371 Qtox at 12 w ks + for MJ, else negative--to review w/ pt at next visit. CSD10/01/20: MJ+: REVIEWED AT LENGTH and she admits to smoking recreationally - I encouraged her to QUIT. Will retest q/visit. ktb112/01/19: MJ+. kt02/23/21: MJ negative. ktb Group B Streptococcus carrier 1562339180454 GBS in urine. needs tx in labor. TBF Long-term current use of antipsychotic medication 57874108787157510 Currently using Qeutiapine and Prazosin. Level 2 USN scheduled. TBFLEVEL II USN wnl. Heroin dependence 848009114 Hx of heroin use - not currently using. QTOX at [facility]. 02/23/21: Opiod negative. ktb Depressive disorder 12/20/2017 78314931 also anxiety--sees psychiatrist/on Lexapro. Level 2 anatomy USN ordered. 02/23/21: TCA positive (on antidepressants) . ktb Hepatitis C carrier 163067364 Hep C + with [facility] labs. Check viral load. GI referral. TBF Negative Hep A & CMP, 01/17. CSD Benzodiazepine dependence 535470696 Initial QTOX with benzo +. Review at next OB visit. Confirm meds. WIll need serial QTOX. 02/23/21: Benzo negative. ktb Trevor Calculation Initial Trevor [...] Latest Days Gestation 0 03/17/20 21 0 Pre- Flowsheet Flowsheet Date 08/06/2020 Cooley Score Blood Edema Fundus Height Fundus Units Glucose Ketones Leukocytes Nitrite Labor Signs Protein Cervic Dilation Cervic Effacement Cervic Station none Other (see comments ) 0cm Type Weight in lbs Pre/Post Dialysis Refused With clothes 172.756379384752 BP Diastolic BP Location Tested BP Systolic [...] sob, bleeding, severe N/V. Occasional cramping. Reviewed [facility] practice policies and procedures. Reviewed male providers, importance of compliance with care, delivery and surgery at , associate automation engineer resident involvement, sun, bug, zika, and travel [...] Weight in lbs Pre/Post Dialysis Refused Weight 179.221632497914 BP Diastolic BP Location Tested BP Systolic BP Type 70 112 Fetus Heart Rate Present A 147 Fetus Movement Comments Pt is still waiting for dr herbert zamora call regarding + hep c results. Pt [...] Weight in lbs Pre/Post Dialysis Refused Weight 179.220075720943 BP Diastolic BP Location Tested BP Systolic [...] Weight in lbs Pre/Post Dialysis Refused Weight 190.991333203307 BP Diastolic BP Location Tested BP Systolic BP Type 56 112 Fetus Heart Rate Present A 150 Present Fetus Movement A Yes Comments Headaches; Occ tylenol effec tiveNausea: NoVomiting: Nofetal movement: YesContractions: NoAnatomy scan done 10/23at SFHQtox in officeFlu vaccine done at pedi ([facility]) office 08/2020Doing well, no complaints. s/p flu [...] Weight in lbs Pre/Post Dialysis Refused Weight 214.204110537301 BP Diastolic BP Location Tested BP Systolic BP Type 60 116 Fetus Heart Rate Present A 147 Fetus Movement A Yes Comments Headaches: OccNausea: NoVomi ting: NoFetal movement: YesContractions: NoPt aware needs to go for 28 week bld work due 12/23/2020 at [facility] Pt given info regarding cord bld and [...] Weight in lbs Pre/Post Dialysis Refused Weight 225.380679739055 BP Diastolic BP Location Tested BP Systolic [...] Weight in lbs Pre/Post Dialysis Refused Weight 239.215781198250 BP Diastolic BP Location Tested BP Systolic [...] Weight in lbs Pre/Post Dialysis Refused Weight 248.120085812465 BP Diastolic BP Location Tested BP Systolic [...] Weight in lbs Pre/Post Dialysis Refused Weight 258.602002280693 BP Diastolic BP Location Tested BP Systolic [...] Weight in lbs Pre/Post Dialysis Refused Weight 260.233178492446 BP Diastolic BP Location Tested BP Systolic [...] Weight in lbs Pre/Post Dialysis Refused Weight 268.397984248440 BP Diastolic BP Location Tested BP Systolic BP Type 90 140 sitting 90 134 sitting Fetus Heart Rate Present A 125 Fetus Movement A Yes Comments Headaches: Yes Migraine now took tylenol not effective took excedrin migraine Nausea: now due to migraineVomiting: NoFetal movement: YesContractions: Yes/Fabian hicksCovid testing in office.Pt reports occas ctxns, [...] At Estimated Date of Delivery false Thalassemia (Latvian, Macedonian, Mediterranean, Or Background): MCV < 80 false pt's father? Neural Tube Defect (Meningom yelocele, Spina Bifida, Or Anencephaly) false Congenital Heart Defect false Down Syndrome false Edward-Sachs (eg, Latter-Day, Cajun , [place]an[place]) false Dejan Disease false Sickle Cell Disease [...] Other Infection History false Familial Dysautonomia (Ashkenazi Latter-Day) false Spinal Muscular Atrophy false Parkinson Disease true maternal great aunt History of HIV false History of Hepatitis false Prior GBS-infected child false Plans and Education First Trimester Discussed Date Discussion Item Discussion Note Discuss ed By 08/06/2020 Anticipated course of care 08/06/2020 Alcohol 08/06/2020 Intimate partner violence tf [email or web address] 08/06/2020 Environmental/work hazards t 08/06/2020 Screening for aneuploidy tfi 08/06/2020 Nutrition counseling ; special diet; dietary precautions (mercury, listeriosis) 08/06/2020 Childbirth classes/hospital facilities 08/06/2020 HIV and other routine tests 08/06/2020 Risk factors identif ied by history 08/06/2020 Weight gain counseling 08/06/2020 Exercise 08/06/2020 Teratogens 08/06/2020 Use of any medicatio ns (including supplements, vitamins, herbs, or OTC drugs) [id number] 08/06/2020 08/06/2020 Sexual activity [email or web address] 4 08/06/2020 Tobacco/smoking cess ation counseling (ask, advise, assess, assist, and arrange) 08/06/2020 Illicit/recreational drugs t 08/06/2020 Dental care 08/06/2020 Travel 08/06/2020 Seat belt use 08/06/2020 Indications for ultrasonography 08/06/2020 Avoidance of saunas or hot tubs [id number] 08/06/2020 Toxoplasmosis precau tions (cats/raw meat) [id number] Second Trimester Discussed Date Discussion Item Discussion Note Discuss ed By 10/01/2020 Selecting a care provider [email or web address] 10/01/2020 Abnormal lab values sindhuarmand [email or web address] 10/01/2020 Signs and symptoms of labor [email or web address] 10/01/2020 Intimate partner violence sindhu [email or web address] 10/01/2020 Provided information about childbirth education classes [email or web address] Third Trimester Discussed Date Discussion Item Discussion Note Discuss ed By 02/23/2021 Intimate partner violence sindhu [email or web address] 01/26/2021 Anesthesia plans [email or web address] 02/09/2021 education (n ewborn screening, jaundice, SIDS/safe sleeping position, car seat) [id number] 02/09/2021 Postterm counseling tfitzger ald14 01/26/2021 movement monitoring tf 02/23/2021 [email or web address] 01/26/2021 Labor signs [email or web address] 01/26/2021 Family medical leave or disability forms [id number] 02/23/2021 Signs and symptoms of preeclampsia [email or web address] 01/26/2021 Discussed and offered TDAP t [email or web address] Delivery Information Delivery Date Delivery Type Labor Anesthesia Weeks Gestation Incision Type Labor Labor Length Hrs Delivered By Post Complications Tubal Sterilization Discharge Date Comments [facility] 38 Larissa Chicas DO 03/05/2021 Discharge Information Feeding Method Contraceptive Method Maternal HG B and HCT Levels Bottle
--- OUTSIDE RECORDS SUMMARY | 2025-10-16 18:45 | XMS_ITS | Encounter Summary ---
Author Organization [facility] Address [address] [place] [address] Care Team Providers Care Running Instructor Name Role Phone Marina Souza NP Primary Care Provider + Encounter Details Date Type Department Care Team Description 03/03/2021 Records Encounter HIM OFFICE [address] [place] [address] Provider, Not In System Social History Tobacco [...] on filedocumented in this encounter Care Teams Running Instructor Relationship Specialty Start Date End Date Marina Souza NP [address] [place] [address] PCP - General Family Medicine 08/23/21 documented as of this encounter
--- OUTSIDE RECORDS SUMMARY | 2025-10-16 18:45 | XMS_ITS | Clinical Summary ---
Author Organization [facility] Address [address] [place] [address] Care Team Providers Care Reserve Operator Name Role Phone Venancio Chaudhari MD Primary Care Provider [phone] [facility] Unavailable Allergies No known active allergies [...] ORDERABLES Final Res ult Performing Organization Address City/State/[facility] Co de Phone Number [facility] [address] [place], [place] * (ABNORMAL) Hepatitis C Virus (HCV) Antibody (08/12/2020 2:42 PM EDT) Hepatitis C Antibody 9.62 Reactive(A ) Non-Reacti ve S/CO [facility] Comment: CDC recommends a pkywdw-gr-tgmyds (S/CO) ratio equal to or >5 to predict true infection 95% of the time. Low reactive results (1.0-4.99 S/CO) should be confirmed by HCV nucleic acid testing. Other 08/12/2020 2:42 PM EDT 08/13/2020 1:51 AM EDT Narrative [facility] - 08/13/2020 11:03 AM EDT FASTING:NO us Syd Woods DO LAB BLOOD ORDERABLES Amber too Result Performing Organization Address City/State/[facility] Co de Phone Number [facility] [address] [place], [place] from Last 3 Months or Most [...] 10:22 PM 12/29/2017 10:15 PM Care Teams Reserve Operator Relationship Specialty Start Date End Date Venancio Chaudhari MD [address] [facility] [address] [place] [address] PCP - General Pediatric, General 11/09/17 Blake Ye RPH [address] [facility] [place] [address] Pharmacist 11/10/17
--- OUTSIDE RECORDS SUMMARY | 2025-10-16 18:45 | XMS_ITS | Clinical Summary ---
Author Organization [facility] Address [address] [place] [address] Care Team Providers Care Conservation Biology Professor Name Role Phone Venancio Chaudhari MD Primary Care Provider [phone] Source Comments Please note that some or [...] so, obtain the minor's consent prior to disclosure.[facility] Allergies No known active allergies Medications [...] EST) HIV 1/2 Ag/Ab CMIA Nonreactive Nonreactive [facility] Comment: Results show no evidence of infection by HIV 1/2. If clinically indicated, repeat CMIA or test by nucleic acid amplification. [facility] - [address] [place] [address] CLIA #:[id number] Tacos Iglesias MD Camp Advisor 11/06/2017 2:00 PM EST 11/07/2017 1:25 PM EST us [facility] [place] Provider LAB BLOOD ORDERABLES Fi nal Result [facility] [address] [place] [address], [facility] [phone] from Last 3 Months or Most Recently Relevant to Health Maintenance Insurance [employer] [facility] [employer] AMBERLY Ravi Care Teams Conservation Biology Professor Relationship Specialty Start Date End Date Venancio Chaudhari MD [address] [facility] [address] [place], [place] [address] PCP - General General Pediatrics 09/21/16
--- OUTSIDE RECORDS SUMMARY | 2025-10-16 18:45 | XMS_ITS | Clinical Summary ---
Author Organization [facility] Address [address] [place] [address] Care Team Providers Care Compound Filler Name Role Phone Marina Souza NP Primary [...] Advance Directives For more information, please contact: [phone] Latest Code Status on File Code Status [...] way: discussion with patient . Care Teams Compound Filler Relationship Specialty Start Date End Date Marina Souza NP [address] [place] [address] PCP - General Family Medicine 08/23/21
== END 2025-10-16 13:37 | disposition home or self-care (01) ==
LOC: HO.HWS 13:12
PROVIDERS: PCP Nurse Practitioner Family; Visit Provider Advanced Practice Midwife
DX: Z31.9 Encounter for procreative management, unspecified (principal); Z87.59 Personal history of other complications of pregnancy, childbirth and the puerperium; Z12.4 Encounter for screening for malignant neoplasm of cervix; Z86.19 Personal history of other infectious and parasitic diseases; Z11.3 Encounter for screening for infections with a predominantly sexual mode of transmission; L20.9 Atopic dermatitis, unspecified; L68.0 Hirsutism
CPT/HCPCS: 99213